=== PATIENT | male | born 1975 | race African-American/Black ===

== ENCOUNTER 2019-05-16 11:55 | Inpatient (IN) | payer MEDICARE, SELFPAY ==
[2019-05-16] VITALS (10 sets, daily range): BP systolic 140–209; BP diastolic 83–124; PULSE 73–83; RESP 12–24; TEMP 36.6–36.9; O2SAT 94–100; BMI 23.0
--- NOTE | ~2019-05-16 | XR_ITS ---
EXAMINATION: XR chest 1V portable EXAM DATE: 05/16/2019 12:39 INDICATION: Hypertension. TECHNIQUE: Single frontal portable AP chest x-ray. Comparison is made to prior examination from 04/20. FINDINGS: Again there is cardiomegaly and pulmonary vascular congestion. Possible mild pulmonary herbert ma. No confluent consolidation, pneumothorax or pleural effusion suspected. There are no osseous abno rmalities identified. Overall congestive changes either stable or with mild interval improvement comp ared to prior study. IMPRESSION: Cardiomegaly, pulmonary vascular congestion. Possible mild pulmonary edema. Reviewed, dictated and finalized at location B. ETIC TAPE TYPEWRITER OPERATOR IMPRESSION: Cardiomegaly, pulmonary vascular congestion. Possible mild pulmona ry edema.
--- NOTE | ~2019-05-16 | CT_ITS ---
EXAMINATION: CT brain wo con EXAM DATE: 05/16/2019 13:06 INDICATION: Headache, hypertension. TECHNIQUE: Spiral CT of the head was performed without contrast. Axial, coronal and sagittal images were reviewed. The dose-length product (DLP) for this examination was 529.67 mGy-cm. The exposure w as tailored according to patient size, and iterative reconstruction (ASIR) was used as additional dos e reduction technique. There is no prior study for comparison. FINDINGS: There are scattered periventricular and subcortical hypodensities, a non-specific finding w ith differential diagnosis including premature chronic small vessel ischemic disease (especially if t he patient has cardiovascular risk factors), migraine headaches, demyelinating disease such as multip le sclerosis or acute disseminated encephalomyelitis (ADEM), vasculopathy, lyme's disease or reactive astrocytosis (gliosis) secondary to nonspecific etiology. There is no acute intraparenchymal hemorrhage. No evidence of intraparenchymal brain mass lesion. N o evidence of acute infarction. There is no mass effect or midline shift. The ventricles are normal in size. There are no extra-axial collections. There are no acute calvarial fractures. The orbits are unremarkable. Soft tissue is unremarkable. The visualized sinuses and mastoid air cells are wel l aerated. IMPRESSION: Moderate scattered nonspecific subcortical hypodensities unchanged. Reviewed, dictated and finalized at location B. ATOR SPECIALIST
--- NOTE | 2019-05-16 12:00 | ECG_ITS ---
Measurements Intervals [place] Rate: 78 P: 69 HI: 191 QRS: -20 QRSD: 96 T: 64 QT: 437 QTc: 499 Interpretive Statements SINUS RHYTHM LEFT ATRIAL ENLARGEMENT DELAYED PRECORDIAL R/S TRANSITION LEFT VENTRICULAR HYPERTROPHY AND ST-T CHANGE ST-T WAVE ABNORMALITY IN LATERAL LEADS- CONSIDER ISCHEMIA BASELINE ARTIFACT- I, II, III, AVR ABNORMAL ECG Electronically Signed On 05-16-2019 13:57:33 HEARING SCREENER by Pranav Adams D.O.
--- NOTE | 2019-05-16 12:09 | ED.GENADULT ---
HPI - General Adult General Chief complaint: Recheck/Abnormal Lab/Rx Stated complaint: HTN Time Seen by Provider: 05/16/19 11:56 Source: patient and EMS Mode of arrival: EMS History of Present Illness HPI narrative: Patient referred to the emergency room from dialysis center today because of elevated blood pressure. Patient did not have any dialysis today yet. Patient reports generalized headache started at 3 AM while watching [place] pressure. Patient denies any chest pain or shortness of breath. Patient have intermittent pain left upper extremity and left foot for months. Patient reports trouble controlling his blood pressure over the last few months. Related Data Home Medications Medication Instructions Recorded Confirmed calcium acetate(phosphat bind) 1,334 mg PO TIDWM 04/20/19 04/28/19 carvedilol 25 mg PO BID 04/20/19 04/28/19 citalopram 20 mg PO DAILY 04/20/19 04/28/19 clonidine HCl 0.3 mg PO BID 04/20/19 04/28/19 hydroxyzine HCl 25 mg PO BID 04/20/19 04/28/19 nifedipine 60 mg PO DAILY 04/20/19 04/28/19 Allergies Allergy/AdvReac Type Severity Reaction Status Date / Time shellfish derived Allergy Unknown Unknown Verified 04/28/19 17:56 shrimp Allergy Unknown Unknown Verified 04/28/19 17:56 venom-honey bee Allergy Unknown Unknown Verified 04/28/19 17:56 Cat Dander Allergy Unknown Unknown Uncoded 04/28/19 17:56 Review of Systems Review of Systems: Narrative: CONSTITUTIONAL: Denies fever, chills, or sweats. EYES: Denies visual changes, redness, or discharge. ENT: Denies rhinorrhea, congestion, sore throat, or otalgia. CARDIOVASCULAR: Denies chest pain, palpitations, or edema. RESPIRATORY: Denies cough or dyspnea. GASTROINTESTINAL: Denies abdominal pain, nausea, vomiting, or diarrhea. GENITOURINARY: Denies dysuria or hematuria. SKIN: Denies rash or itching. MUSCULOSKELETAL: Denies back pain, joint pain, or myalgia. Chronic left arm and left foot pain NEUROLOGIC: Denies headache, numbness, or weakness. PSYCHIATRIC: Denies anxiety or depression. [facility], LAT[facility] Past Medical History Medical History Acute uremia Anemia in CKD (chronic kidney disease) Chronic anemia Related to his renal failure. Congestive heart failure Echocardiogram in September 2017 showed diastolic dysfunction with ejection fraction of 55%. Coronary artery disease With history of VT. Most recent heart catheterization was in June 2018 at [facility], requiring no intervention. Depression with anxiety Patient with major depressive disorder and generalized anxiety disorder. End-stage renal disease on hemodialysis Patient of Dr. Candelario. He has dialysis Thursday, Thursday, and Thursday. Fractures History of ankle fracture which was repaired surgically. History of noncompliance with medical treatment Hypertension Hypertensive renal disease Pericardial effusion Moderate pericardial effusion noted by echo in 2018. Secondary hyperparathyroidism of renal origin Severe hypertension With severe concentric LVH noted on echocardiogram in 2018. Surgical History Surgical History History of ankle surgery ORIF at the age of 14. 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 Status post creation of arteriovenous fistula Left upper extremity. Family History Family History Other Hypertension Social History Social History Social History: The patient lives in [place] with his mother. He has 1 daughter. He is now working at a busy local restaurant, washing dishes. He designates his mother, Michelle woods, as his surrogate decision maker and he wishes to be a full code. He is a former smoker and quit in 2011. He denies alcohol and drug use. Gender identity (if verbalized by the patient): Male
[2019-05-16] MEDS: MORPHINE SULFATE 4 MG/ML INJ IV PUSH (12:49)
[2019-05-16 12:50] LABS: Basophils Percent Auto 0.2 % (0.2-1.2); Eosinophils Absolute Auto 0.2 K/mm3 (0-0.3); Hematocrit 27.6 % (42.0-52.0); Hemoglobin 8.5 g/dL (14.0-18.0); Immature Granulocyte Absolute 0.03 K/mm3 (0.00-0.031); Immature Granulocyte Percent A 0.3 % (0-0.5); Lymphocytes Absolute Auto 0.61 K/mm3 (0.9-3.2); Lymphocytes Percent Auto 6.7 % (18.3-44.2); Mean Corpuscular HGB Conc 30.8 g/dl (32-36); Mean Corpuscular Hemoglobin 29.7 pg (26-34); Mean Corpuscular Volume 96.5 fl (80-100); Mean Platelet Volume 9.8 fl (7.4-10.4); Monocytes Absolute Auto 0.6 K/mm3 (0.1-0.6); Monocytes Percent Auto 6.6 % (2.6-8.5); Neutrophils Absolute Auto 7.7 K/mm3 (1.3-6.7); Neutrophils Percent Auto 84.2 % (45.5-73.1); Platelet Count Result 264 k/mm3 (150-375); Red Blood Count 2.86 M/mm3 (4.6-6.20); Red Cell Distribution Width 17.3 % (11.5-14.5); White Blood Count 9.1 K/mm3 (4.5-10.0)
[2019-05-16] MEDS: NITROGLYCERIN OINTMENT 1 INCH DOSE TRANSDERM ×3 (12:50→23:14)
[2019-05-16] MEDS: ONDANSETRON INJ 4 MG/2 ML VIAL IV PUSH (12:50)
[2019-05-16] MEDS: hydrALAZINE HCL 20 MG/ML VIAL IV PUSH ×2 (12:50→13:45)
[2019-05-16 13:17] LABS: Alanine Aminotransferase 9 U/L (4-50); Albumin Level 4.2 g/dL (3.5-5.1); Alkaline Phosphatase 93 U/L (38-126); Aspartate Amino Transferase 19 U/L (17-59); Bilirubin,Total 0.5 mg/dL (0.2-1.3); Blood Urea Nitrogen 99 mg/dL (9-20); Calcium 9.9 mg/dL (8.4-10.2); Carbon Dioxide 31 mmol/L (22-30); Chloride 89 mmol/L (98-107); Estimated Glomerular Filt Rate 4; Glucose 109 mg/dL (75-110); Sodium 138 mmol/L (137-145)
[2019-05-16 13:18] LABS: Troponin I 0.064 ng/mL (0.000-0.034)
--- NOTE | 2019-05-16 13:56 | ECG_ITS ---
Measurements Intervals [place] Rate: 79 P: 59 CT: 192 QRS: 6 QRSD: 98 T: 74 QT: 438 QTc: 504 Interpretive Statements SINUS RHYTHM LEFT ATRIAL ENLARGEMENT LEFT VENTRICULAR HYPERTROPHY AND ST-T CHANGE DELAYED PRECORDIAL R/S TRANSITION ST-T WAVE ABNORMALITY IN LATERAL LEADS- CONSIDER ISCHEMIA ABNORMAL ECG Electronically Signed On 05-17-2019 7:04:48 PARTY HOST by Pranav Adams D.O.
--- NOTE | 2019-05-16 15:09 | ADMGEN ---
This patient, Pravin Carlin, was admitted to IMU Room 231-01 on 05-16-2019 at 1449. Patient/family oriented to hospital policies and general routines including ID bracelet, bed and alarms, visiting hours, pain management, procedures, bathroom and other care routines, personal items, smoking policy, room service/diet, and visiting hours. Valuables list has been completed. Information on how to activate the Rapid Response Team has been discussed. Patient/Family are encouraged to report perceived risks to care and to ask questions if they do not understand what they are told or what they should do.
[2019-05-16] MEDS: ACETAMINOPHEN 325 MG TABLET 650 MG PO ×2 (18:04→23:54)
[2019-05-16 19:20] LABS: Troponin I 0.065 ng/mL (0.000-0.034)
--- NOTE | 2019-05-16 23:00 | PM.IMHP ---
H&P: HPI History of Present Illness Chief complaint: Severe hypertension. Narrative: Pravin Carlin is a 43 year old male with longstanding history of severe hypertension, now with end-stage renal disease on hemodialysis, coronary artery disease, diastolic congestive heart failure, and anemia of chronic disease who presented to the emergency department from dialysis for evaluation of severe hypertension. He was due to have dialysis today, but his blood pressure was reportedly > 230 systolic and he was directed to the emergency department instead. In the emergency department he did complain of having headache that began approximately 03:00 hours. It is a diffuse throbbing headache, that has not improved despite better blood pressure control or Tylenol. He rates the pain an 8/10. The pain does not radiate and he denies photophobia and sensitivity to loud noises. He apparently mentioned chest pain in the emergency department and troponins were drawn, which came back elevated but have remained flat. He denies having chest pain to me at this time. He states compliance with his antihypertensives, and is concerned that his blood pressures continued to climb despite taking these medications. He denies visual changes, chest pain, shortness of breath, nausea, vomiting, he and lower extremity edema. Review of Systems Review of Systems: Narrative: Twelve systems were reviewed with pertinent positives and negatives as per HPI. No recent cold or flu-like symptoms. Patient is known to myself and the hospitalist service as he was admitted to us several times recently with GI symptoms including epigastric pain, nausea, and vomiting. Dr. Rice did an endoscopy on him April 29, 2019 which showed reflux esophagitis and duodenitis. The patient has been taking pantoprazole since that time with much improvement in his symptoms. He has been noticing some swelling of the left foot while standing at work, but that seems to resolve by morning time. No history of venous thromboembolism. Except as documented, all other systems were reviewed and are negative. [facility] Past Medical History Medical History (Updated 05/17/19 @ 01:54 by Eun Blackwood PA-C) Acute uremia Anemia in CKD (chronic kidney disease) Chronic anemia Related to his renal failure. Congestive heart failure Echocardiogram in September 2017 showed diastolic dysfunction with ejection fraction of 55%. Coronary artery disease With history of HI. Most recent heart catheterization was in June 2018 at [facility], requiring no intervention. Depression with anxiety Patient with major depressive disorder and generalized anxiety disorder. End-stage renal disease on hemodialysis Patient of Dr. Candelario. He has dialysis Thursday, Thursday, and Thursday. Fractures History of ankle fracture which was repaired surgically. History of noncompliance with medical treatment Hypertension Hypertensive renal disease Pericardial effusion Moderate pericardial effusion noted by echo in 2018. Reflux esophagitis With duodenitis noted on EGD 04/29/[address] Rice. Secondary hyperparathyroidism of renal origin Severe hypertension With severe concentric LVH noted on echocardiogram in 2018. Surgical History Surgical History History of ankle surgery ORIF at the age of 14. 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 Status post creation of arteriovenous fistula Left upper extremity. Family History Family History Grandparent Kidney failure Social History Social History (Updated 05/17/19 @ 01:54 by Eun Blackwood PA-C) Social History: The patient lives in [place] with his mother. He has 1 daughter. He is now working at a busy local restaurant, washing dishes. He designates his mother, Michelle Carlin, as his surrogate decision
[2019-05-17] VITALS (26 sets, daily range): BP systolic 124–193; BP diastolic 64–121; PULSE 66–80; RESP 16–20; TEMP 36–36.9; O2SAT 97–100
--- NOTE | 2019-05-17 | ECHO_ITS ---
Patient Info Name: Pravin Carlin Age: 43 years : 1975 Gender: Male Ht: 67 in Wt: 147 lbs BSA: 1.78 m2 HR: 75 bpm BP: 163 / 97 mmHg Heart Rhythm: Sinus Rhythm Technical Quality: Excellent Exam Date: 05/17/2019 3:45 PM Exam Location: [facility] Patient Status: Inpatient Admit Date: 05/16/2019 Staff Ordering Physician: Feng Mckeon MD Procedures Tech: Boby Nichole RDCS Attending Provider: Ishan Killian MD Referring Physician: Mike HODGSON; Exam Type: CA echo doppler color flow Study Info Indications I11.0 - Hypertensive heart disease with heart failure Complete two-dimensional, color flow and Doppler transthoracic echocardiogram is performed. Strain analysis performed. History/Risk Factors Hypertensive heart disease w/ elevated trops; HFpEF, HTN, Anemia. Summary 1. Mild right ventricular hypertrophy. 2. There is trace tricuspid valve regurgitation. 3. Unable to estimate PA systolic pressure due to poor spectral resolution of tricuspid regurgitant jet velocity. 4. There is trivial pericardial effusion. 5. Left ventricular systolic function is normal, estimated at 55-60%. 6. There is very severe concentric increased left ventricular wall thickness up to 2.5cm. 7. The left ventricular diastolic function is grade I diastolic dysfunction. 8. Global longitudinal strain is severely elevated at -8 %. Left Ventricle Left ventricular chamber dimension is normal. Left ventricular systolic function is normal, estimated at 55-60%. There is very severe concentric increased left ventricular wall thickness up to 2.5cm. The left ventricular diastolic function is grade I diastolic dysfunction. E/e' 20.7 is abnormal. Global longitudinal strain is severely elevated at -8 %. Right Ventricle Right ventricular chamber dimension is normal. Right ventricular systolic function is normal. Mild right ventricular hypertrophy. Left Atria Left atrial chamber dimension is mildly enlarged. Right Atria Right atrial chamber dimension is moderately enlarged. Aortic Valve The aortic valve is trileaflet. There is no aortic valve stenosis. There is trace aortic valve regurgitation. Pulmonic Valve The pulmonic valve is normal. There is no pulmonic regurgitation. Mitral Valve The mitral valve has normal leaflets. There is mild mitral valve regurgitation. Tricuspid Valve The tricuspid valve leaflets are normal. There is trace tricuspid valve regurgitation. Unable to estimate PA systolic pressure due to poor spectral resolution of tricuspid regurgitant jet velocity. Pericardium/Pleural The pericardium appears normal. There is trivial pericardial effusion. Inferior Vena Cava Normal inferior vena cava with >50% collapse upon inspiration consistent with normal right atrial pressure, 5 mmHg. Aorta The aortic root size at the sinus of Valsalva is normal. Left Ventricular Outflow Tract Name Value Normal LVOT 2D LVOT Diameter 2.1 cm LVOT Doppler LVOT Peak Gradient 10 mmHg LVOT Mean Gradient 4 mmHg LVOT VTI
[2019-05-17] MEDS: MORPHINE SULFATE 2 MG/ML INJ IV PUSH ×2 (01:27→14:20)
[2019-05-17] MEDS: NITROGLYCERIN OINTMENT 1 INCH DOSE TRANSDERM (05:34)
[2019-05-17] MEDS: ACETAMINOPHEN 325 MG TABLET 650 MG PO ×2 (06:00→12:22)
--- NOTE | 2019-05-17 06:00 | ECG_ITS ---
Measurements Intervals [place] Rate: 75 P: 51 NH: 172 QRS: -19 QRSD: 94 T: 34 QT: 463 QTc: 517 Interpretive Statements SINUS RHYTHM LEFT ATRIAL ENLARGEMENT LEFT VENTRICULAR HYPERTROPHY AND ST-T CHANGE T WAVE ABNORMALITY IN LATERAL LEADS- CONSIDER ISCHEMIA BASELINE ARTIFACT- V2 ABNORMAL ECG Electronically Signed On 05-17-2019 14:14:25 FLIGHT TEST DATA ACQUISITION TECHNICIAN by Pranav Adams D.O.
[2019-05-17] MEDS: carvediloL 25 MG TABLET PO ×2 (09:13→17:09)
[2019-05-17] MEDS: CLONIDINE HCL 0.1 MG TABLET 0.3 MG PO ×2 (09:13→17:16)
[2019-05-17] MEDS: NIFEdipine 30 MG TAB.ER.24 60 MG PO (09:13)
[2019-05-17 09:25] LABS: Hematocrit 28.4 % (42.0-52.0); Hemoglobin 8.8 g/dL (14.0-18.0); Mean Corpuscular Hemoglobin 29.4 pg (26-34); Mean Platelet Volume 9.7 fl (7.4-10.4); Platelet Count Result 261 k/mm3 (150-375); Red Blood Count 2.99 M/mm3 (4.6-6.20); Red Cell Distribution Width 17.2 % (11.5-14.5); White Blood Count 5.9 K/mm3 (4.5-10.0)
[2019-05-17 09:46] LABS: Blood Urea Nitrogen 83 mg/dL (9-20); Calcium 8.8 mg/dL (8.4-10.2); Carbon Dioxide 31 mmol/L (22-30); Chloride 91 mmol/L (98-107); Estimated CRCL calculation 8 ml/min; Estimated Glomerular Filt Rate 6; Glucose 104 mg/dL (75-110); Potassium 3.7 mmol/L (3.4-5.0); Sodium 135 mmol/L (137-145)
--- NOTE | 2019-05-17 11:05 | PM.PNNEP ---
Progress Note: A&P Assessment and Plan (1) End stage renal disease: Code(s): N18.6 - End stage renal disease Status: Acute Assessment and Plan: HD today and likely plan HD tomorrow to get back on /W/ schedule FULL CONSULT TO FOLLOW Subjective Date/time seen: 05/17/19 11:05 Tolerating dialysis at the time of my visit (seen on HD at ~ 10:55AM); only complaint is feeling hot and a headache; no other distress voiced at this time. Exam Narrative: Exam Narrative: General: WD/WN male in NAD Heart: normal S1 and S2; no rub Lungs: clear to auscultation Abdomen: soft, nontender, nondistended, positive bowel sounds Extremities: no cyanosis or clubbing; no edema Skin: warm and dry Objective Data Vital Signs Vital Signs: Vital Signs Temp Pulse Pulse Resp BP BP Pulse Ox 05/17/19 10:30 76 159/98 H 05/17/19 10:15 74 187/98 H 05/17/19 10:00 75 169/94 H 05/17/19 09:45 75 172/106 H 05/17/19 09:30 73 191/114 H 05/17/19 09:15 78 168/113 H 05/17/19 09:13 72 05/17/19 09:00 72 185/115 H 05/17/19 08:45 70 193/121 H 05/17/19 08:32 36.6 C 70 70 18 178/114 H 177/114 H 05/17/19 08:00 72 05/17/19 07:38 36.6 C 70 16 176/109 H 100 05/17/19 06:00 73 05/17/19 04:00 36.7 C 73 20 155/96 H 99 05/17/19 02:00 70 05/17/19 00:00 73 18 05/16/19 23:59 36.6 C 73 18 160/91 H 97 05/16/19 22:00 76 05/16/19 20:00 82 18 05/16/19 19:39 36.6 C 75 18 160/87 H 100 05/16/19 18:00 36.7 C 78 16 151/91 H 100 05/16/19 16:00 79 05/16/19 15:00 36.6 C 80 16 147/83 H 100 05/16/19 14:40 81 12 140/89 99 05/16/19 14:32 81 12 140/89 99 05/16/19 11:53 36.9 C 78 24 H 209/124 H 94 Intake/Output Intake/Output: Intake & Output 05/14/19 05/15/19 05/16/19 05/17/19 23:59 23:59 23:59 23:59 Intake Total 1200 300 Output Total 475 Balance 1200 -175 Meds/Results Medications: Active Medications Generic Name Dose Route Start Last Admin Trade Name Freq PRN Reason Stop Dose Admin Acetaminophen 650 mg 05/16/19 16:50 05/17/19 06:00 Tylenol Tablet PO 650 mg Q6H PRN Administration Mild Pain (1-3) or Fever Aspirin 81 mg 05/17/19 08:00 Aspirin Chewable PO DAILY@0800 [facility] Calcium Acetate 1,334 mg 05/17/19 08:00 Phoslo PO TIDWM [facility] Carvedilol 25 mg 05/17/19 09:00 05/17/19 09:13 Coreg PO 25 mg BID [facility] Administration Citalopram Hydrobromide 20 mg 05/17/19 09:00 Celexa PO DAILY [facility] Clonidine HCl 0.3 mg 05/17/19 09:00 05/17/19 09:13 Catapres PO 0.3 mg BID [facility] Administration Epoetin Benjamin 10,000 units 05/18/19 17:00 Epogen IV PUSH MoWeFr@1700 [facility] Hydroxyzine HCl 25 mg 05/17/19 09:00 Atarax Tablet PO BID [facility] Nifedipine 60 mg 05/17/19 09:00 05/17/19 09:13 Procardia Xl PO 60 mg DAILY [facility] Administration Nitroglycerin 1 inch 05/16/19 18:00 05/17/19 05:34 Nitroglycerin Oint 1 Inch TRANSDERM 1 inch Q6HR [facility] Administration Pantoprazole Sodium 40 mg 05/17/19 09:00 Protonix PO QAM [facility] Radiology Results: ITS Impressions Chest X-Ray 05/16/19 12:43 IMPRESSION: Cardiomegaly, pulmonary vascular congestion. Possible mild pulmonary edema. Head CT 05/16/19 13:10 IMPRESSION: Moderate scattered nonspecific subcortical hypodensities unchanged. Labs Labs: Laboratory Tests 05/17/19 09:11 05/17/19 09:11
[2019-05-17] MEDS: CALCIUM ACETATE 667 MG TABLET 1334 MG PO ×2 (12:23→17:08)
[2019-05-17] MEDS: PANTOPRAZOLE 40 MG TABLET PO (12:23)
[2019-05-17] MEDS: ASPIRIN 81 MG CHEWABLE TABLET PO (12:23)
[2019-05-17] MEDS: CITALOPRAM HYDROBROMIDE 20 MG TABLET PO (12:23)
[2019-05-17] MEDS: hydrOXYzine HCL 25 MG TABLET PO ×2 (12:24→17:08)
[2019-05-17] MEDS: NIFEdipine 30 MG TAB.ER.24 PO (14:21)
--- NOTE | 2019-05-17 22:02 | PM.IMPN ---
Progress Note: A&P Assessment and Plan (1) Uncontrolled hypertension: Code(s): I10 - Essential (primary) hypertension Status: Acute Assessment and Plan: Patient states compliance with his medication and dialysis. increase his nifedipine to 90 mg daily. Blood pressures have improved and should be able to discharge after dialysis 05/18. (2) Chronic anemia: Code(s): D64.9 - Anemia, unspecified Status: Acute Assessment and Plan: Hemoglobin and hematocrit are a bit lower than what they have been running, but with his most recent hospitalizations he was a little dehydrated from vomiting and diarrhea. For now we will just continue to monitor. (3) End-stage renal disease on hemodialysis: Code(s): N18.6 - End stage renal disease; Z99.2 - Dependence on renal dialysis Status: Acute Assessment and Plan: Dr. Candelario consulted for hemodialysis. dialysis today and assume repeat 05/18 for his Thursday, Thursday, Thursday schedule (4) Elevated troponin: Code(s): R79.89 - Other specified abnormal findings of blood chemistry Status: Acute Assessment and Plan: Apparently he had some chest pain earlier today, but is chest pain-free. Troponins are flat, likely these are elevated in the setting of poorly controlled hypertension and end-stage renal disease. and lower than they were last admission, with no evidence of ischemia Subjective Date/time seen: 05/17/19 22:02 Interval history: date of visit 05/17. 43-year-old hypertensive black male with end-stage renal disease admitted with chest discomfort, accelerated hypertension. He states that he takes his medications regularly. Complaining of headache now from the nitroglycerin post dialysis Exam Narrative: Exam Narrative: blood pressure 136/82 pulse is 76 afebrile General: Well-developed, chronically ill-appearing male supine in bed in no acute distress. HEENT: Normocephalic, atraumatic. PERRL, EOMI. Sclerae anicteric. Neck: Supple. Respiratory: Lungs are clear to auscultation bilaterally. Cardiovascular: Regular rate and rhythm with S1-S2. Gastrointestinal: Abdomen is soft, nontender, and nondistended with positive bowel sounds. Skin: Warm and dry. No rash or lesions on limited exam. Extremities: No cyanosis, clubbing, or edema. Radial and pedal pulses intact. Large left upper extremity fistula with palpable thrill and bruit. Neurological: Alert. Cranial nerves 2-12 are grossly intact. No gross focal deficits to casual conversation. Objective Data Vital Signs Vital Signs: Vital Signs - 24 hr 05/16/19 23:59 05/17/19 00:00 05/17/19 02:00 Temperature 36.6 C Pulse Rate 73 73 70 Pulse Rate [Radial] Respiratory Rate 18 18 Blood Pressure 160/91 H Blood Pressure [Right Arm] Pulse Oximetry 97 05/17/19 04:00 05/17/19 06:00 05/17/19 07:38 Temperature 36.7 C 36.6 C Pulse Rate 73 73 70 Pulse Rate [Radial] Respiratory Rate 20 16 Blood Pressure 155/96 H 176/109 H Blood Pressure [Right Arm] Pulse Oximetry 99 100 05/17/19 08:00 05/17/19 08:32 05/17/19 08:45 Temperature 36.6 C Pulse Rate 72 70 70 Pulse Rate [Radial] 70 Respiratory Rate 18 Blood Pressure 178/114 H 193/121 H Blood Pressure [Right Arm] 177/114 H Pulse Oximetry 05/17/19 09:00 05/17/19 09:13 05/17/19 09:15 Temperature Pulse Rate 72 72 78 Pulse Rate [Radial] Respiratory Rate Blood Pressure 185/115 H 168/113 H Blood Pressure [Right Arm] Pulse Oximetry 05/17/19 09:30 05/17/19 09:45 05/17/19 10:00 Temperature Pulse Rate 73 75 75 Pulse Rate [Radial] Respiratory Rate Blood Pressure 191/114 H 172/106 H 169/94 H Blood Pressure [Right Arm] Pulse Oximetry 05/17/19 10:15 05/17/19 10:30 05/17/19 10:45 Temperature Pulse Rate 74 76 77 Pulse Rate [Radial] Respiratory Rate Blood Pressure 187/98 H 159/98 H 165/97 H Blood Pressu
[2019-05-18] VITALS (20 sets, daily range): BP systolic 102–157; BP diastolic 65–97; PULSE 70–80; RESP 13–18; TEMP 36–36.6; O2SAT 97–100
[2019-05-18] MEDS: ACETAMINOPHEN 325 MG TABLET 650 MG PO ×2 (00:17→08:45)
[2019-05-18 06:12] LABS: Hematocrit 34.1 % (42.0-52.0); Hemoglobin 10.6 g/dL (14.0-18.0); Mean Corpuscular HGB Conc 31.1 g/dl (32-36); Mean Corpuscular Hemoglobin 29.8 pg (26-34); Mean Corpuscular Volume 95.8 fl (80-100); Mean Platelet Volume 9.8 fl (7.4-10.4); Platelet Count Result 318 k/mm3 (150-375); Red Blood Count 3.56 M/mm3 (4.6-6.20); Red Cell Distribution Width 17.2 % (11.5-14.5); White Blood Count 7.5 K/mm3 (4.5-10.0)
[2019-05-18 06:29] LABS: Blood Urea Nitrogen 67 mg/dL (9-20); Calcium 9.4 mg/dL (8.4-10.2); Carbon Dioxide 33 mmol/L (22-30); Chloride 87 mmol/L (98-107); Estimated CRCL calculation 7 ml/min; Estimated Glomerular Filt Rate 6; Glucose 109 mg/dL (75-110); Potassium 4.1 mmol/L (3.4-5.0); Sodium 135 mmol/L (137-145)
[2019-05-18] MEDS: CITALOPRAM HYDROBROMIDE 20 MG TABLET PO (08:34)
[2019-05-18] MEDS: ASPIRIN 81 MG CHEWABLE TABLET PO (08:34)
[2019-05-18] MEDS: CLONIDINE HCL 0.1 MG TABLET 0.3 MG PO (08:34)
[2019-05-18] MEDS: CALCIUM ACETATE 667 MG TABLET 1334 MG PO ×2 (08:34→13:02)
[2019-05-18] MEDS: PANTOPRAZOLE 40 MG TABLET PO (08:35)
[2019-05-18] MEDS: carvediloL 25 MG TABLET PO (08:38)
[2019-05-18] MEDS: hydrOXYzine HCL 25 MG TABLET PO (08:41)
--- NOTE | 2019-05-18 09:53 | PC.NURSE ---
0900 to Dialysis via bed.
--- NOTE | 2019-05-18 12:11 | PM.CNNEP ---
Assessment and Plan Assessment and plan (1) End stage renal disease: Code(s): N18.6 - End stage renal disease Status: Acute (2) Uncontrolled hypertension: Code(s): I10 - Essential (primary) hypertension Status: Acute (3) Headache: Qualifiers: Headache chronicity pattern: unspecified pattern Headache type: unspecified Intractability: not intractable Qualified Code(s): R51 - Headache Code(s): R51 - Headache Status: Acute Assessment and Plan: . Additional Plan Pravin has end-stage renal disease and is currently receiving dialysis. He received dialysis yesterday as they were unable to do his dialysis treatment on Thursday due to the number of patients requiring dialysis that day in the hospital. His blood pressure appears to be doing reasonably well at this time and his headache does seem to be doing somewhat better as well. In spite of his complaint of chest pain in the emergency room, he did not relate this to myself at the time of my visit. At this point, I will continue dialysis support while he remains hospitalized and continue to make further adjustments in his dialysis prescription as deemed necessary to maintain stability in his chronic kidney disease parameters. I will continue to follow patient with you while he remains hospitalized and make further recommendations during his hospital course. Thank you for allowing me participate in the care of this patient. History of Present Illness Reason for Consult Consult date: 05/18/19 Reason for consult: end stage renal disease Chief Complaint Chief complaint: Severe hypertension. History of Present Illness Narrative: The patient is a 43 year old male with a past medical history as outlined below who presented to the [facility] emergency department for evaluation of severe hypertension. The patient to his scheduled dialysis treatment at his dialysis center where it was noted that his blood pressure was reportedly > 230 systolic. Furthermore, he complained of having a headache as well so he was directed to the emergency department for further evaluation. Work-up and evaluation in the ER demonstrated his severe hypertension and his headache that he described as throbbing which apparently did not improve with BP control or Tylenol. He states the headache pain is was an 8/10 in severity with no radiation -- no reported photophobia noted. He apparently mentioned chest pain in the emergency department as well and troponins were drawn which came back elevated but have remained flat. He states compliance with his antihypertensives, and is concerned that his blood pressures continued to climb despite taking these medications. He denies visual changes, chest pain, shortness of breath, nausea, vomiting, he and lower extremity edema. Renal consultation was requested due to his known history of end-stage renal disease. He normally dialyzes on a Thursday schedule in the care of Dr. chio Candelario. The patient is somewhat familiar to me as he initially started on dialysis under my care prior to his transfer to another dialysis Center under the care of Dr. Candelario. Etiology of his kidney disease is due to his severe hypertension and much as it is elevated currently, this was the case on his multiple hospitalizations here [facility] prior to his initiation of dialysis. There has been some concern that compliance with medications is questionable but he does emphatically state that he has been taking his medications as prescribed and previously they had kept his blood pressure controlled but now they do not seem to. He had dialysis yesterday in the hospital and is currently receiving dialysis now the time of this dictation to get him back to his Thursday schedule. He appears to be fairly comfortable at this time with no reported issues with regard to chest pain, headache, shortness of Breath or any o
[2019-05-18] MEDS: EPOETIN ALFA 10,000 UNITS/ML VIAL 10000 UNITS IV PUSH (12:14)
--- NOTE | 2019-05-18 13:00 | PC.NURSE ---
1300 Returned from Dialysis via bed.
[2019-05-18] MEDS: NIFEdipine 30 MG TAB.ER.24 90 MG PO (13:03)
--- NOTE | 2019-05-20 17:09 | PM.DS ---
DS: Diagnosis Admitting Diagnosis Admitting Diagnosis: Essential (primary) hypertension Discharge Diagnosis (1) Uncontrolled hypertension: Code(s): I10 - Essential (primary) hypertension Status: Acute Assessment and Plan: Patient states compliance with his medication and dialysis. increase his nifedipine to 90 mg daily. Blood pressures improved and was able to be discharged after dialysis 05/18, at which time his blood pressure is 124/76 with a pulse of 72 (2) Chronic anemia: Code(s): D64.9 - Anemia, unspecified Status: Acute Assessment and Plan: Hemoglobin 10.6 on the day of discharge essentially the same as it has been in the past (3) End-stage renal disease on hemodialysis: Code(s): N18.6 - End stage renal disease; Z99.2 - Dependence on renal dialysis Status: Acute Assessment and Plan: Was dialyzed 2 days in a row and will review resume his Thursday schedule as an outpatient (4) Elevated troponin: Code(s): R79.89 - Other specified abnormal findings of blood chemistry Status: Acute Assessment and Plan: Apparently he had some chest pain on admission, but remained chest pain-free the remainder of his hospitalization. Troponins are flat, likely these are elevated in the setting of poorly controlled hypertension and end-stage renal disease. and lower than they were last admission, with no evidence of ischemia Echocardiogram revealed normal ejection fraction with left ventricular hypertrophy and no wall motion abnormalities DS: Summary Hospital Course Hospital Course: 43-year-old hypertensive black male with chronic renal failure on hemodialysis presented with accelerated hypertension some chest discomfort. Pressure quickly came under control with resumption of his usual medications and 2 sessions of dialysis. Increase his nifedipine to 90 daily but call from the pharmacy related that insurance was no longer covering nifedipine and may have to switch back to amlodipine. There were contacting his flatbed press operator Dr. Candelario to determine which course of action he wanted to take Time Spent with Patient Time attestation: Total time spent providing and/or coordinating discharge services: 35 minutes Exam Narrative: Exam Narrative: Condition on discharge Blood pressure 124/76 pulse is 72 afebrile Lungs clear CV regular rate rhythm Extremities without edema Abdomen is soft nontender Tolerating his renal diet and ambulating without assistance DS: Data Data Completed and Pending Labs on day of discharge: Preliminary micro results at discharge 05/16/19 16:38 Blood Culture - Preliminary Blood 05/16/19 16:38 Blood Culture - Preliminary Blood Discharge Plan Discharge Attending physician on discharge: Feng Mckeon Consulting providers: Kimo Candelario Discharging Clinician: Feng Mckeon Patient Disposition: Home, Self-Care Activity: as tolerated Diet: renal Discharge Instructions: continue ,, Thursday dialysis Patient Instructions: Antibiotic Form, Heart Failure (DC) Stand Alone Forms: General Discharge Information Follow-up/Referrals: Kimo Candelario MD [Physician] - Keep Reg. Scheduled Appt. Discharge Medications: New nifedipine [Procardia XL] 30 mg Tablet Extended Release 24hr 90 mg PO DAILY Qty: 30 RF: 0 Continued carvedilol 25 mg tablet 25 mg PO BID RF: 0 citalopram 20 mg tablet 20 mg PO DAILY RF: 0 hydroxyzine HCl 25 mg Tablet 25 mg PO BID RF: 0 clonidine HCl 0.3 mg tablet 0.3 mg PO BID RF: 0 calcium acetate(phosphat bind) 667 mg capsule 1,334 mg PO TIDWM RF: 0 Epogen 10,000 unit/mL Solution 10,000 units IVPUSH MOWEFR Qty: 0 RF: 0 pantoprazole 40 mg tablet,delayed release (DR/EC) 40 mg PO QAM Qty: 30 RF: 0 Discontinued nifedipine 60 mg tablet extended release 60 mg PO DAILY RF: 0 Date of admis
== END 2019-05-18 15:50 | disposition home or self-care (01) | DRG 291 ==
LOC: ANHED 13:52 → ANHIMU 14:12 → ANH3MED 05-18 15:03 → ANHIMU 05-23 08:19
PROVIDERS: Internal Medicine Nephrology; Physician Assistant; Admitting Provider Internal Medicine; Emergency Provider Emergency Medicine; Visit Provider Internal Medicine
DX: I13.2 Hypertensive heart and chronic kidney disease with heart failure and with stage 5 chronic kidney disease, or end stage renal disease (principal); N18.6 End stage renal disease; I50.32 Chronic diastolic (congestive) heart failure; N25.81 Secondary hyperparathyroidism of renal origin; F41.8 Other specified anxiety disorders; D63.1 Anemia in chronic kidney disease; I25.10 Atherosclerotic heart disease of native coronary artery without angina pectoris; I25.2 Old myocardial infarction; Z99.2 Dependence on renal dialysis; Z87.891 Personal history of nicotine dependence; R51 Headache
CPT/HCPCS: 36415; 70450; 71045; 80048; 80053; 84484; 85025; 85027; 87040; 87081; 93005; 93306; 96374; 96375; 96376; 99291; A9270; G0257; J0360; J1200; J2270; J2405; Q4081

== ENCOUNTER 2019-06-25 02:08 | Emergency (ER) | payer MEDICARE, MEDICAID, SELFPAY ==
--- NOTE | 2019-06-25 02:13 | PC.NURSE ---
PT REQUESTING TO HAVE DIALYSIS DONE IN ED [place], STATES THAT HE HAS NOT BEEN ALL WEEK. WHEN PATIENT WAS NOTIFIED THAT WE DO NOT HAVE DIALYSIS IN THE ED HE STATED IM HERE FOR DIALYSIS. PT NOTIFIED ONCE AGAIN THAT WE DO NOT DO DIALYSIS HERE IN THE ED. PT REFUSED TO LET HASH SLINGER PUT WRIST BAND ON PATIENT. STATED IM GOING TO ANOTHER HOSPITAL PT THEN WALKED OUT OF ED.
--- NOTE | 2022-03-16 10:13 | PM.CNNEP ---
Assessment and Plan Assessment and plan (1) End stage renal disease: Code(s): N18.6 - End stage renal disease Status: Acute Assessment and Plan: Pravin has end-stage renal disease. This is from hypertension. In the past he had been in an out of the hospital with symptoms of under dialysis including pericardial effusion, nausea etc. Lately however seems to have been showing up for his dialysis better. Currently the patient comes in because of shortness of breath. He also has some swelling he did leave the dialysis unit to kilos above his dry weight yesterday so he does still have some volume overload. His chest x-ray shows mild changes and he is not on oxygen so I do not think we need to do emergent dialysis today. He does still make some urine so we will give some diuretics. His high blood pressure contributes to his shortness of breath as well. I think his volume status is always a bit above his dry weight because of his large weight gain and so the fluid by itself is probably not making him short of breath. His shortness of breath is better timed with his lack of blood pressure medications and high bp. will get him it back on his blood pressure meds. This will probably make him feel better more than anything. (2) Volume overload: Code(s): E87.70 - Fluid overload, unspecified Status: Acute Assessment and Plan: The patient does have volume overload. We will do dialysis tomorrow to get rid of some of this fluid. Then depending on his volume status we can do his next dialysis Thursday or . (3) Uncontrolled hypertension: Code(s): I10 - Essential (primary) hypertension Status: Acute Assessment and Plan: he is on carvedilol, clonidine, and nifedipine. Will restart all of these medications. (4) Secondary hyperparathyroidism of renal origin: Code(s): N25.81 - Secondary hyperparathyroidism of renal origin Status: Acute Assessment and Plan: We will check a phosphorus level in the morning. He does take calcium acetate 2 with meals. (5) Anemia in CKD (chronic kidney disease): Qualifiers: Chronic kidney disease stage: on chronic dialysis Qualified Code(s): N18.6 - End stage renal disease; D63.1 - Anemia in chronic kidney disease; Z99.2 - Dependence on renal dialysis Code(s): N18.9 - Chronic kidney disease, unspecified; D63.1 - Anemia in chronic kidney disease Status: Acute Assessment and Plan: The patient gets Epogen with dialysis. His blood pressure needs to be a little bit better before we can start this. History of Present Illness Reason for Consult Consult date: 03/16/22 Chief Complaint Chief complaint: I CAME FOR DIALYSIS History of Present Illness Narrative: Pravin Is a very pleasant 46-year-old gentleman who has multiple medical problems including end-stage renal disease on dialysis 3 times a week on Tuesdays and Saturdays, hypertension, renal osteodystrophy, anemia of chronic kidney disease, coronary disease status post myocardial infarction, reflux esophagitis, pericardial effusion due to under dialysis in 2018,. The patient apparently does dialysis on Tuesdays and Saturdays. He went to dialysis yesterday and had 6L on. They were able to get 4L off. His blood pressure has been high because he ran out of medicine a few days ago. The nurses at the dialysis unit have been trying to get refills but have been unsuccessful apparently so he is not taking medicine for a couple of days. In the meantime the patient started getting more short of breath 2 or 3 days ago. He thought that removing the fluid yesterday might help with but it did not. He decided to come to the ER today because he was so short of breath. He has not had any chest pain. No cough. No fevers. No ENT symptoms. no back pain. He does have bilateral swelling which is a chronic issue with him. The
[2022-03-16 20:15] LABS: Hepatitis B Surface Antigen Negative (Negative)
== END 2019-06-25 02:13 | disposition left against medical advice (07) ==
PROVIDERS: Internal Medicine Nephrology
DX: Z53.21 Procedure and treatment not carried out due to patient leaving prior to being seen by health care provider (principal)
CPT/HCPCS: 99199

== ENCOUNTER 2019-07-27 08:53 | Inpatient (IN) | payer MEDICARE, MEDICAID, SELFPAY ==
[2019-07-27] VITALS (29 sets, daily range): BP systolic 128–208; BP diastolic 71–131; PULSE 74–85; RESP 8–27; TEMP 3.7–37; O2SAT 97–100; BMI 23.4
--- NOTE | ~2019-07-27 | XR_ITS ---
EXAMINATION: XR chest 1V portable DATE: 07/27/2019 09:53 INDICATION: Chronic renal failure with hypotension. TECHNIQUE: frontal view of the chest was obtained. COMPARISON: Chest radiograph dated 05/16/2019 FINDINGS: Mild elevation of the right hemidiaphragm. New airspace opacities in the right lower lung zone. Blunt ing at the right costophrenic angle consistent with small right pleural effusion. Left lung remains c lear. No pneumothorax or left-sided pleural effusion. Cardiomegaly. IMPRESSION: 1. Small right pleural effusion with new opacities in the right lower lung zone which could represent associated atelectasis or pneumonia. 2. Cardiomegaly. Reviewed, dictated and finalized at location A.
--- NOTE | ~2019-07-27 | XR_ITS ---
EXAMINATION: XR chest 1V portable DATE: 07/28/2019 05:44 INDICATION: Follow-up pulmonary infiltrates. TECHNIQUE: frontal view of the chest was obtained. COMPARISON: Chest radiograph dated 07/27/19 FINDINGS: Improved aeration in the right lower lung zone. Mild streaky atelectasis at the left lung base. No pu lmonary edema, pleural effusion or pneumothorax. The cardiomediastinal silhouette is normal. Visualiz ed bones and soft tissues are unremarkable. IMPRESSION: 1. Minimal left basilar atelectasis with improved aeration and resolution of prior opacities in the r ight lower lung zone. Reviewed, dictated and finalized at location A. IMPRESSION: 1. Minimal left basilar atelectasis with improved aeration and resolution of pr ior opacities in the right lower lung zone.
--- NOTE | 2019-07-27 04:10 | ADMIMU ---
This patient, Pravin Carlin, was admitted to IMU status, and placed in Intensive Care Unit-3. Patient/family oriented to hospital policies and general routines including ID bracelet, bed and alarms, visiting hours, pain management, procedures, bathroom and other care routines, personal items, smoking policy, room service/diet, and visiting hours. Valuables list has been completed. Information on how to activate the Rapid Response Team has been discussed. Patient/Family are encouraged to report perceived risks to care and to ask questions if they do not understand what they are told or what they should do.
--- NOTE | 2019-07-27 08:09 | PM.CNNEP ---
Assessment and Plan Assessment and plan (1) End stage renal disease: Code(s): N18.6 - End stage renal disease Status: Acute Assessment and Plan: The patient has end-stage renal disease. He is due for dialysis today. We can get this done. We have no labs at this hospital we will get some done now. This will help guide our therapy. His lungs are fairly clear but he probably does have fluid on since it has been so long since he has had a dialysis. We will take off some fluid. I am not sure why Augustina told him to come on instead of yesterday. I told him it if things are happening like this especially since he is not that ill right now it would have been a good idea to called his primary district attorney who could get him in some more to get dialysis sooner than . We discussed at length how outpatient therapies much more healthy than inpatient therapy. (2) Hypertension: Qualifiers: Hypertension type: unspecified Qualified Code(s): I10 - Essential (primary) hypertension Code(s): I10 - Essential (primary) hypertension Status: Acute Assessment and Plan: Blood pressure is actually pretty good right now. (3) Anemia in CKD (chronic kidney disease): Qualifiers: Chronic kidney disease stage: on chronic dialysis Qualified Code(s): N18.6 - End stage renal disease; D63.1 - Anemia in chronic kidney disease; Z99.2 - Dependence on renal dialysis Code(s): N18.9 - Chronic kidney disease, unspecified; D63.1 - Anemia in chronic kidney disease Status: Acute Assessment and Plan: Will check a hemoglobin to help us guide EPOgen therapy (4) Secondary hyperparathyroidism of renal origin: Code(s): N25.81 - Secondary hyperparathyroidism of renal origin Status: Acute Assessment and Plan: Will check a phosphorus level (5) Headache: Qualifiers: Headache chronicity pattern: unspecified pattern Headache type: unspecified Intractability: not intractable Qualified Code(s): R51 - Headache Code(s): R51 - Headache Status: Acute Assessment and Plan: This is most likely due to volume overload and blood pressure. His headache is gone right now. History of Present Illness Reason for Consult Consult date: 07/27/19 Chief Complaint Chief complaint: ESRD, Rule out Covid-19 History of Present Illness Narrative: Pravin is a very pleasant gentleman who has multiple medical problems including end-stage renal disease on dialysis 3 times a week, anemia, renal osteodystrophy, hypertension, congestive heart failure, coronary disease with [place], depression, anxiety, and GERD. Patient says he went to dialysis on Thursday and had a low-grade fever of 99. He apparently did get a treatment that day. Then he went back on Thursday and he had a fever of just over 100 and so they did a COVID test and they [facility] [place]. When he called over there apparently they told me could not dialyze till . So he had not had a treatment since Thursday. He said he was beginning to feel like fluid was building up and he had a headache so he came to the ER. He did not call his district attorney for advice on what to do. So went to an outside emergency room and his blood pressure is a little bit low so he was transferred Jorge for further care. Patient says he was short of breath but is not short of breath now. He is not on oxygen he is lying flat in bed. His headache is gone. He is on isolation in the ICU. He denies any chest pain. No nausea or vomiting. He does not have a cough. Review of Systems Constitutional: Constitutional: Reports no additional constitutional complaints Eyes: Eyes: Reports no additional eye complaints ENT: Reports system reviewed and no additional complaints, except as documented Cardiovascular: Cardiovascular: Reports no additional cardiovascular complaints Respiratory:
[2019-07-27 09:30] LABS: Hematocrit 30.3 % (42.0-52.0); Hemoglobin 9.9 g/dL (14.0-18.0); Mean Corpuscular HGB Conc 32.7 g/dl (32-36); Mean Corpuscular Hemoglobin 30.6 pg (26-34); Mean Corpuscular Volume 93.5 fl (80-100); Mean Platelet Volume 10.5 fl (7.4-10.4); Platelet Count Result 278 k/mm3 (150-375); Red Blood Count 3.24 M/mm3 (4.6-6.20); Red Cell Distribution Width 15.9 % (11.5-14.5); White Blood Count 7.7 K/mm3 (4.5-10.0)
[2019-07-27 09:58] LABS: Albumin Level 3.9 g/dL (3.5-5.1); Blood Urea Nitrogen 79 mg/dL (9-20); Calcium 7.9 mg/dL (8.4-10.2); Carbon Dioxide 21 mmol/L (22-30); Chloride 98 mmol/L (98-107); Estimated CRCL calculation 4 ml/min; Estimated Glomerular Filt Rate 3; Glucose 89 mg/dL (75-110); Phosphorus 7.8 mg/dL (2.5-4.5); Potassium 6.8 mmol/L (3.4-5.0); Sodium 132 mmol/L (137-145)
[2019-07-27] MEDS: CLONIDINE HCL 0.1 MG TABLET 0.3 MG PO ×2 (10:30→16:45)
[2019-07-27] MEDS: DEXTROSE 50% 25 GM/50 ML SYRINGE IV PUSH (10:30)
[2019-07-27] MEDS: SODIUM POLYSTYRENE SULFONONATE 15 GM/60 ML BTL 30 GM PO (10:30)
[2019-07-27] MEDS: carvediloL 25 MG TABLET PO ×2 (10:30→16:45)
[2019-07-27] MEDS: CITALOPRAM HYDROBROMIDE 20 MG TABLET PO (10:31)
[2019-07-27] MEDS: hydrOXYzine HCL 25 MG TABLET PO ×2 (10:31→16:46)
[2019-07-27] MEDS: PANTOPRAZOLE 40 MG TABLET PO (10:31)
[2019-07-27] MEDS: INSULIN HUMAN REGULAR (*BKC) 100 UNITS/ML 10 UNITS IV PUSH (10:34)
[2019-07-27] MEDS: CALCIUM ACETATE 667 MG TABLET 1334 MG PO ×2 (11:28→16:45)
[2019-07-27] MEDS: ACETAMINOPHEN 325 MG TABLET 650 MG PO (12:59)
--- NOTE | 2019-07-27 17:23 | PM.IMHP ---
H&P: HPI History of Present Illness Chief complaint: ESRD, Rule out Covid-19 Narrative: Date of visit 07/26 1030 Pravin Carlin is a 43 year old hypertensive black male with end-stage renal disease on hemodialysis Thursday. His last dialysis was Thursday the . He went for age usual dialysis session on Thursday the and had low-grade fever and was told had to go to a special session on . Became more short of breath and weak early a.m. presented to [facility]. Was slightly hypotensive with an elevated BN P and was transferred to our facilities for treatment of his fluid overload and chronic renal failure. He was COVID tested on the which is pending. He has had no more fever although minimal cough. Has been short of breath with exertion. States he feels fluid overloaded. He denies any diarrhea or gastrointestinal complaints. Anastacia last here at our hospital in May with accelerated hypertension and nifedipine was with increased on his usual medication list but is not even listed now. Review of Systems Review of Systems: Narrative: Constitutional prior present illness with steady appetite good Eye no double vision scotoma Mouth of pharyngitis laryngitis Pulmonary as per present illness slight dry cough and some shortness of breath CV no chest pain or palpitation GI no melena hematochezia diarrhea minimal urination with his renal failure Muscle skeletal no protect her joint discomfort Integument no skin breakdown rashes Psych affect appears appropriate Neuro no seizures no syncope PMFSH Past Medical History Medical History Acute uremia Anemia in CKD (chronic kidney disease) Chronic anemia Related to his renal failure. Congestive heart failure Echocardiogram in September 2017 showed diastolic dysfunction with ejection fraction of 55%. Coronary artery disease With history of IA. Most recent heart catheterization was in June 2018 at [facility], requiring no intervention. Depression with anxiety Patient with major depressive disorder and generalized anxiety disorder. End-stage renal disease on hemodialysis Patient of Dr. Candelario. He has dialysis Thursday, Thursday, and Thursday. Fractures History of ankle fracture which was repaired surgically. History of noncompliance with medical treatment Hypertension Hypertensive renal disease Pericardial effusion Moderate pericardial effusion noted by echo in 2017. Reflux esophagitis With duodenitis noted on EGD 04/29/[address] Rice. Secondary hyperparathyroidism of renal origin Severe hypertension With severe concentric LVH noted on echocardiogram in 2018. Surgical History Surgical History History of ankle surgery ORIF at the age of 14. 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 Status post creation of arteriovenous fistula Left upper extremity. Family History Family History Grandparent Kidney failure Social History Social History Social History: The patient lives in [place] with his mother. He has 1 daughter. He is now working at a busy local restaurant, washing dishes. He designates his mother, Michelle Carlin, as his surrogate decision maker and he wishes to be a full code. He is a former smoker and quit in 2011. He denies alcohol and drug use. Smoking status: Former smoker Second hand tobacco smoke exposure: No Alcohol intake: unknown Substance use: unknown Gender identity (if verbalized by the patient): Male Spiritual care concerns: No Agree to blood products: Yes Meds Home Medications and Allergies Home Medications Medication Instructions Recorded Confirmed Type calcium acetate(phosphat bind) 1,334 mg PO TIDWM
[2019-07-27] MEDS: NIFEdipine 30 MG TAB.ER.24 PO (18:38)
[2019-07-28] VITALS (10 sets, daily range): BP systolic 146–187; BP diastolic 80–117; PULSE 69–85; RESP 12–24; TEMP 36.8–37.1; O2SAT 100
[2019-07-28] MEDS: HEPARIN SODIUM 5,000 UNITS/ML VIAL 5000 UNITS SUB-Q (06:32)
[2019-07-28] MEDS: CITALOPRAM HYDROBROMIDE 20 MG TABLET PO (08:19)
[2019-07-28] MEDS: hydrOXYzine HCL 25 MG TABLET PO (08:19)
[2019-07-28] MEDS: CALCIUM ACETATE 667 MG TABLET 1334 MG PO ×2 (08:19→12:15)
[2019-07-28] MEDS: PANTOPRAZOLE 40 MG TABLET PO (08:19)
[2019-07-28] MEDS: carvediloL 25 MG TABLET PO (08:19)
[2019-07-28] MEDS: CLONIDINE HCL 0.1 MG TABLET 0.3 MG PO (08:19)
[2019-07-28 08:45] LABS: Basophils Percent Auto 0.3 % (0.2-1.2); Eosinophils Percent Auto 0.7 % (0-4.4); Hematocrit 39.1 % (42.0-52.0); Hemoglobin 12.3 g/dL (14.0-18.0); Immature Granulocyte Absolute 0.01 K/mm3 (0.00-0.031); Immature Granulocyte Percent A 0.2 % (0-0.5); Lymphocytes Absolute Auto 0.92 K/mm3 (0.9-3.2); Lymphocytes Percent Auto 15.5 % (18.3-44.2); Mean Corpuscular HGB Conc 31.5 g/dl (32-36); Mean Corpuscular Hemoglobin 29.4 pg (26-34); Mean Corpuscular Volume 93.3 fl (80-100); Monocytes Absolute Auto 0.6 K/mm3 (0.1-0.6); Monocytes Percent Auto 9.8 % (2.6-8.5); Neutrophils Absolute Auto 4.4 K/mm3 (1.3-6.7); Neutrophils Percent Auto 73.5 % (45.5-73.1); Platelet Count Result 333 k/mm3 (150-375); Red Blood Count 4.19 M/mm3 (4.6-6.20); Red Cell Distribution Width 15.5 % (11.5-14.5); White Blood Count 5.9 K/mm3 (4.5-10.0)
[2019-07-28 08:56] LABS: Blood Urea Nitrogen 47 mg/dL (9-20); Calcium 9.6 mg/dL (8.4-10.2); Carbon Dioxide 32 mmol/L (22-30); Chloride 91 mmol/L (98-107); Estimated CRCL calculation 6 ml/min; Estimated Glomerular Filt Rate 5; Glucose 98 mg/dL (75-110); Sodium 134 mmol/L (137-145)
--- NOTE | 2019-07-28 08:57 | PM.PNNEP ---
Progress Note: A&P Assessment and Plan (1) End stage renal disease: Code(s): N18.6 - End stage renal disease Status: Acute Assessment and Plan: The patient has end-stage renal disease. He is off his dialysis schedule. I am trying to figure out where he goes to dialysis. Long discussion with his home dialysis unit. So far I think that he is going to go to [facility] well if he continues to be COVID pending. If he is COVID negative then he can go back to his usual dialysis unit. He looks okay for discharge however I do not know which unit he is going to go to. Kevin is Thursday so he is already missed his dialysis and we would have to treat him before discharge. If he goes back to [facility] then he can go to dialysis tomorrow and he could be discharged today. COVID is pending still. It turns out that he never did get his COVID test as an outpatient. So ours is the only test pending. (2) Hypertension: Qualifiers: Hypertension type: unspecified Qualified Code(s): I10 - Essential (primary) hypertension Code(s): I10 - Essential (primary) hypertension Status: Acute Assessment and Plan: Blood pressure is actually pretty good right now. (3) Anemia in CKD (chronic kidney disease): Qualifiers: Chronic kidney disease stage: on chronic dialysis Qualified Code(s): N18.6 - End stage renal disease; D63.1 - Anemia in chronic kidney disease; Z99.2 - Dependence on renal dialysis Code(s): N18.9 - Chronic kidney disease, unspecified; D63.1 - Anemia in chronic kidney disease Status: Acute Assessment and Plan: Hemoglobin 12.3. (4) Secondary hyperparathyroidism of renal origin: Code(s): N25.81 - Secondary hyperparathyroidism of renal origin Status: Acute Assessment and Plan: Phosphorus is high. I am sure he is on binders at home. Unclear of his compliance with these. (5) Headache: Qualifiers: Headache chronicity pattern: unspecified pattern Headache type: unspecified Intractability: not intractable Qualified Code(s): R51 - Headache Code(s): R51 - Headache Status: Acute Assessment and Plan: His headache is gone right now. Subjective Date/time seen: 07/28/19 08:57 Interval history: Patient is alert. He is not short of breath. No chest pain Hungry for breakfast. Review of Systems Cardiovascular: Cardiovascular: Reports no additional cardiovascular complaints Respiratory: Respiratory: Reports no additional respiratory complaints Gastrointestinal: Gastrointestinal: Reports no additional gastrointestinal complaints Genitourinary: Genitourinary: Reports no additional male genitourinary complaints Exam Narrative: Exam Narrative: Well developed well-nourished in no acute distress Lungs clear Heart regular without rub Abdomen bowel sounds positive soft nontender Extremities no edema Skin no rash Objective Data Vital Signs Vital Signs: Vital Signs - 24 hr 07/27/19 10:00 07/27/19 10:30 07/27/19 12:00 Temperature 37.0 C Pulse Rate 76 75 78 Respiratory Rate 27 H Blood Pressure 168/104 H Pulse Oximetry 100 07/27/19 14:00 07/27/19 16:00 07/27/19 16:45 Temperature 36.6 C Pulse Rate 80 84 79 Respiratory Rate 10 L Blood Pressure 194/106 H Pulse Oximetry 97 07/27/19 18:00 07/27/19 19:54 07/27/19 20:00 Temperature 37.0 C Pulse Rate 77 80 78 Respiratory Rate 20 Blood Pressure 203/128 H 207/130 H Pulse Oximetry 97 07/27/19 20:15 07/27/19 20:30 07/27/19 20:35 Temperature 36.8 C Pulse Rate 79 77 80 Respiratory Rate 18 Blood Pressure 208/121 H 204/131 H 203/127 H Pulse Oximetry 07/27/19 20:40 07/27/19 21:00 07/27/19 21:15 Temperature Pulse Rate 77 78 78 Respiratory Rate Blood Pressure 194/128 H 189/129 H 179/121 H Pulse Oximetry 07/27/19 21:16 07/27/19 21:30 07/27/19 21:45 Temperature
[2019-07-28] MEDS: NIFEdipine 30 MG TAB.ER.24 60 MG PO (09:33)
[2019-07-28] MEDS: NIFEdipine 30 MG TAB.ER.24 PO (12:15)
[2019-07-28 13:42] LABS: SARS-CoV-2 RNA PCR Negative
--- NOTE | 2019-07-29 18:07 | PM.DS ---
DS: Diagnosis Admitting Diagnosis Admitting Diagnosis: Hypertensive chronic kidney disease with stage 5 chronic kidney disease or end stage renal disease Discharge Diagnosis (1) End-stage renal disease on hemodialysis: Code(s): N18.6 - End stage renal disease; Z99.2 - Dependence on renal dialysis Status: Acute Assessment and Plan: Admitted early a.m. with direct admit from [facility]. A was slightly hypotensive there. He had not had dialysis for approximately 5 days and with volume overloaded. Late on the D underwent hemodialysis and 3850 mL of fluid were removed.. (2) Hyperkalemia: Code(s): E87.5 - Hyperkalemia Status: Acute Assessment and Plan: Given Kayexalate, bicarb, and insulin prior to dialysis and potassium 4.0 the day of discharge (3) Hypertension: Qualifiers: Hypertension type: unspecified Qualified Code(s): I10 - Essential (primary) hypertension Code(s): I10 - Essential (primary) hypertension Status: Acute Assessment and Plan: Pressure is adequate at present time and was accelerated his last visit. Steadily amna while here and all of his usual antihypertensive for restarted and pressure down to 146 at discharge systolic (4) Chronic anemia: Code(s): D64.9 - Anemia, unspecified Status: Acute Assessment and Plan: Hemoglobin 9.9 essentially same as it has been and follow with Nephrology with Epogen (5) Pulmonary infiltrate: Code(s): R91.8 - Other nonspecific abnormal finding of lung field Status: Acute Assessment and Plan: Chest x-ray shows right lower infiltrate probably secondary to fluid overload. Afebrile . repeat chest x-ray a.m. after dialysis revealed resolution of infiltrate which we felt was probably fluid related. Blood cultures were no growth and COVID testing was negative. DS: Summary Hospital Course Hospital Course: 43-year-old hypertensive black male with chronic renal failure on hemodialysis transferred is direct admit from [facility] for dialysis since he was slightly hypotensive. Years pressure pressure slowly amna and all his blood pressure medicines were reinstituted. There was concern for infiltrate on chest x-ray but blood cultures were no growth, COVID with negative, and repeat chest x-ray after dialysis revealed resolution of infiltrate thought to be fluid related. He was discharged to resume his usual outpatient dialysis on 07/29. Time Spent with Patient Time attestation: Total time spent providing and/or coordinating discharge services: 35 minutes Exam Narrative: Exam Narrative: Condition on discharge Blood pressure 146/80 pulse is 100 saturating 100% on room air afebrile Lungs clear CV regular rate rhythm slightly tacky Abdomen soft nontender Extremities without edema distal pulses 2+ Neuro alert pleasant cooperative no focal deficits DS: Data Data Completed and Pending Labs on day of discharge: Preliminary micro results at discharge 07/27/19 20:51 Blood Culture - Preliminary Blood Discharge Plan Discharge Attending physician on discharge: Feng Mckeon Consulting providers: Tres Hanson Discharging Clinician: Feng Mckeon Patient Disposition: Home, Self-Care Activity: as tolerated Diet: renal and low sodium Discharge Instructions: Care Coordination. Patient arranged to go to [facility] [phone] on Tuesdays, , and Saturdays. Patient Instructions: Hypotension (DC) Stand Alone Forms: General Discharge Information Follow-up/Referrals: Kimo Candelario MD [Physician] - 07/30/19 (follow-up in dailysis on Thursday) UNKNOWN,DOCTOR [Primary Care Provider] - 2 Weeks Discharge Medications: Continued carvedilol 25 mg tablet 25 mg PO BID RF: 0 citalopram 20 mg tablet 20 mg PO DAILY RF: 0 hydroxyzine HCl 25 mg Tablet 25 mg PO BID RF: 0 clonidine HCl 0.3 mg t
== END 2019-07-28 15:10 | disposition home or self-care (01) | DRG 640 ==
PROVIDERS: Internal Medicine Nephrology; Admitting Provider Internal Medicine; Visit Provider Internal Medicine
DX: E87.70 Fluid overload, unspecified (principal); N18.6 End stage renal disease; I12.0 Hypertensive chronic kidney disease with stage 5 chronic kidney disease or end stage renal disease; Z99.2 Dependence on renal dialysis; Z20.828 Contact with and (suspected) exposure to other viral communicable diseases; D63.1 Anemia in chronic kidney disease; F41.8 Other specified anxiety disorders; E21.2 Other hyperparathyroidism; Z87.891 Personal history of nicotine dependence; E87.5 Hyperkalemia; N25.0 Renal osteodystrophy; I25.10 Atherosclerotic heart disease of native coronary artery without angina pectoris; I25.2 Old myocardial infarction; R51 Headache
CPT/HCPCS: 36415; 71045; 80048; 80069; 85025; 85027; 87040; 87635; A9270; G0257; J1644; J1815; J7030; U0003

== ENCOUNTER 2022-03-16 03:49 | Inpatient (IN) | payer MEDICARE, MEDICAID, SELFPAY ==
[2022-03-16] VITALS (25 sets, daily range): BP systolic 158–220; BP diastolic 96–130; PULSE 89–99; RESP 13–39; TEMP 36.7–37; O2SAT 92–100
--- NOTE | ~2022-03-16 | XR_ITS ---
EXAMINATION: XR chest 2V DATE: 03/16/2022 08:13 INDICATION: Shortness of breath. TECHNIQUE: Frontal and lateral views of the chest were obtained. COMPARISON: Chest single view 07/28/2019 FINDINGS: There is a diffuse interstitial pattern, consistent mild pulmonary edema. No pleural effusi on or pneumothorax. Cardiomegaly is noted. A left internal jugular central venous catheter is seen wi th tip in the proximal right atrium. IMPRESSION: 1. Mild pulmonary edema. 2. Cardiomegaly. Reviewed, dictated and finalized at location A. [employer]
--- NOTE | 2022-03-16 06:31 | PC.NURSE ---
Patient with swelling to bilateral feet 2-3+edema. States when he puts up his feet that the swelling goes away. did have dialysis on Thursday and dialysis was completed in full. is out of his blood pressure medication and wants a refill. Patient resting comfortably in his room.
--- NOTE | 2022-03-16 07:34 | ECG_ITS ---
Measurements Intervals [place] Rate: 96 P: 52 MT: 148 QRS: -38 QRSD: 86 T: 110 QT: 403 QTc: 510 Interpretive Statements SINUS RHYTHM LEFT ATRIAL ENLARGEMENT [-0.15mV P WAVE IN V1/V2] MARKED LEFT AXIS DEVIATION [QRS AXIS < -30] LEFT VENTRICULAR HYPERTROPHY AND ST-T CHANGE [VOLTAGE CRITERIA PLUS ST/T ABNORMALITY] COMPARED TO ECG 05/17/2019 14:12:31 NO SIGNIFICANT CHANGE Electronically Signed On 03-16-2022 8:42:48 [employer]AG [employer]ER by Krishna Casas M.D.
--- NOTE | 2022-03-16 07:38 | ED.SOB ---
HPI - SOB/Dyspnea General Chief Complaint: Shortness of Breath/Dyspnea Stated Complaint: BLE swelling, HTN Time Seen by Provider: 03/16/22 07:00 History of Present Illness HPI Narrative: This is a 46-year-old male past medical history of end-stage renal disease and hypertension, presenting the emergency department complaining of shortness of breath and lower extremity swelling for the last couple of days. He states he has been out of his medications but has been compliant with his dialysis (Thursday); he had 4 L removed yesterday. He denies chest pain, loss of consciousness, abdominal pain or focal weakness Related Data Home Medications Medication Instructions Recorded Confirmed calcium acetate(phosphat bind) 667 1,334 mg PO TIDWM 04/20/19 07/27/19 mg capsule carvedilol 25 mg tablet 25 mg PO BID 04/20/19 07/27/19 citalopram 20 mg tablet 20 mg PO DAILY 04/20/19 07/27/19 clonidine HCl 0.3 mg tablet 0.3 mg PO BID 04/20/19 07/27/19 hydroxyzine HCl 25 mg tablet 25 mg PO BID 04/20/19 07/27/19 nifedipine 90 mg tablet,extended 90 mg PO DAILY 07/28/19 07/28/19 release 24 hr Allergies Allergy/AdvReac Type Severity Reaction Status Date / Time shellfish derived Allergy Unknown Unknown Verified 04/28/19 17:56 shrimp Allergy Unknown Unknown Verified 04/28/19 17:56 venom-honey bee Allergy Unknown Unknown Verified 04/28/19 17:56 Cat Dander Allergy Unknown Unknown Uncoded 04/28/19 17:56 Review of Systems Review of Systems: CONSTITUTIONAL: Denies fever, chills, or sweats. EYES: Denies visual changes, redness, or discharge. ENT: Denies rhinorrhea, congestion, sore throat, or otalgia. CARDIOVASCULAR: Denies chest pain, palpitations, or edema. RESPIRATORY: Exertional dyspnea denies cough . GASTROINTESTINAL: Denies abdominal pain, nausea, vomiting, or diarrhea. GENITOURINARY: Denies dysuria or hematuria. SKIN: Denies rash or itching. MUSCULOSKELETAL: Denies back pain, joint pain, or myalgia. NEUROLOGIC: Denies headache, numbness, dizziness, or weakness. PSYCHIATRIC: Denies anxiety or depression. [facility] Past Medical History Medical History (Updated 03/16/22 @ 09:52 by Bryan Woodruff MD) Acute uremia Anemia in CKD (chronic kidney disease) Chronic anemia Related to his renal failure. Congestive heart failure Echocardiogram in September 2017 showed diastolic dysfunction with ejection fraction of 55%. Coronary artery disease With history of DC. Most recent heart catheterization was in June 2018 at [facility], requiring no intervention. Depression with anxiety Patient with major depressive disorder and generalized anxiety disorder. End-stage renal disease on hemodialysis Patient of Dr. Candelario. He has dialysis Thursday, Thursday, and Thursday. Fractures History of ankle fracture which was repaired surgically. History of noncompliance with medical treatment Hypertension Hypertensive renal disease Pericardial effusion Moderate pericardial effusion noted by echo in 2018. Reflux esophagitis With duodenitis noted on EGD 04/29/[address] Rice. Secondary hyperparathyroidism of renal origin Severe hypertension With severe concentric LVH noted on echocardiogram in 2018. Surgical History Surgical History History of ankle surgery ORIF at the age of 14. 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 Status post creation of arteriovenous fistula Left upper extremity. Family History Family History Grandparent Kidney failure Social History Social History Social History: The patient lives in [place] with his mother. He has 1 daughter. He is now working at a busy local restaurant, washing dishes. He designates his mother, Michelle Carlin, as his surrogate decision maker and he wishes to be
[2022-03-16] MEDS: cloNIDine HCL 0.1 MG TABLET 0.3 MG PO (07:55)
[2022-03-16 08:03] LABS: Basophils Percent Auto 0.3 % (0.2-1.2); Eosinophils Absolute Auto 0.1 K/mm3 (0-0.3); Eosinophils Percent Auto 1.5 % (0-4.4); Hematocrit 27.3 % (42.0-52.0); Hemoglobin 8.4 g/dL (14.0-18.0); Immature Granulocyte Absolute 0.03 K/mm3 (0.00-0.031); Immature Granulocyte Percent A 0.3 % (0-0.5); Lymphocytes Absolute Auto 1.17 K/mm3 (0.9-3.2); Lymphocytes Percent Auto 12.4 % (18.3-44.2); Mean Corpuscular HGB Conc 30.8 g/dl (32-36); Mean Corpuscular Hemoglobin 30.4 pg (26-34); Mean Corpuscular Volume 98.9 fl (80-100); Monocytes Absolute Auto 1.1 K/mm3 (0.1-0.6); Monocytes Percent Auto 12.1 % (2.6-8.5); Neutrophils Absolute Auto 6.9 K/mm3 (1.3-6.7); Neutrophils Percent Auto 73.4 % (45.5-73.1); Platelet Count Result 300 k/mm3 (150-375); Red Blood Count 2.76 M/mm3 (4.6-6.20); Red Cell Distribution Width 17.8 % (11.5-14.5); White Blood Count 9.4 K/mm3 (4.5-10.0)
[2022-03-16 08:16] LABS: Alanine Aminotransferase 10 U/L (6-50); Albumin Level 4.2 g/dL (3.5-5.1); Alkaline Phosphatase 162 U/L (38-126); Anion Gap 8 mmol/L (8-16); Aspartate Amino Transferase 18 U/L (17-59); Bilirubin,Total 0.4 mg/dL (0.2-1.3); Blood Urea Nitrogen 56 mg/dL (9-20); Calcium 7.6 mg/dL (8.4-10.2); Carbon Dioxide 33 mmol/L (22-30); Chloride 95 mmol/L (98-107); Estimated CRCL calculation 10 ml/min; Estimated Glomerular Filt Rate 8; Glucose 95 mg/dL (65-110); Potassium 4.6 mmol/L (3.4-5.0); Sodium 136 mmol/L (137-145)
[2022-03-16 08:24] LABS: NT Pro B Type Natriuretic Pept > 35000 pg/mL (5-100)
[2022-03-16] MEDS: NIFEdipine 30 MG TAB.ER.24 90 MG PO (08:26)
[2022-03-16 08:29] LABS: Troponin I 0.071 ng/mL (0.000-0.034)
[2022-03-16 09:20] LABS: Influenza A QL RT-PCR Negative (Negative); Influenza B QL RT-PCR Negative (Negative); SARS-CoV-2 RNA PCR Negative
[2022-03-16] MEDS: FUROSEMIDE INJ 40 MG/4 ML VIAL IV PUSH (10:09)
--- NOTE | 2022-03-16 10:10 | PC.NURSE ---
Pt sleeping at this time and O2 continues to drop. Pt 85% on RA. Pt placed on 2 L of O2
[2022-03-16] MEDS: hydrALAZINE HCL 50 MG TABLET 100 MG PO (11:51)
--- NOTE | 2022-03-16 15:19 | PM.IMHP ---
H&P: HPI History of Present Illness Date/Time: 03/16/22 15:19 Chief Complaint: shortness of breath on exertion Narrative: Patient is a 46-year-old male who was seen in the emergency room for shortness of breath. Patient history of end-stage renal disease on chronic dialysis however was dialysis yesterday 4 L of fluid were taken out. Paper patient came to the hospital complaining of some shortness of breath and difficulty ambulating also noticed some swelling in his legs. The patient has been noncompliant as medications. States he ran off the pills and did not take them. When seen in the emergency room patient appears comfortable no chest pain no shortness of breath no orthopnea no dizziness no palpitation no abdominal pain no urgency or frequency of urination Review of Systems Review of Systems: CONSTITUTIONAL: Denies fever, chills, or sweats. EYES: Denies visual changes, redness, or discharge. ENT: Denies rhinorrhea, congestion, sore throat, or otalgia. CARDIOVASCULAR: Denies chest pain, palpitations, or edema. RESPIRATORY: Exertional dyspnea denies cough . GASTROINTESTINAL: Denies abdominal pain, nausea, vomiting, or diarrhea. GENITOURINARY: Denies dysuria or hematuria. SKIN: Denies rash or itching. MUSCULOSKELETAL: Denies back pain, joint pain, or myalgia. NEUROLOGIC: Denies headache, numbness, dizziness, or weakness. PSYCHIATRIC: Denies anxiety or depression. [facility] Past Medical History Medical History (Updated 03/16/22 @ 10:19 by Tres Hanson MD) Acute uremia Anemia in CKD (chronic kidney disease) Chronic anemia Related to his renal failure. Congestive heart failure Echocardiogram in September 2017 showed diastolic dysfunction with ejection fraction of 55%. Coronary artery disease With history of [place]. Most recent heart catheterization was in June 2018 at [facility], requiring no intervention. Depression with anxiety Patient with major depressive disorder and generalized anxiety disorder. End-stage renal disease on hemodialysis Patient of Dr. Candelario. He has dialysis Thursday, Thursday, and Thursday. Fractures History of ankle fracture which was repaired surgically. History of noncompliance with medical treatment Hypertension Hypertensive renal disease Pericardial effusion Moderate pericardial effusion noted by echo in 2018. Reflux esophagitis With duodenitis noted on EGD 04/29/[address] Rice. Secondary hyperparathyroidism of renal origin Severe hypertension With severe concentric LVH noted on echocardiogram in 2018. Volume overload Surgical History Surgical History History of ankle surgery ORIF at the age of 14. 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 Status post creation of arteriovenous fistula Left upper extremity. Family History Family History Grandparent Kidney failure Social History Social History Social History: The patient lives in [place] with his mother. He has 1 daughter. He is now working at a busy local restaurant, washing dishes. He designates his mother, Michelle Carlin, as his surrogate decision maker and he wishes to be a full code. He is a former smoker and quit in 2011. He denies alcohol and drug use. Smoking status: Former smoker Second hand tobacco smoke exposure: No Alcohol intake: unknown Substance use: unknown Gender identity (if verbalized by the patient): Male Spiritual care concerns: No Agree to blood products: Yes Meds Home Medications and Allergies Home Medications Medication Instructions Recorded Confirmed Type calcium acetate(phosphat bind) 667 1,334 mg PO TIDWM 04/20/19 07/27/19 History mg capsule carvedilol 25 mg tablet 25 mg PO BID 04/20/19 07/27/19 History citalopram 20 mg tablet 2
[2022-03-16] MEDS: CALCIUM ACETATE 667 MG TABLET 1334 MG PO (16:37)
[2022-03-16 17:42] LABS: Alanine Aminotransferase 10 U/L (6-50); Albumin Level 4.1 g/dL (3.5-5.1); Alkaline Phosphatase 148 U/L (38-126); Anion Gap 11 mmol/L (8-16); Aspartate Amino Transferase 19 U/L (17-59); Bilirubin,Total 0.5 mg/dL (0.2-1.3); Blood Urea Nitrogen 64 mg/dL (9-20); Carbon Dioxide 30 mmol/L (22-30); Chloride 94 mmol/L (98-107); Estimated CRCL calculation 9 ml/min; Estimated Glomerular Filt Rate 8; Glucose 103 mg/dL (65-110); Potassium 4.7 mmol/L (3.4-5.0); Sodium 135 mmol/L (137-145)
[2022-03-16] MEDS: cloNIDine HCL 0.1 MG TABLET PO (20:47)
[2022-03-16] MEDS: HEPARIN SODIUM 5,000 UNITS/ML VIAL 5000 UNITS SUB-Q (20:47)
[2022-03-16] MEDS: carvediloL 25 MG TABLET PO (20:48)
--- NOTE | 2022-03-16 20:54 | PC.NURSE ---
Pt not wearing oxygen for past 30 minutes SPO2 96-100% Eun ALVARADO notified
[2022-03-17] VITALS (32 sets, daily range): BP systolic 148–228; BP diastolic 87–142; PULSE 83–99; RESP 12–24; TEMP 35.2–36.9; O2SAT 94–99; BMI 22.6
--- NOTE | 2022-03-17 00:12 | PC.NURSE ---
moved from room 2 to room 1
--- NOTE | 2022-03-17 01:10 | PC.NURSE ---
pt continues to request ham sandwich and chips. Pt had ham sandwich, OJ and maori ice at 2100. Informed pt he is on a renal diet and gave him jello at this time
--- NOTE | 2022-03-17 03:28 | PC.NURSE ---
Assumed care of pt at this time .
[2022-03-17] MEDS: METOPROLOL TARTRATE INJ 5 MG/5 ML VIAL IV PUSH (03:57)
--- NOTE | 2022-03-17 04:10 | PC.NURSE ---
Medication list could not be fully completed due to pt not knowing dosages of medications prescribed. Pt does know some names of prescribed medications and those are unconfirmed in medication list.
--- NOTE | 2022-03-17 05:15 | PC.NURSE ---
This RN attempted morning lab draw x1, no success. Phlebotomy called.
[2022-03-17] MEDS: hydrALAZINE HCL 50 MG TABLET 100 MG PO ×3 (06:22→22:38)
--- NOTE | 2022-03-17 07:12 | PC.NURSE ---
ordered pt renal breakfast tray.
--- NOTE | 2022-03-17 08:08 | PC.NURSE ---
pt to Dialysis at this time.
[2022-03-17 08:55] LABS: Basophils Absolute Auto 0.1 K/mm3 (0.0-0.1); Basophils Percent Auto 0.6 % (0.2-1.2); Eosinophils Absolute Auto 0.1 K/mm3 (0-0.3); Eosinophils Percent Auto 1.4 % (0-4.4); Hematocrit 27.7 % (42.0-52.0); Hemoglobin 8.6 g/dL (14.0-18.0); Immature Granulocyte Absolute 0.05 K/mm3 (0.00-0.031); Immature Granulocyte Percent A 0.5 % (0-0.5); Lymphocytes Absolute Auto 0.98 K/mm3 (0.9-3.2); Lymphocytes Percent Auto 9.8 % (18.3-44.2); Mean Corpuscular Hemoglobin 30.6 pg (26-34); Mean Corpuscular Volume 98.6 fl (80-100); Mean Platelet Volume 10.5 fl (7.4-10.4); Monocytes Percent Auto 9.8 % (2.6-8.5); Neutrophils Absolute Auto 7.8 K/mm3 (1.3-6.7); Neutrophils Percent Auto 77.9 % (45.5-73.1); Platelet Count Result 320 k/mm3 (150-375); Red Blood Count 2.81 M/mm3 (4.6-6.20); Red Cell Distribution Width 17.4 % (11.5-14.5)
[2022-03-17 09:00] LABS: Albumin Level 4.1 g/dL (3.5-5.1); Anion Gap 11 mmol/L (8-16); Anion Gap 14 mmol/L (8-16); Blood Urea Nitrogen 79 mg/dL (9-20); Calcium 8.6 mg/dL (8.4-10.2); Carbon Dioxide 31 mmol/L (22-30); Carbon Dioxide 32 mmol/L (22-30); Chloride 92 mmol/L (98-107); Chloride 94 mmol/L (98-107); Estimated CRCL calculation 8 ml/min; Estimated Glomerular Filt Rate 7; Glucose 131 mg/dL (65-110); Glucose 134 mg/dL (65-110); Potassium 5.1 mmol/L (3.4-5.0); Sodium 135 mmol/L (137-145); Sodium 139 mmol/L (137-145)
[2022-03-17 09:01] LABS: Alanine Aminotransferase 13 U/L (6-50); Alkaline Phosphatase 145 U/L (38-126); Aspartate Amino Transferase 21 U/L (17-59); Bilirubin,Total 0.5 mg/dL (0.2-1.3); Calcium 8.4 mg/dL (8.4-10.2)
--- NOTE | 2022-03-17 09:24 | PC.NURSE ---
pt still in dialysis at this time.
[2022-03-17 09:53] LABS: Hepatitis B Surface Antigen Negative (Negative)
[2022-03-17] MEDS: CALCIUM ACETATE 667 MG TABLET 1334 MG PO ×3 (10:00→17:05)
[2022-03-17] MEDS: NIFEdipine 30 MG TAB.ER.24 90 MG PO (10:00)
[2022-03-17] MEDS: carvediloL 25 MG TABLET PO ×2 (10:00→20:37)
--- NOTE | 2022-03-17 10:09 | PC.NURSE ---
radar operator notified this RN of pt's BP of 240's/120's. administered pt's Phoslo, Coreg, and Procardia XL in Dialysis room.
[2022-03-17 10:11] LABS: Hepatitis B Surface Anti Res Negative
[2022-03-17] MEDS: SODIUM CHLORIDE 0.9% IV 1,000 ML 999 ML IV CONT (10:57)
--- NOTE | 2022-03-17 11:15 | PM.PNNEP ---
Progress Note: A&P Assessment and Plan (1) End stage renal disease: Code(s): N18.6 - End stage renal disease Status: Chronic Assessment and Plan: plan HD tomorrow and continue T/T/S outpatient dialysis schedule follows with Dr[facility] Candelario at [facility] follow electrolytes, volume status, and clearance (2) Volume overload: Code(s): E87.70 - Fluid overload, unspecified Status: Acute Assessment and Plan: as evidence by CXR and symptoms on presentation unable to get down to dry weight on last dialysis session DUF today for fluid removal (3) Uncontrolled hypertension: Code(s): I10 - Essential (primary) hypertension Status: Chronic Assessment and Plan: difficult to control at baseline suspect a component of rebound HTN (since he missed his clonidine) resume home BP medications fluid removal today may help to some degree (4) Anemia in CKD (chronic kidney disease): Qualifiers: Chronic kidney disease stage: on chronic dialysis Qualified Code(s): N18.6 - End stage renal disease; D63.1 - Anemia in chronic kidney disease; Z99.2 - Dependence on renal dialysis Code(s): N18.9 - Chronic kidney disease, unspecified; D63.1 - Anemia in chronic kidney disease Status: Chronic Assessment and Plan: due to ESRD status Epogen with HD tomorrow (assuming BP better controlled) follow H/H (5) CHF exacerbation: Code(s): I50.9 - Heart failure, unspecified Status: Acute Assessment and Plan: suspect more an issue with volume overload that CHF fluid removal as tolerated with HD and DUF Will continue to follow. Subjective Date/time seen: 03/17/22 11:15 Chart reviewed -- assuming care from Dr. Hanson; tolerated dry ultrafiltration at the time of my visit (seen on DUF at ~ 11:00AM); BP remains elevated but breathing/respiratory status seems to be doing better; no acute distress noted. Exam Narrative: General: WD/WN AA male in NAD Heart: normal S1 and S2; no rub Lungs: clear anteriorly; coarse at bases Abdomen: soft, nontender, nondistended, positive bowel sounds Extremities: no cyanosis or clubbing; trace edema Skin: warm and dry Objective Data Vital Signs Vital Signs: Vital Signs Temp Pulse Resp BP Pulse Ox O2 Del Method 03/17/22 11:10 84 223/136 H 03/17/22 10:50 85 211/131 H 03/17/22 10:30 88 202/108 H 03/17/22 10:10 93 216/129 H 03/17/22 09:50 93 228/142 H 03/17/22 09:30 88 200/131 H 03/17/22 09:10 90 190/125 H 03/17/22 08:50 89 204/122 H 03/17/22 08:26 88 197/123 H 03/17/22 08:15 98.1 F 91 16 207/129 H 03/17/22 07:18 90 12 185/119 H 97 03/17/22 04:29 185/116 H 03/17/22 03:57 90 03/17/22 03:39 94 Room Air 03/17/22 03:33 91 19 193/125 H 94 03/17/22 00:15 93 18 03/17/22 00:09 93 14 178/108 H 97 03/16/22 22:15 95 16 96 03/16/22 22:07 94 16 96 03/16/22 20:46 98.0 F 93 18 100 03/16/22 20:32 94 18 178/100 H 96 03/16/22 20:30 95 18 95 03/16/22 20:27 98 14 96 03/16/22 16:48 91 18 03/16/22 16:36 95 20 158/116 H 03/16/22 16:35 97 13 03/16/22 20:48 94 03/16/22 16:36 96 15 158/116 H 100 Meds/Results Medications: Active Medications Generic Name Dose Route Start Last Admin Trade Name Freq PRN Reason Stop Dose Admin Acetaminophen 650 mg 03/16/22 15:29 Acetaminophen 325 Mg Tablet PO Q4H PRN Mild Pain (1-3) or Fever Bisacodyl 10 mg 03/16/22 15:29 Bisacodyl 10 Mg Suppository RECTAL ONCE PRN Constipation Calcium Acetate 1,334 mg 03/17/22 09:00 Calcium Acetate 667 Mg Tablet PO TID [place] Carvedilol 25 mg 03/16/22 21:00 03/16/22 20:48 Carvedilol 25 Mg Tablet PO 25 mg Q12HR [place] Administration Clonidine HCl 0.3 mg 03/17/22 04:10 Clonidine Hcl 0.1 Mg T
--- NOTE | 2022-03-17 12:19 | PC.NURSE ---
pt back from dialysis. lunch tray ordered.
[2022-03-17] MEDS: hydrALAZINE HCL 20 MG/ML VIAL 10 MG IV PUSH ×2 (12:20→19:01)
[2022-03-17] MEDS: HEPARIN SODIUM 5,000 UNITS/ML VIAL 5000 UNITS SUB-Q ×2 (13:18→20:35)
[2022-03-17] MEDS: cloNIDine HCL 0.1 MG TABLET 0.3 MG PO ×2 (14:28→22:37)
--- NOTE | 2022-03-17 17:54 | PM.IMPN ---
Progress Note: A&P Assessment and Plan (1) Volume overload: Code(s): E87.70 - Fluid overload, unspecified Status: Acute (2) CHF exacerbation: Code(s): I50.9 - Heart failure, unspecified Status: Acute Assessment and Plan: Optimize Von inhibitors and beta-blockers Daily weights Consider SGLT2 inhibitors if okay with Cards Antiplatelet & Statin therapy Loop diuretics as indicate Patient educated about titrating diuretics at home based on weight blood pressure and symptoms. Optimize blood pressure < 130/80 Fall risk assessment Pneumonia and flu vaccine advised Routine follow-up with the primary care physician and mental health technician recommended (3) Hyperkalemia: Code(s): E87.5 - Hyperkalemia Status: Acute Assessment and Plan: Repeat CBC CMP (4) End stage renal disease: Code(s): N18.6 - End stage renal disease Status: Chronic Assessment and Plan: CRF on dialysis And gentle hydration. Avoid nephrotoxic drugs. Monitor antihypertensive drugs Avoid NSAIDs. Routine CMP monitor GFR. Monitor electrolytes potassium levels. Dose antibiotics depending on creatinine clearance Routine follow-up with PCP and business services representative recommended (5) Hypertensive emergency: Code(s): I16.1 - Hypertensive emergency Status: Acute Plan DVT prophylaxis. GI prophylaxis. All records reviewed Discussed plan of care with the nursing staff and with the patient in detail. Answered all questions and concerns from the patient. All labs have been reviewed. Code status updated dictation may have been done utilizing a voice recognition system. Attempts have been made to correct errors. However, there may be uncorrected grammatical, spelling, and recognition errors present. Subjective Date/time seen: 03/17/22 17:54 Interval history: still in ED no complaints Review of Systems Review of Systems: All systems reviewed & are unremarkable except as noted in HPI and below Exam Narrative: GENERAL: Well-developed, well-nourished, and in no acute distress. HEAD: Normocephalic, atraumatic. EYES: PERRLA and EOMI. ENT: Nares clear, no rhinorrhea or epistaxis. Mucous membranes moist. Oropharynx without tonsillar hypertrophy exudate or other lesions. NECK: Supple. No adenopathy or masses. No carotid bruits or JVD CHEST: Clear to auscultation. No respiratory distress. No wheezes rales or rhonchi; Clean and dry dialysis catheter noted in the left anterior chest HEART: Regular rate and rhythm. No murmur heard. Normal peripheral pulses. ABDOMEN: Soft, nontender, nondistended, normal active bowel sounds. EXTREMITIES: Normal range of motion. Trace edema of the bilateral feet. SKIN: Warm, dry, no rash. NEURO: No focal deficits. Alert and oriented x3. PSYCH: Normal mood and affect. Objective Data Vital Signs Vital Signs: Vital Signs - 24 hr 03/16/22 20:48 03/16/22 20:27 03/16/22 20:30 Temperature Pulse Rate 94 98 95 Respiratory Rate 14 18 Blood Pressure Pulse Oximetry 96 95 Oxygen Delivery 03/16/22 20:32 03/16/22 20:46 03/16/22 22:07 Temperature 36.7 C Pulse Rate 94 93 94 Respiratory Rate 18 18 16 Blood Pressure 178/100 H Pulse Oximetry 96 100 96 Oxygen Delivery 03/16/22 22:15 03/17/22 00:09 03/17/22 00:15 Temperature Pulse Rate 95 93 93 Respiratory Rate 16 14 18 Blood Pressure 178/108 H Pulse Oximetry 96 97 Oxygen Delivery 03/17/22 03:33 03/17/22 03:39 03/17/22 03:57 Temperature Pulse Rate 91 90 Respiratory Rate 19 Blood Pressure 193/125 H Pulse Oximetry 94 94 Oxygen Delivery Room Air 03/17/22 04:29 03/17/22 07:18 03/17/22 08:15 Temperature 36.7 C Pulse Rate 90 91 Respiratory Rate 12 16 Blood Pressure 185/116 H 185/119 H 207/129 H Pulse Oximetry 97 Oxygen Delivery 03/17/22 08:26 03/17/22 08:50 03/17/22 09:10 Temperature Pulse Rate 88 89 90 Respiratory Rate Blood P
--- NOTE | 2022-03-17 18:23 | ADMGEN ---
Addendum entered by Brigida Ramos RN 03/17/22 18:23: wrong time. patient arrived at 1815 Original Note: This patient, Pravin Carlin, was admitted to IMU Room 213-01. Patient/family oriented to hospital policies and general routines including ID bracelet, bed and alarms, visiting hours, pain management, procedures, bathroom and other care routines, personal items, smoking policy, room service/diet, and visiting hours. Information on how to activate the Rapid Response Team has been discussed. Patient/Family are encouraged to report perceived risks to care and to ask questions if they do not understand what they are told or what they should do.
[2022-03-17] MEDS: ACETAMINOPHEN 325 MG TABLET 650 MG PO (20:34)
[2022-03-18] VITALS (29 sets, daily range): BP systolic 133–212; BP diastolic 22–125; PULSE 80–100; RESP 16–24; TEMP 36–36.7; O2SAT 98–100; BMI 22.6
[2022-03-18] MEDS: hydrALAZINE HCL 50 MG TABLET 100 MG PO ×3 (05:17→21:20)
--- NOTE | 2022-03-18 08:36 | P.CDI_ITS ---
CDI Query Clarified Diagnosis Clarified Diagnosis: Elevated BNP on 03/16/22 lab work. Noted history of CHF. Documented edema. CHF exacerbation noted on assessment and plan. Please specify type and acuity of heart failure if known. * Acute * Chronic * Acute on Chronic * Unknown * Systolic * Diastolic * Combined Systolic and Diastolic * Unknown <Shelby Hernández RN - Last Filed: 03/18/22 08:40> ACUTE ON CHRONIC SYSTOLIC CHF Elevated BNP on 03/16/22 lab work. Noted history of CHF. Documented edema. CHF exacerbation noted on assessment and plan. Please specify type and acuity of heart failure if known. * Acute * Chronic * Acute on Chronic * Unknown * Systolic * Diastolic * Combined Systolic and Diastolic * Unknown <Konstantin Ureña MD - Last Filed: 04/14/22 15:43>
--- NOTE | 2022-03-18 08:36 | WPDCDIQUERY2 ---
CDI Query Clarified Diagnosis Clarified Diagnosis: Elevated BNP on 03/16/22 lab work. Noted history of CHF. Documented edema. CHF exacerbation noted on assessment and plan. Please specify type and acuity of heart failure if known. Acute Chronic Acute on Chronic Unknown Systolic Diastolic Combined Systolic and Diastolic Unknown <Shelby Hernández RN - Last Filed: 03/18/22 08:40> ACUTE ON CHRONIC SYSTOLIC CHF Elevated BNP on 03/16/22 lab work. Noted history of CHF. Documented edema. CHF exacerbation noted on assessment and plan. Please specify type and acuity of heart failure if known. Acute Chronic Acute on Chronic Unknown Systolic Diastolic Combined Systolic and Diastolic Unknown <Konstantin Ureña MD - Last Filed: 04/14/22 15:43>
[2022-03-18] MEDS: ACETAMINOPHEN 325 MG TABLET 650 MG PO ×3 (09:21→21:24)
[2022-03-18] MEDS: cloNIDine HCL 0.1 MG TABLET 0.3 MG PO ×3 (09:21→21:21)
[2022-03-18] MEDS: hydrALAZINE HCL 20 MG/ML VIAL 10 MG IV PUSH ×2 (09:22→16:54)
--- NOTE | 2022-03-18 10:07 | PM.IMPN ---
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 Avoid nephrotoxic drugs. Monitor antihypertensive drugs Avoid NSAIDs. Routine CMP monitor GFR. Monitor electrolytes potassium levels. Dose antibiotics depending on creatinine clearance implementation architect recommended (5) Hypertensive emergency: Code(s): I16.1 - Hypertensive emergency Status: Acute Plan DVT prophylaxis. GI prophylaxis. All records reviewed Discussed plan of care with the nursing staff and with the patient in detail. Answered all questions and concerns from the patient. All labs have been reviewed. Code status updated dictation may have been done utilizing a voice recognition system. Attempts have been made to correct errors. However, there may be uncorrected grammatical, spelling, and recognition errors present. Time Spent With Patient Time with patient: 25 - 35 minutes Subjective Date/time seen: 03/18/22 10:07 Interval history: Denies any complaints still running high blood pressures status post dialysis this morning Review of Systems Review of Systems: All systems reviewed & are unremarkable except as noted in HPI and below Exam Narrative: GENERAL: Well-developed, well-nourished, and in no acute distress. HEAD: Normocephalic, atraumatic. EYES: PERRLA and EOMI. ENT: Nares clear, no rhinorrhea or epistaxis. Mucous membranes moist. Oropharynx without tonsillar hypertrophy exudate or other lesions. NECK: Supple. No adenopathy or masses. No carotid bruits or JVD CHEST: Clear to auscultation. No respiratory distress. No wheezes rales or rhonchi; Clean and dry dialysis catheter noted in the left anterior chest HEART: Regular rate and rhythm. No murmur heard. Normal peripheral pulses. ABDOMEN: Soft, nontender, nondistended, normal active bowel sounds. EXTREMITIES: Normal range of motion. Trace edema of the bilateral feet. SKIN: Warm, dry, no rash. NEURO: No focal deficits. Alert and oriented x3. PSYCH: Normal mood and affect. Objective Data Vital Signs Vital Signs: Vital Signs - 24 hr 03/17/22 10:10 03/17/22 10:30 03/17/22 10:50 Temperature Pulse Rate 93 88 85 Respiratory Rate Blood Pressure 216/129 H 202/108 H 211/131 H Pulse Oximetry Oxygen Delivery 03/17/22 11:10 03/17/22 11:26 03/17/22 11:32 Temperature 36.4 C Pulse Rate 84 87 83 Respiratory Rate 18 Blood Pressure 223/136 H 221/141 H 221/133 H Pulse Oximetry Oxygen Delivery 03/17/22 12:19 03/17/22 13:04 03/17/22 15:11 Temperature Pulse Rate 89 92 94 Respiratory Rate 20 20 20 Blood Pressure 207/136 H 190/110 H 174/111 H Pulse Oximetry 99 98 98 Oxygen Delivery 03/17/22 16:09 03/17/22 18:00 03/17/22 18:00 Temperature Pulse Rate 90 92 95 Respiratory Rate 24 H Blood Pressure 161/120 H Pulse Oximetry 98 Oxygen Delivery 03/17/22 18:15 03/17/22 19:59 03/17/22 20:37 Temperature 36.9 C 36.9 C Pulse Rate 91 93 95 Respiratory Rate 22 H 20 Blood Pressure 175/100 H 170/100 H Pulse Oximetry 98 98 Oxygen Delivery 03/17/22 20:42 03/17/22 22:36 03/17/22 20:00 Temperature 36.7 C Pulse Rate 95 99 Respiratory Rate 20 B
--- NOTE | 2022-03-18 10:13 | PM.PNNEP ---
Progress Note: A&P Assessment and Plan (1) End stage renal disease: Code(s): N18.6 - End stage renal disease Status: Chronic Assessment and Plan: HD today and continue T/T/S outpatient dialysis schedule follows with Dr. Candelario at [facility] follow electrolytes, volume status, and clearance (2) Volume overload: Code(s): E87.70 - Fluid overload, unspecified Status: Acute Assessment and Plan: as evidence by CXR and symptoms on presentation unable to get down to dry weight on last outpatient dialysis session DUF yesterday for fluid removal further fluid removal with HD today (3) Uncontrolled hypertension: Code(s): I10 - Essential (primary) hypertension Status: Chronic Assessment and Plan: difficult to control at baseline suspect a component of rebound HTN (since he missed his clonidine) resume home BP medications fluid removal may help to some degree (4) Anemia in CKD (chronic kidney disease): Qualifiers: Chronic kidney disease stage: on chronic dialysis Qualified Code(s): N18.6 - End stage renal disease; D63.1 - Anemia in chronic kidney disease; Z99.2 - Dependence on renal dialysis Code(s): N18.9 - Chronic kidney disease, unspecified; D63.1 - Anemia in chronic kidney disease Status: Chronic Assessment and Plan: due to ESRD status Epogen with HD tomorrow (assuming BP better controlled) follow H/H (5) CHF exacerbation: Code(s): I50.9 - Heart failure, unspecified Status: Acute Assessment and Plan: suspect more an issue with volume overload that CHF fluid removal as tolerated with HD and DUF Not opposed to discharge following dialysis treatment today assuming he is medically stable. Will continue to follow. Subjective Date/time seen: 03/18/22 10:13 Tolerating hemodialysis treatment at the time of my visit (seen on HD at ~ 10:00AM); tolerated dry ultrafiltration session yesterday morning as well; BP elevated but this is a chronic issue at baseline; breathing seems to be doing better; no apparent distress noted. Exam Narrative: General: WD/WN AA male in NAD Heart: normal S1 and S2; no rub Lungs: clear anteriorly; coarse at bases Abdomen: soft, nontender, nondistended, positive bowel sounds Extremities: no cyanosis or clubbing; trace edema Skin: warm and intact Objective Data Vital Signs Vital Signs: Vital Signs Temp Pulse Resp BP Pulse Ox O2 Del Method 03/18/22 08:51 97.8 F 86 18 176/114 H 03/18/22 08:00 97.9 F 89 24 H 182/117 H 99 03/18/22 08:00 97.9 F 89 24 H 182/117 H 99 03/18/22 06:00 92 03/18/22 04:00 97.9 F 92 20 179/109 H 99 03/18/22 04:00 95 03/18/22 04:00 94 Room Air 03/18/22 02:00 96 03/18/22 00:00 90 03/18/22 00:00 90 03/17/22 22:00 95 03/17/22 20:00 99 03/17/22 22:36 98.0 F 95 20 159/108 H 97 03/17/22 20:42 148/87 H 03/17/22 20:37 95 03/17/22 19:59 98.4 F 93 20 170/100 H 98 03/17/22 18:15 98.4 F 91 22 H 175/100 H 98 03/17/22 18:00 95 03/17/22 18:00 92 03/17/22 16:09 90 24 H 161/120 H 98 03/17/22 15:11 94 20 174/111 H 98 03/17/22 13:04 92 20 190/110 H 98 03/17/22 12:19 89 20 207/136 H 99 03/17/22 11:32 97.6 F 83 18 221/133 H 03/17/22 11:26 87 221/141 H 03/17/22 11:10 84 223/136 H 03/17/22 10:50 85 211/131 H 03/17/22 10:30 88 202/108 H Intake/Output Intake/Output: Intake & Output 03/15/22 03/16/22 03/17/22 03/18/22 23:59 23:59 23:59 23:59 Intake Total 1320 412 Output Total 4000 Balance -2680 412 Meds/Results Medications: Active Medications Generic Name Dose Route Start Last Admin Trade Name Freq PRN Reason Stop Dose Admin Acetaminophen 650 mg 03/16/22 15:29 03/18/22 09:21 Acetaminophen 325 Mg Tablet PO 650 mg Q4H PRN A
[2022-03-18] MEDS: SODIUM CHLORIDE 0.9% IV 1,000 ML 999 ML IV CONT (11:30)
[2022-03-18] MEDS: CALCIUM ACETATE 667 MG TABLET 1334 MG PO ×2 (11:50→16:54)
[2022-03-18] MEDS: HEPARIN SODIUM 5,000 UNITS/ML VIAL 5000 UNITS SUB-Q ×2 (11:50→21:19)
[2022-03-18] MEDS: carvediloL 25 MG TABLET PO ×2 (11:50→21:20)
[2022-03-18] MEDS: NIFEdipine 30 MG TAB.ER.24 90 MG PO (11:51)
[2022-03-18] MEDS: lisinopriL 20 MG TABLET 40 MG PO (18:20)
[2022-03-19] VITALS (12 sets, daily range): BP systolic 135–187; BP diastolic 91–116; PULSE 77–97; RESP 16–20; TEMP 36.3–36.7; O2SAT 97–100
[2022-03-19 05:34] LABS: Hematocrit 29.7 % (42.0-52.0); Hemoglobin 9.2 g/dL (14.0-18.0); Mean Corpuscular Hemoglobin 29.5 pg (26-34); Mean Corpuscular Volume 95.2 fl (80-100); Mean Platelet Volume 10.4 fl (7.4-10.4); Platelet Count Result 349 k/mm3 (150-375); Red Blood Count 3.12 M/mm3 (4.6-6.20); Red Cell Distribution Width 17.5 % (11.5-14.5); White Blood Count 5.9 K/mm3 (4.5-10.0)
[2022-03-19] MEDS: cloNIDine HCL 0.1 MG TABLET 0.3 MG PO ×2 (05:41→14:36)
[2022-03-19] MEDS: hydrALAZINE HCL 50 MG TABLET 100 MG PO ×2 (05:42→14:36)
[2022-03-19 06:09] LABS: Anion Gap 11 mmol/L (8-16); Blood Urea Nitrogen 68 mg/dL (9-20); Calcium 9.2 mg/dL (8.4-10.2); Carbon Dioxide 29 mmol/L (22-30); Chloride 93 mmol/L (98-107); Estimated CRCL calculation 9 ml/min; Estimated Glomerular Filt Rate 8; Glucose 99 mg/dL (65-110); Potassium 5.3 mmol/L (3.4-5.0); Sodium 133 mmol/L (137-145)
[2022-03-19] MEDS: NIFEdipine 30 MG TAB.ER.24 90 MG PO (08:21)
[2022-03-19] MEDS: lisinopriL 20 MG TABLET 40 MG PO (08:21)
[2022-03-19] MEDS: HEPARIN SODIUM 5,000 UNITS/ML VIAL 5000 UNITS SUB-Q (08:22)
[2022-03-19] MEDS: carvediloL 25 MG TABLET PO (08:22)
[2022-03-19] MEDS: CALCIUM ACETATE 667 MG TABLET 1334 MG PO ×2 (08:22→12:02)
[2022-03-19] MEDS: SODIUM POLYSTYRENE SULFONONATE 15 GM/60 ML BTL 30 GM PO (11:50)
[2022-03-19] MEDS: DEXTROSE 50% 25 GM/50 ML SYRINGE IV PUSH (11:52)
[2022-03-19] MEDS: INSULIN HUMAN REGULAR (*BKC) 100 UNITS/ML 10 UNITS IV PUSH (11:52)
[2022-03-19] MEDS: hydrALAZINE HCL 20 MG/ML VIAL 10 MG IV PUSH (12:00)
--- NOTE | 2022-03-19 15:08 | PM.DS ---
DS: Admitting Diagnosis Discharge Date 03/19/2022 Admitting Diagnosis Volume Overload DS: Discharge Diagnosis Discharge Diagnosis (1) Volume overload: Code(s): E87.70 - Fluid overload, unspecified Status: Acute Assessment and Plan: Patient initially presented with shortness of breath and was found to have volume overload. Patient had dialysis on 03/17 and 03/18 and no reports on chest pain, shorntess of breath or palpitations. This volume overload may have been precipitated by the patient being out of his medications. Patient will be discharged to home with plan to have outpatient hemodialysis tomorrow. (2) CHF exacerbation: Code(s): I50.9 - Heart failure, unspecified Status: Acute Assessment and Plan: Continue carvedilol 25 mg BID, lisinopril 40 mg po daily. Will give prescription for all antihypertensive medications for discharge. Discussed with patient that in order to prevent being out of refills, he will need to follow up with his physician regularly and call the office if he is unable to get refills instead of relying on [facility] to call the physician office for him. (3) Hyperkalemia: Code(s): E87.5 - Hyperkalemia Status: Acute Assessment and Plan: Potassium up to 5.3 this morning. Gave insulin, D50, albuterol and Kayexalate. Repeat potassium 5.0. Resolved. (4) End stage renal disease: Code(s): N18.6 - End stage renal disease Status: Chronic Assessment and Plan: Appreciate recommendations from Nephrology. Had dialysis on 03/17 and 03/18. Planned to have outpatient hemodialysis on 03/20. (5) Hypertensive emergency: Code(s): I16.1 - Hypertensive emergency Status: Acute Assessment and Plan: This was due to the patient being out of his medications. He will be given prescriptions for his antihypertensive medications for discharge. This has resolve as the patient no longer has chest pain or shortness of breath. DS: Summary Hospital Course Reason for hospitalization: Volume Overload Hospital Course: 46M with a past medical history of hypertension, secondary hyperparathyroidism, end stage renal disease on hemodialysis, anemia who presented to [facility] as a transfer after presenting to outside facility emergency department with shortness of breath and lower extremity swelling. Nephrology was consulted. Chest xray showed mild pulmonary edema and Nephrology noted the patient to be above his dry weight. Also the patient reported having been out of his medications, so he also had hypertensive urgency. Patient had dialysis on two consecutive days. His hyperkalemia was also treated. On the day of discharge, the patient denied chest pain, shortness of breath, palpitations, difficulty breathing. He requested prescriptions for all of his medications saying he had been out of all of his medications prior to admission. Patient discharge to home with prescriptions for his medications and advised to follow up with his primary care physician within a week. Time Spent with Patient Time attestation: Total time spent providing and/or coordinating discharge services: Exam Narrative: GENERAL: NAD, cooperative HEENT: Normocephalic, atraumatic, anicteric, tattoos to face NECK: Supple CV: Normal S1, S2, RRR, 2/6 murmur. RESP: CTAB, Normal work of breathing. EXTREMITIES: Warm and well perfused, no clubbing, cyanosis, or edema. SKIN: warm, dry and intact. Multiple tattoos NEURO: CN 2-12 grossly intact. DS: Data Data Completed and Pending Labs on day of discharge: Labs from last 24 hours 03/19/22 03/19/22 03/19/22 13:05 04:52 04:52 WBC 5.9 RBC 3.12 L Hgb 9.2 L Hct 29.7 L MCV 95.2 MCH 29.5 MCHC 31.0 L RDW 17.5 H Plt Count 349 MPV 10.4 Sodium 133 L Potassium 5.0 5.3 H Chloride 93 L Carbon Dioxide 29 Anion Gap 11 BUN 68 H D Creatinine 8.9
[2022-03-19] MEDS: ALBUTEROL SULFATE NEB 2.5 MG/3 ML INH 5 MG INHALATION (15:26)
== END 2022-03-19 16:30 | disposition home or self-care (01) | DRG 640 ==
LOC: ANHED 09:52 → ANHIMU 11:45
PROVIDERS: Internal Medicine Nephrology; Admitting Provider Internal Medicine; Emergency Provider Preventive Medicine Aerospace Medicine; Visit Provider Family Medicine
DX: E87.70 Fluid overload, unspecified (principal); I50.43 Acute on chronic combined systolic (congestive) and diastolic (congestive) heart failure; N18.6 End stage renal disease; I13.2 Hypertensive heart and chronic kidney disease with heart failure and with stage 5 chronic kidney disease, or end stage renal disease; N25.81 Secondary hyperparathyroidism of renal origin; E87.5 Hyperkalemia; I25.10 Atherosclerotic heart disease of native coronary artery without angina pectoris; I16.0 Hypertensive urgency; D63.1 Anemia in chronic kidney disease; K21.9 Gastro-esophageal reflux disease without esophagitis; F32.9 Major depressive disorder, single episode, unspecified; F41.1 Generalized anxiety disorder; Z20.822 Contact with and (suspected) exposure to COVID-19; Z99.2 Dependence on renal dialysis; Z87.891 Personal history of nicotine dependence; Z91.14 Patient's other noncompliance with medication regimen
CPT/HCPCS: 36415; 71046; 80048; 80053; 80069; 83880; 84132; 84484; 85025; 85027; 86706; 87340; 87636; 93005; 94640; 96374; 99285; A9270; G0257; G0378; J0360; J1644; J1815; J1940; J7030

== ENCOUNTER 2023-05-17 09:02 | Observation (INO) | payer MEDICARE, MEDICAID, SELFPAY ==
[2023-05-17] VITALS (7 sets, daily range): BP systolic 116–138; BP diastolic 67–91; PULSE 75–88; RESP 16–21; TEMP 36.4–36.7; O2SAT 96–100; BMI 22.7
--- NOTE | ~2023-05-17 | XR_ITS ---
EXAMINATION: XR chest 2V DATE: 05/17/2023 09:34 INDICATION: Shortness of breath. TECHNIQUE: Frontal and lateral views of the chest were obtained. COMPARISON: Chest 2 views 03/16/2022 FINDINGS: There is no pneumonia, pleural effusion, or pneumothorax. Cardiomegaly syndrome. There is a left internal jugular central venous catheter with tip in proximal right atrium. IMPRESSION: 1. Cardiomegaly. Reviewed, dictated and finalized at location A. [facility] SELECTOR IMPRESSION: 1. Cardiomegaly.
--- NOTE | 2023-05-17 09:08 | ECG_ITS ---
Measurements Intervals [place] Rate: 80 P: NC: 0 QRS: -34 QRSD: 86 T: 137 QT: 398 QTc: 462 Interpretive Statements NORMAL SINUS RHYTHM ARTIFACT LIMITS INTERPRETATION LEFT AXIS DEVIATION [QRS AXIS < -30] LEFT VENTRICULAR HYPERTROPHY AND ST-T CHANGE [VOLTAGE CRITERIA PLUS ST/T ABNORMALITY] ABNORMAL ECG NO PREVIOUS ECG AVAILABLE FOR COMPARISON Electronically Signed On 05-17-2023 10:31:55 REDUCING MACHINE OPERATOR by Geoff Miller M.D.
--- NOTE | 2023-05-17 09:17 | ED.SOB ---
HPI - SOB/Dyspnea General Chief Complaint: Shortness of Breath/Dyspnea <Tyra Dc PA-C - Last Filed: 05/17/23 11:37> Stated Complaint: MISSED DIALYSIS FEELS SOB <Tyra Dc PA-C - Last Filed: 05/17/23 11:37> Time Seen by Provider: 05/17/23 09:04 <Tyra Dc PA-C - Last Filed: 05/17/23 11:37> Source: patient <ERIC Mathews Last Filed: 05/17/23 11:37> Mode of arrival: EMS <ERIC Mathews Last Filed: 05/17/23 11:37> Limitations: no limitations <Tyra Dc PA-C - Last Filed: 05/17/23 11:37> History of Present Illness HPI Narrative: This is a 47 year old male that presents to the ER for shortness of breath. Reports he does Dialysis Thursday, , Thursday. His executive assistant is Dr. Candelario. He missed dialysis yesterday because his ride did not come. He was feeling short of breath today which prompted him to call an ambulance. Denies fever, cough, chest pain, or lower extremity edema. <Tyra Dc PA-C - Last Filed: 05/17/23 11:37> Related Data Home Medications: Home Medications Medication Instructions Recorded Confirmed carvedilol 25 mg tablet 25 mg PO BID 05/17/23 05/17/23 cholecalciferol (vitamin D3) 1,250 1,250 mcg PO WEEKLY 05/17/23 05/17/23 mcg (50,000 unit) capsule citalopram 20 mg tablet 20 mg PO DAILY 05/17/23 05/17/23 clonidine HCl 0.3 mg tablet 0.3 mg PO TID 05/17/23 05/17/23 hydralazine 100 mg tablet 100 mg PO TID 05/17/23 05/17/23 hydroxyzine HCl 25 mg tablet 25 mg PO BID PRN Itching 05/17/23 05/17/23 lisinopril 40 mg tablet 40 mg PO DAILY 05/17/23 05/17/23 megestrol 40 mg tablet 40 mg PO DAILY 05/17/23 05/17/23 nifedipine 90 mg tablet,extended 90 mg PO DAILY 05/17/23 05/17/23 release pantoprazole 40 mg tablet,delayed 40 mg PO DAILY 05/17/23 05/17/23 release sevelamer carbonate 800 mg tablet 800 mg PO TID 05/17/23 05/17/23 <Tyra Dc PA-C - Last Filed: 05/17/23 11:37> Allergies/Adverse Reactions: Allergies Allergy/AdvReac Type Severity Reaction Status Date / Time No Known Allergies Allergy Verified 05/17/23 09:12 <Tyra Dc PA-C - Last Filed: 05/17/23 11:37> Review of Systems Review of Systems: CONSTITUTIONAL: Denies fever CARDIOVASCULAR: Denies chest pain, or edema. RESPIRATORY: Reports dyspnea. Denies cough <Tyra Dc PA-C - Last Filed: 05/17/23 11:37> All systems reviewed & are unremarkable except as noted in HPI and below <Tyra Dc PA-C - Last Filed: 05/17/23 11:37> PMFSH Past Medical History Medical History: Medical History (Updated 05/17/23 @ 11:37 by Tyra Dc PA-C) History of end stage renal disease <Tyra Dc PA-C - Last Filed: 05/17/23 11:37> Social History Social History: Social History (Updated 05/17/23 @ 09:23 by Tyra Dc PA-C) Smoking status: Never smoker Alcohol intake: never Substance use: never Do You Feel Safe in your Home?: Yes Lack of Transportation: YES Lack of Food: Sometimes True Current Housing: I Have Housing Concerned About Future Housing: YES Difficulty Paying Gas/Electric Bills: YES Difficulty Paying for Meds: No Currently Unemployed: YES Education: Decline to Answer Difficulty w/ Childcare or Family Care: No Spiritual care concerns: No <Tyra Dc PA-C - Last Filed: 05/17/23 11:37> Exam Narrative: GENERAL: Well-appearing, well-nourished, and in no acute distress. HEAD: Normocephalic, atraumatic. EYES: EOMI. CHEST: Clear to auscultation. No respiratory distress. No wheezes rales or rhonchi HEART: Regular rate and rhythm. No murmur heard. Normal peripheral pulses. EXTREMITIES: Normal range of motion. No edema. SKIN: Warm, dry, no rash. NEURO: No focal deficits. Alert and oriented x3. PSYCH: Normal mood and affect <Tyra Dc PA-C - Last Filed: 05/17/23 11:37> Course Course Emergency Course: Patient updated on his workup an
[2023-05-17 09:21] LABS: Basophils Percent Auto 0.4 % (0.2-1.2); Eosinophils Absolute Auto 0.2 K/mm3 (0-0.3); Eosinophils Percent Auto 1.9 % (0-4.4); Hematocrit 31.2 % (42.0-52.0); Hemoglobin 9.6 g/dL (14.0-18.0); Immature Granulocyte Absolute 0.02 K/mm3 (0.00-0.031); Immature Granulocyte Percent A 0.2 % (0-0.5); Lymphocytes Absolute Auto 0.95 K/mm3 (0.9-3.2); Lymphocytes Percent Auto 10.1 % (18.3-44.2); Mean Corpuscular HGB Conc 30.8 g/dl (32-36); Mean Corpuscular Hemoglobin 29.4 pg (26-34); Mean Corpuscular Volume 95.4 fl (80-100); Mean Platelet Volume 10.4 fl (7.4-10.4); Monocytes Absolute Auto 0.8 K/mm3 (0.1-0.6); Monocytes Percent Auto 8.4 % (2.6-8.5); Neutrophils Absolute Auto 7.4 K/mm3 (1.3-6.7); Platelet Count Result 299 k/mm3 (150-375); Red Blood Count 3.27 M/mm3 (4.6-6.20); Red Cell Distribution Width 16.9 % (11.5-14.5); White Blood Count 9.4 K/mm3 (4.5-10.0)
[2023-05-17 10:18] LABS: Alanine Aminotransferase 8 U/L (6-50); Albumin Level 3.6 g/dL (3.5-5.1); Alkaline Phosphatase 131 U/L (38-126); Anion Gap 11 mmol/L (8-16); Aspartate Amino Transferase 18 U/L (17-59); Bilirubin,Total 0.5 mg/dL (0.2-1.3); Blood Urea Nitrogen 84 mg/dL (9-20); Calcium 9.1 mg/dL (8.4-10.2); Carbon Dioxide 28 mmol/L (22-30); Chloride 96 mmol/L (98-107); Estimated CRCL calculation 5 ml/min; Estimated Glomerular Filt Rate 4; Glucose 107 mg/dL (65-110); Potassium 5.1 mmol/L (3.4-5.0); Sodium 135 mmol/L (137-145)
--- NOTE | 2023-05-17 11:06 | PC.NURSE ---
lunch tray ordered at this time
--- NOTE | 2023-05-17 12:45 | ADMGEN ---
This patient, Pravin Carlin, was admitted to [facility] Surg Room 322-01 @ 1245. Patient/family oriented to hospital policies and general routines including ID bracelet, bed and alarms, visiting hours, pain management, procedures, bathroom and other care routines, personal items, smoking policy, room service/diet, and visiting hours. Information on how to activate the Rapid Response Team has been discussed. Patient/Family are encouraged to report perceived risks to care and to ask questions if they do not understand what they are told or what they should do.
--- NOTE | 2023-05-17 13:10 | PM.CNNEP ---
Assessment and Plan Assessment and plan (1) End stage renal disease: Code(s): N18.6 - End stage renal disease Status: Chronic Assessment and Plan: HD tomorrow resume/transiton back to T/T/S outpatient dialysis schedule next week follows with Dr. Candelario at [facility] follow electrolytes, volume status, and clearance (2) Shortness of breath: Code(s): R06.02 - Shortness of breath Status: Acute Assessment and Plan: presenting complaint to ER etiology not clear... no respiratory distress no hypoxia noted CXR clear stable BP no chest pain follow symptomatically (3) Hyperkalemia: Code(s): E87.5 - Hyperkalemia Status: Acute Assessment and Plan: mild at this time no need for medical management should correct with dialysis (4) Hypertension: Code(s): I10 - Essential (primary) hypertension Status: Chronic Assessment and Plan: reasonable control at this time follow trend of hemodynamics (5) Anemia: Code(s): D64.9 - Anemia, unspecified Status: Chronic Assessment and Plan: due to ESRD Epogen with HD follow trend of H/H I would not be opposed to discharge after his dialysis treatment tomorrow if he is otherwise medically stable. I will continue to follow the patient with you while he remains hospitalized to make further recommendations as deemed necessary. Thank you for allowing me to participate in the care of this patient. History of Present Illness Reason for Consult Consult date: 05/17/23 Reason for consult: end stage renal disease Chief Complaint Chief complaint: ESRD on Dialysis,Hyperkalemia History of Present Illness Narrative: THIS PATIENT HAS ANOTHER MEDICAL CHART. THE MEDICAL RECORD NUMBER OF HIS OTHER CHART IS . The patient is a 47-year-old male with a past medical history as outlined below who presented to [facility] Emergency room earlier today with complaints of shortness of breath. The patient apparently missed his regularly scheduled dialysis treatment yesterday as his transportation did not show to take him to his outpatient dialysis center. He apparently woke up this morning with complaints of shortness of breath that did not seem to improve with conservative therapy. He called EMS was subsequently transported him to the emergency room for further assessment. Workup and evaluation emergency room demonstrated the patient to be hemodynamically stable. despite his complaints of shortness of breath, he did not appear to be in any respiratory distress and had no evidence of hypoxia or need for supplemental oxygen. Routine blood test demonstrated labs consistent with his known history of end-stage renal disease with no critical electrolyte abnormalities although his potassium was mildly elevated. His chest x-ray demonstrated no evidence of pulmonary vascular congestion or fluid overload but there was documented cardiomegaly. The ER physician contacted his primary nurse aide evaluator regarding the situation and it was felt that there was no guarantee that he could go to his outpatient dialysis center on Thursday particularly given his issues with transportation that resulted in his missing his dialysis treatment on Thursday. He was subsequently admitted to the hospital for further evaluation and therapy. Renal consultation was requested due to his end-stage renal disease. The patient is somewhat familiar to me as I have taking care of him before for his dialysis needs. He normally dialyzes on a Thursday, , Thursday dialysis schedule at [facility] under the care of Dr. Candelario. in spite of his missed dialysis treatment on Thursday, he has no critical electrolyte abnormalities, acid-base disorder, volume overload, or evidence of uremia. I am not entirely sure as to the etiology of his shortness of breath but he clinically appears to be
[2023-05-17] MEDS: ERGOCALCIFEROL 50,000 UNITS CAPSULE 50000 UNITS PO (18:29)
[2023-05-17] MEDS: carvediloL 25 MG TABLET PO (18:29)
[2023-05-17] MEDS: hydrALAZINE HCL 50 MG TABLET 100 MG PO (18:29)
[2023-05-17] MEDS: cloNIDine HCL 0.1 MG TABLET 0.3 MG PO (18:30)
[2023-05-17] MEDS: SEVELAMER CARBONATE 800 MG TABLET PO (18:30)
--- NOTE | 2023-05-17 18:43 | PM.IMHP ---
H&P: HPI History of Present Illness Date/Time: 05/17/23 18:43 Chief Complaint: 1. Shortness of breath 2. Missed HD session Narrative: Pravin Carlin is a 47 yo M with a mHx signficant for ESRD on HD-TTS, HTN, Depression, GERD. He states that due to transportation contingencies, he missed his HD session on 05/16/23; by the end of the day he was experiencing shortness of breath, malaise, fatigue and poor performance of ADLs. Aggravated by exertion; alleviated by rest; associated with anxiety. He denies cough, fevers, chills, leg swellings, dizziness or LOC. He does not smoke/chew tobacco, vape nicotine, consume recreational/illicit drugs; his family hx is not contributory to the PC. At the bedside, he is calm and alert; not in painful/respiratory distress; no pedal edema Significant work-up findings: WBC 9 Hb 9.6 PLT 299 MCV 95 Na 135 K 5.1 Cl 96 BUN 84 Cr 14 GFR 4 AST 18 ALT 8 ALP 131 T. Bili 0.5 CXR: There is no pneumonia, pleural effusion, or pneumothorax. Cardiomegaly syndrome. There is a left internal jugular central venous catheter with tip in proximal right atrium. Treatment rendered: HD slated for tomorrow Review of Systems Review of Systems: All systems reviewed & are unremarkable except as noted in HPI and below Constitutional: Constitutional: Reports no additional constitutional complaints Eyes: Eyes: Reports no additional eye complaints ENT: Reports system reviewed and no additional complaints, except as documented Cardiovascular: Cardiovascular: Reports no additional cardiovascular complaints Respiratory: Respiratory: Reports dyspnea Gastrointestinal: Gastrointestinal: Reports no additional gastrointestinal complaints Musculoskeletal: Musculoskeletal: Reports no additional musculoskeletal complaints Integumentary/Breasts: Skin/Breast: Reports dry skin and Denies rash Neurologic: Reports system reviewed and no additional complaints, except as documented Psychiatric: Psychiatric: Reports no additional psychiatric complaints [facility] Past Medical History Medical History (Updated 05/17/23 @ 19:31 by Liam Berumen MD) History of end stage renal disease Social History Social History (Updated 05/17/23 @ 09:23 by Tyra Dc PA-C) Smoking status: Never smoker Alcohol intake: never Substance use: never Do You Feel Safe in your Home?: Yes Lack of Transportation: YES Lack of Food: Sometimes True Current Housing: I Have Housing Concerned About Future Housing: YES Difficulty Paying Gas/Electric Bills: YES Difficulty Paying for Meds: No Currently Unemployed: YES Education: Decline to Answer Difficulty w/ Childcare or Family Care: No Spiritual care concerns: No Meds Home Medications and Allergies Home Medications Medication Instructions Recorded Confirmed Type carvedilol 25 mg tablet 25 mg PO BID 05/17/23 05/17/23 History cholecalciferol (vitamin D3) 1,250 1,250 mcg PO WEEKLY 05/17/23 05/17/23 History mcg (50,000 unit) capsule citalopram 20 mg tablet 20 mg PO DAILY 05/17/23 05/17/23 History clonidine HCl 0.3 mg tablet 0.3 mg PO TID 05/17/23 05/17/23 History hydralazine 100 mg tablet 100 mg PO TID 05/17/23 05/17/23 History hydroxyzine HCl 25 mg tablet 25 mg PO BID PRN Itching 05/17/23 05/17/23 History lisinopril 40 mg tablet 40 mg PO DAILY 05/17/23 05/17/23 History megestrol 40 mg tablet 40 mg PO DAILY 05/17/23 05/17/23 History nifedipine 90 mg tablet,extended 90 mg PO DAILY 05/17/23 05/17/23 History release pantoprazole 40 mg tablet,delayed 40 mg PO DAILY 05/17/23 05/17/23 History release sevelamer carbonate 800 mg tablet 800 mg PO TID 05/17/23 05/17/23 History Allergies Allergy/AdvReac Type Severity Reaction Status Date / Time No Known Allergies Allergy Verified 05/17/23 09:12 Vital Signs Vital Signs - 24 hr 05/17/23 09:00 05/17/23 09:09 05/17/23 09:09 Temperature 97.5 F L Pulse Rate 79 88 Respirato
[2023-05-18] VITALS (25 sets, daily range): BP systolic 126–221; BP diastolic 71–129; PULSE 73–87; RESP 16–20; TEMP 35.4–37; O2SAT 96–99
[2023-05-18] MEDS: ONDANSETRON INJ 4 MG/2 ML VIAL IV PUSH (03:54)
[2023-05-18] MEDS: ACETAMINOPHEN 500 MG TABLET 1000 MG PO (04:20)
[2023-05-18 06:44] LABS: Basophils Percent Auto 0.3 % (0.2-1.2); Eosinophils Absolute Auto 0.2 K/mm3 (0-0.3); Eosinophils Percent Auto 1.8 % (0-4.4); Hematocrit 30.7 % (42.0-52.0); Immature Granulocyte Absolute 0.04 K/mm3 (0.00-0.031); Immature Granulocyte Percent A 0.4 % (0-0.5); Immature Platelet Fraction Pct 3.4 % (0.9-11.2); Lymphocytes Absolute Auto 1.23 K/mm3 (0.9-3.2); Lymphocytes Percent Auto 10.8 % (18.3-44.2); Mean Corpuscular HGB Conc 29.3 g/dl (32-36); Mean Corpuscular Hemoglobin 29.1 pg (26-34); Mean Corpuscular Volume 99.4 fl (80-100); Monocytes Percent Auto 8.4 % (2.6-8.5); Neutrophils Absolute Auto 8.9 K/mm3 (1.3-6.7); Neutrophils Percent Auto 78.3 % (45.5-73.1); Platelet Count Result 234 k/mm3 (150-375); Red Blood Count 3.09 M/mm3 (4.6-6.20); Red Cell Distribution Width 17.4 % (11.5-14.5); White Blood Count 11.4 K/mm3 (4.5-10.0)
[2023-05-18 07:09] LABS: Albumin Level 3.8 g/dL (3.5-5.1); Anion Gap 17 mmol/L (8-16); Blood Urea Nitrogen 112 mg/dL (9-20); Calcium 9.5 mg/dL (8.4-10.2); Carbon Dioxide 22 mmol/L (22-30); Chloride 94 mmol/L (98-107); Glucose 86 mg/dL (65-110); Phosphorus 7.2 mg/dL (2.5-4.5); Sodium 133 mmol/L (137-145)
[2023-05-18 07:40] LABS: Estimated CRCL calculation 5 ml/min; Estimated Glomerular Filt Rate 4
[2023-05-18 07:54] LABS: Hepatitis B Surface Anti Res Negative
--- NOTE | 2023-05-18 08:13 | PC.NURSE ---
patient taken to dialysis at 0811 for a 3.5 hr session
[2023-05-18] MEDS: cloNIDine HCL 0.1 MG TABLET 0.3 MG PO ×2 (09:24→14:03)
[2023-05-18] MEDS: hydrALAZINE HCL 50 MG TABLET 100 MG PO ×2 (09:25→14:02)
--- NOTE | 2023-05-18 09:30 | P.PNNP_ITS ---
Progress Note: A&P Assessment and Plan (1) End stage renal disease: Code(s): N18.6 - End stage renal disease Status: Chronic Assessment and Plan: * HD today * resume/transiton back to T/T/S outpatient dialysis schedule next week * follows with Dr. Candelario at [facility] * follow electrolytes, volume status, and clearance (2) Shortness of breath: Code(s): R06.02 - Shortness of breath Status: Acute Assessment and Plan: * presenting complaint to ER * etiology not clear... * no respiratory distress * no hypoxia noted * CXR clear * stable BP * no chest pain * follow symptomatically (3) Hyperkalemia: Code(s): E87.5 - Hyperkalemia Status: Acute Assessment and Plan: * worse this AM * should correct with dialysis (4) Hypertension: Code(s): I10 - Essential (primary) hypertension Status: Chronic Assessment and Plan: * quite elevated at this time * AM blood pressure medications to be given * follow trend of hemodynamics (5) Anemia: Code(s): D64.9 - Anemia, unspecified Status: Chronic Assessment and Plan: * due to ESRD * Epogen with HD * follow trend of H/H Not opposed to discharge after his dialysis treatment today if he is otherwise medically stable. He can resume outpatient dialysis tomorrow or and follow-up with his primary belt measurer for ongoing management. Will continue to follow. Subjective Date/time seen: 05/18/23 09:30 Interval history: Follow-up for end stage renal disease on hemodialysis. Tolerating hemodialysis treatment at the time of my visit (seen on HD at 9:20AM); BP running quite high so dialysis nurse requested he get his scheduled BP medications fromn the floor; otherwise; no apparent distress noted. Exam Narrative: General: WD/WN AA male in NAD Heart: normal S1 and S2; no rub Lungs: clear anteriorly; coarse at bases Abdomen: soft, nontender, nondistended, positive bowel sounds Extremities: no cyanosis or clubbing; trace edema Skin: warm and dry Objective Data Vital Signs Vital Signs: Vital Signs Temp Pulse Resp BP Pulse Ox O2 Del Method 05/18/23 08:13 97.7 F 76 16 208/128 H 96 05/18/23 06:00 97.8 F 73 16 126/71 98 05/18/23 04:00 78 05/17/23 20:00 85 05/17/23 20:00 Room Air 05/17/23 18:29 77 05/17/23 14:00 98.1 F 82 16 123/67 98 05/17/23 13:32 Room Air Intake/Output Intake/Output: Intake & Output 05/15/23 05/16/23 05/17/23 05/18/23 23:59 23:59 23:59 23:59 Intake Total 240 640 Output Total 200 Balance 40 640 Meds/Results Medications: Active Medications Generic Name Dose Route Start Last Admin Trade Name Trueq PRN Reason Stop Dose Admin Carvedilol 25 mg 05/17/23 18:00 05/18/23 11:21 Carvedilol 25 Mg Tablet PO Not Given BID [place] Clonidine HCl 0.3 mg 05/17/23 18:00 05/18/23 09:24 Clonidine Hcl 0.1 Mg Tablet PO 0.3 mg TID [place] Administration Epoetin Benjamin-epbx 10,000 units 05/18/23 20:00 05/18/23 10:36 Epoetin
--- NOTE | 2023-05-18 09:30 | PM.PNNEP ---
Progress Note: A&P Assessment and Plan (1) End stage renal disease: Code(s): N18.6 - End stage renal disease Status: Chronic Assessment and Plan: HD today resume/transiton back to T/T/S outpatient dialysis schedule next week follows with Dr. Candelario at [facility] follow electrolytes, volume status, and clearance (2) Shortness of breath: Code(s): R06.02 - Shortness of breath Status: Acute Assessment and Plan: presenting complaint to ER etiology not clear... no respiratory distress no hypoxia noted CXR clear stable BP no chest pain follow symptomatically (3) Hyperkalemia: Code(s): E87.5 - Hyperkalemia Status: Acute Assessment and Plan: worse this AM should correct with dialysis (4) Hypertension: Code(s): I10 - Essential (primary) hypertension Status: Chronic Assessment and Plan: quite elevated at this time AM blood pressure medications to be given follow trend of hemodynamics (5) Anemia: Code(s): D64.9 - Anemia, unspecified Status: Chronic Assessment and Plan: due to ESRD Epogen with HD follow trend of H/H Not opposed to discharge after his dialysis treatment today if he is otherwise medically stable. He can resume outpatient dialysis tomorrow or and follow-up with his primary substance abuse services director for ongoing management. Will continue to follow. Subjective Date/time seen: 05/18/23 09:30 Interval history: Follow-up for end stage renal disease on hemodialysis. Tolerating hemodialysis treatment at the time of my visit (seen on HD at 9:20AM); BP running quite high so dialysis nurse requested he get his scheduled BP medications fromn the floor; otherwise; no apparent distress noted. Exam Narrative: General: WD/WN AA male in NAD Heart: normal S1 and S2; no rub Lungs: clear anteriorly; coarse at bases Abdomen: soft, nontender, nondistended, positive bowel sounds Extremities: no cyanosis or clubbing; trace edema Skin: warm and dry Objective Data Vital Signs Vital Signs: Vital Signs Temp Pulse Resp BP Pulse Ox O2 Del Method 05/18/23 08:13 97.7 F 76 16 208/128 H 96 05/18/23 06:00 97.8 F 73 16 126/71 98 05/18/23 04:00 78 05/17/23 20:00 85 05/17/23 20:00 Room Air 05/17/23 18:29 77 05/17/23 14:00 98.1 F 82 16 123/67 98 05/17/23 13:32 Room Air Intake/Output Intake/Output: Intake & Output 05/15/23 05/16/23 05/17/23 05/18/23 23:59 23:59 23:59 23:59 Intake Total 240 640 Output Total 200 Balance 40 640 Meds/Results Medications: Active Medications Generic Name Dose Route Start Last Admin Trade Name Freq PRN Reason Stop Dose Admin Carvedilol 25 mg 05/17/23 18:00 05/18/23 11:21 Carvedilol 25 Mg Tablet PO Not Given BID [facility] Clonidine HCl 0.3 mg 05/17/23 18:00 05/18/23 09:24 Clonidine Hcl 0.1 Mg Tablet PO 0.3 mg TID [facility] Administration Epoetin Benjamin-epbx 10,000 units 05/18/23 20:00 05/18/23 10:36 Epoetin Benjamin-Epbx 10,000 Units/Ml Vial IV PUSH 05/18/23 20:01 10,000 units ONCE ONE Administration Ergocalciferol 50,000 units 05/17/23 18:00 05/17/23 18:29 Ergocalciferol 50,000 Units Capsule PO 50,000 units Russ@0900 [facility] Administration Heparin Sodium (Porcine) 5,000 units 05/18/23 09:00 Heparin Sodium 5,000 Units/Ml Vial SUB-Q Q12HR [facility] Hydralazine HCl 100 mg 05/17/23 18:00 05/18/23 09:25 Hydralazine Hcl 50 Mg Tablet PO 100 mg TID [facility] Administration Hydroxyzine HCl 25 mg 05/17/23 17:48 Hydroxyzine Hcl 25 Mg Tablet PO BID PRN Itching Albumin Human 50 mls @ 999 mls/hr 05/18/23 20:00 Albutein IVPB 05/19/23 19:59 Q10M PRN HYPOTENSION Lisinopril 40 mg 05/18/23 09:00 Lisinopril 20 Mg Tablet PO DAILY [facility] Megestrol Acetate 40 mg 05/18/23 09:00 Megestrol Acetate (*Chem
[2023-05-18] MEDS: EPOETIN ALFA-EPBX 10,000 UNITS/ML VIAL 10000 UNITS IV PUSH (10:36)
[2023-05-18] MEDS: SODIUM CHLORIDE 0.9% IV 1,000 ML 999 ML IV CONT (10:39)
[2023-05-18] MEDS: HEPARIN SODIUM 1,000 UNITS/ML VIAL 5000 UNITS (10:41)
[2023-05-18 10:52] LABS: Hepatitis B Surface Antigen Negative (Negative)
--- NOTE | 2023-05-18 12:24 | PC.NURSE ---
patient back in room from dialysis at 1224
[2023-05-18] MEDS: HEPARIN SODIUM 5,000 UNITS/ML VIAL 5000 UNITS SUB-Q (12:47)
[2023-05-18] MEDS: NIFEdipine 30 MG TAB.ER.24 90 MG PO (12:48)
[2023-05-18] MEDS: lisinopriL 20 MG TABLET 40 MG PO (12:48)
[2023-05-18] MEDS: carvediloL 25 MG TABLET PO (12:48)
[2023-05-18] MEDS: SEVELAMER CARBONATE 800 MG TABLET PO (12:49)
[2023-05-18] MEDS: PANTOPRAZOLE 40 MG TABLET PO (12:49)
[2023-05-18] MEDS: MEGESTROL ACETATE (*CHEMO) 40 MG TABLET PO (12:49)
[2023-05-18 13:28] LABS: NT Pro B Type Natriuretic Pept > 30000 pg/mL (19.9-100)
[2023-05-18 15:06] LABS: Anion Gap 12 mmol/L (8-16); Blood Urea Nitrogen 70 mg/dL (9-20); Calcium 9.4 mg/dL (8.4-10.2); Carbon Dioxide 28 mmol/L (22-30); Chloride 96 mmol/L (98-107); Estimated CRCL calculation 9 ml/min; Estimated Glomerular Filt Rate 8; Glucose 109 mg/dL (65-110); Sodium 136 mmol/L (137-145)
--- NOTE | 2023-05-18 15:34 | PM.DS ---
DS: Admitting Diagnosis Discharge Date 05/18/23 Admitting Diagnosis 1. Shortness of breath 2. Missed HD session DS: Discharge Diagnosis Discharge Diagnosis (1) Hyperkalemia: Code(s): E87.5 - Hyperkalemia Status: Acute Assessment and Plan: Hemodialysis (2) ESRD needing dialysis: Code(s): N18.6 - End stage renal disease; Z99.2 - Dependence on renal dialysis Status: Acute Assessment and Plan: Hemodialysis (3) Shortness of breath: Code(s): R06.02 - Shortness of breath Status: Acute Assessment and Plan: Improved; (4) Missed dialysis: Status: Acute Assessment and Plan: Underwent HD Plan Acute and principal conditions 1. Missed HD session 2. Hyperkalemia 3. Shortness of breath; probably fluid overload Awaiting HD Supplemental oxygen PRN; IS Chronic and stable conditions 1. GERD. on PPI 2. Hypertension. on Nifedipine, Clonidine, Hydralazine, Carvedilol Code status. Full Nutrition. Renal diet Disposition. TBD VTE prophylaxis. Lovenox; SCDs DS: Summary Hospital Course Reason for hospitalization: 1. Shortness of breath 2. Missed HD session Hospital Course: Chief Complaint: 1. Shortness of breath 2. Missed HD session Narrative: Pravin Carlin is a 47 yo M with a mHx signficant for ESRD on HD-TTS, HTN, Depression, GERD. He states that due to transportation contingencies, he missed his HD session on 05/16/23; by the end of the day he was experiencing shortness of breath, malaise, fatigue and poor performance of ADLs. Aggravated by exertion; alleviated by rest; associated with anxiety. He denies cough, fevers, chills, leg swellings, dizziness or LOC. He does not smoke/chew tobacco, vape nicotine, consume recreational/illicit drugs; his family hx is not contributory to the PC. At the bedside, he is calm and alert; not in painful/respiratory distress; no pedal edema Significant work-up findings: WBC 9 Hb 9.6 PLT 299 MCV 95 Na 135 ?K 5.1? Cl 96 BUN 84 Cr 14 GFR 4 AST 18 ALT 8 ALP 131 T. Bili 0.5 CXR: There is no pneumonia, pleural effusion, or pneumothorax. Cardiomegaly syndrome. There is a left internal jugular central venous catheter with tip in proximal right atrium. Treatment rendered: Hemodialysis Procedures performed: None Time Spent with Patient Time attestation: Total time spent providing and/or coordinating discharge services: Time spent: Greater than 30 minutes Exam Const: General: comfortable and no acute distress HENMT: Ears: TM's normal bilaterally Mouth: Yes moist mucous membranes Eyes: General: appearance normal, both eyes and all related structures Neck: Neck: supple Chest: Other: Left sided Hemodialysis port Resp: Effort & Inspection: normal respiratory effort Auscultation: rales Cardio: Rate: regular rate Rhythm: regular rhythm GI: Auscultation: normal bowel sounds Skin: General skin exam: normal color Neuro: General: gait normal Motor exam (neuro): 5/5 motor strength present throughout Extrem: General: normal to inspection Psych: Mental Status: mental status grossly normal DS: Data Data Completed and Pending Labs on day of discharge: Labs from last 24 hours 05/18/23 05/18/23 05/18/23 12:50 09:33 06:21 WBC 11.4 H RBC 3.09 L Hgb 9.0 L Hct 30.7 L MCV 99.4 MCH 29.1 MCHC 29.3 L RDW 17.4 H Plt Count 234 MPV 10.0 Immature Gran % (Auto) 0.4 Neut % (Auto) 78.3 H Lymph % (Auto) 10.8 L [place] % (Auto) 8.4 Eos % (Auto) 1.8 Baso % (Auto) 0.3 Lymph # (Auto) 1.23 [place] # (Auto) 1.0 H Eos # (Auto) 0.2 Baso # (Auto) 0.0 Abs Immat Gran (auto) 0.04 H Absolute Neuts (auto) 8.9 H Absolute Nucleated RBC 0.0 Nucleated RBC % 0.0 % Immature Plt Fraction 3.4 Sodium 136 L 133 L Potassium 4.0 6.0 H* Chloride 96 L 94 L Carbon Dioxide 28 22 Anion Gap 12 17 H BUN 70 H D 112 H D C
== END 2023-05-18 16:50 | disposition home or self-care (01) ==
LOC: ANHED 09:26 → ANH3MEDSUR 11:37
PROVIDERS: Internal Medicine Nephrology; Admitting Provider Internal Medicine; Emergency Provider Physician Assistant; Visit Provider Internal Medicine
DX: I13.11 Hypertensive heart and chronic kidney disease without heart failure, with stage 5 chronic kidney disease, or end stage renal disease (principal); E87.5 Hyperkalemia; N18.6 End stage renal disease; Z99.2 Dependence on renal dialysis; D63.1 Anemia in chronic kidney disease; K21.9 Gastro-esophageal reflux disease without esophagitis; R94.31 Abnormal electrocardiogram [ECG] [EKG]; Z79.899 Other long term (current) drug therapy
CPT/HCPCS: 36415; 71046; 80048; 80053; 80069; 83880; 85025; 85055; 86706; 87340; 93005; 96374; 96375; 99285; A9270; G0257; G0378; J1644; J2405; J7030; P9047; Q5105

== ENCOUNTER 2023-09-23 13:46 | Emergency (ER) | payer MEDICARE, SELFPAY ==
--- NOTE | ~2023-09-23 | XR_ITS ---
XR chest 2V Ordering provider: Elida Chang MD History: 47 years Male with . shortness of breath WITH N/V/D X 2 DAYS . Comparison: May 17, 2023 FINDINGS: MEDIASTINUM: The cardiac silhouette is slightly enlarged. Left permacath with the tip overlying super ior vena cava. LUNGS: No effusion or pneumothorax. Slightly prominent markings bilaterally. Possibility of early pne umonia in the right lung base is not excluded. Follow-up advised. OTHER: No free air under the diaphragm. IMPRESSION: Possibility of early pneumonia in the right lung base is not excluded. Follow-up advised. Reviewed, dictated and finalized at location A. IMPRESSION: Possibility of early pneumonia in the right lung base is not excluded. Follow-u p advised.
[2023-09-23 13:55] VITALS: BP 124/82; PULSE 73; RESP 18; TEMP 36.4; O2SAT 97
--- NOTE | 2023-09-23 14:24 | ECG_ITS ---
Test Date: 2023-09-23 15:15:20 Measurements Intervals [place] Rate: 72 P: 39 VA: 210 QRS: -42 QRSD: 88 T: 136 QT: 440 QTc: 482 Interpretive Statements SINUS RHYTHM WITH FIRST DEGREE AV BLOCK POSSIBLE LEFT ATRIAL ENLARGEMENT [-0.1mV P WAVE IN V1/V2] MARKED LEFT AXIS DEVIATION [QRS AXIS < -30] LEFT VENTRICULAR HYPERTROPHY AND ST-T CHANGE [VOLTAGE CRITERIA PLUS ST/T ABNORMALITY] LATERAL ST T-WAVE ABNORMALITIES, CONSIDER ISCHEMIA VERSUS HYPERTROPHY ABNORMAL ECG No previous ECG available for comparison Electronically Signed On 09-23-2023 15:20:52 CDT by Geoff Miller M.D.
--- NOTE | 2023-09-23 14:37 | ED.GENADULT ---
HPI - General Adult General Chief complaint: Unspecified Stated complaint: itching since dialysis yesterday Time Seen by Provider: 09/23/23 14:23 History of Present Illness HPI narrative: Patient is a 47 year old male with history of ESRD on HD, HTN, anemia, CAD here with nausea, shortness of breath and itching. Patient notes that he had some transportation issues this week and weekend to get to his dialysis appointments. On Thursday he had a short dialysis run and he also had a short dialysis run yesterday. He does his dialysis at [place], his customer service security officer is Dr. Summers. He notes that since yesterday he has been having shortness of breath, nausea and some diffuse body itching. He gets HD through a catheter in his left chest, had previous fistulas which failed. He has been on HD for the last 7 years. He denies sick contacts, denies cough, fever, chills, diarrhea. Related Data Home Medications Medication Instructions Recorded Confirmed carvedilol 25 mg tablet 25 mg PO BID 05/17/23 05/17/23 cholecalciferol (vitamin D3) 1,250 1,250 mcg PO WEEKLY 05/17/23 05/17/23 mcg (50,000 unit) capsule citalopram 20 mg tablet 20 mg PO DAILY 05/17/23 05/17/23 clonidine HCl 0.3 mg tablet 0.3 mg PO TID 05/17/23 05/17/23 hydralazine 100 mg tablet 100 mg PO TID 05/17/23 05/17/23 hydroxyzine HCl 25 mg tablet 25 mg PO BID PRN Itching 05/17/23 05/17/23 lisinopril 40 mg tablet 40 mg PO DAILY 05/17/23 05/17/23 megestrol 40 mg tablet 40 mg PO DAILY 05/17/23 05/17/23 nifedipine 90 mg tablet,extended 90 mg PO DAILY 05/17/23 05/17/23 release pantoprazole 40 mg tablet,delayed 40 mg PO DAILY 05/17/23 05/17/23 release sevelamer carbonate 800 mg tablet 800 mg PO TID 05/17/23 05/17/23 Allergies Allergy/AdvReac Type Severity Reaction Status Date / Time shellfish derived Allergy Unknown Unknown Verified 09/23/23 13:47 shrimp Allergy Unknown Unknown Verified 09/23/23 13:47 venom-honey bee Allergy Unknown Unknown Verified 09/23/23 13:47 Cat Dander Allergy Unknown Unknown Uncoded 09/23/23 13:47 Review of Systems Review of Systems: All systems reviewed & are unremarkable except as noted in HPI and below PMFSH Past Medical History Medical History (Updated 09/23/23 @ 17:00 by Elida Chang MD) Acute uremia Anemia in CKD (chronic kidney disease) Chronic anemia Related to his renal failure. Congestive heart failure Echocardiogram in September 2017 showed diastolic dysfunction with ejection fraction of 55%. Coronary artery disease With history of [place]. Most recent heart catheterization was in June 2018 at [facility], requiring no intervention. Depression with anxiety Patient with major depressive disorder and generalized anxiety disorder. End-stage renal disease on hemodialysis Patient of Dr. Candelario. He has dialysis Thursday, Thursday, and Thursday. Fractures History of ankle fracture which was repaired surgically. History of end stage renal disease History of noncompliance with medical treatment Hypertension Hypertensive renal disease Pericardial effusion Moderate pericardial effusion noted by echo in 2018. Reflux esophagitis With duodenitis noted on EGD 04/29/[address] Rice. Secondary hyperparathyroidism of renal origin Severe hypertension With severe concentric LVH noted on echocardiogram in 2018. Volume overload Surgical History Surgical History (Updated 05/18/23 @ 10:34 by Radha Patel) History of ankle surgery ORIF at the age of 14. 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 Status post creation of arteriovenous fistula Left upper extremity. Family History Family History (System 05/18/23 @ 10:34 by Radha Patel) Grandparent Kidney failure Social History Social History (System 05/18/23 @ 10:34 by Radha Patel) Social History: The patient lives in [place] with his mother. He has 1 daughter. He is now working at a busy local restaurant, washing dishes. He d
--- NOTE | 2023-09-23 15:33 | PC.NURSE ---
Pt refused covid/flu/RSV test. I was told to inform that test could help explain symptoms he presented with. Pt still refused test.
[2023-09-23 15:35] LABS: Basophils Percent Auto 0.4 % (0.2-1.2); Eosinophils Absolute Auto 0.2 K/mm3 (0-0.3); Eosinophils Percent Auto 2.7 % (0-4.4); Hematocrit 36.1 % (42.0-52.0); Hemoglobin 11.2 g/dL (14.0-18.0); Immature Granulocyte Absolute 0.01 K/mm3 (0.00-0.031); Immature Granulocyte Percent A 0.2 % (0-0.5); Lymphocytes Absolute Auto 0.86 K/mm3 (0.9-3.2); Lymphocytes Percent Auto 15.2 % (18.3-44.2); Mean Corpuscular Hemoglobin 28.8 pg (26-34); Mean Corpuscular Volume 92.8 fl (80-100); Mean Platelet Volume 9.8 fl (7.4-10.4); Monocytes Absolute Auto 0.8 K/mm3 (0.1-0.6); Monocytes Percent Auto 13.7 % (2.6-8.5); Neutrophils Absolute Auto 3.8 K/mm3 (1.3-6.7); Neutrophils Percent Auto 67.8 % (45.5-73.1); Nucleated Red Blood Cells Perc 0.4 % (0.0-0.2); Platelet Count Result 225 k/mm3 (150-375); Red Blood Count 3.89 M/mm3 (4.6-6.20); Red Cell Distribution Width 18.1 % (11.5-14.5); White Blood Count 5.6 K/mm3 (4.5-10.0)
[2023-09-23 15:46] LABS: Alanine Aminotransferase 10 U/L (6-50); Albumin Level 4.3 g/dL (3.5-5.1); Alkaline Phosphatase 104 U/L (38-126); Anion Gap 9 mmol/L (4-12); Aspartate Amino Transferase 23 U/L (17-59); Bilirubin,Total 0.5 mg/dL (0.2-1.3); Blood Urea Nitrogen 61 mg/dL (9-20); Calcium 10.5 mg/dL (8.4-10.2); Carbon Dioxide 32 mmol/L (22-30); Chloride 94 mmol/L (98-107); Estimated CRCL calculation 7 ml/min; Estimated Glomerular Filt Rate 6; Glucose 99 mg/dL (65-110); Lipase 108 U/L (23-300); Magnesium 2.9 mg/dL (1.6-2.3); Potassium 5.1 mmol/L (3.4-5.0); Sodium 135 mmol/L (137-145)
[2023-09-23 15:47] LABS: INR 0.9; Prothrombin Time 12.5 Seconds (11.1-14.7)
[2023-09-23 15:48] LABS: Partial Thromboplastin Time 32.6 Seconds (22.3-36.8)
[2023-09-23 17:05] VITALS: BP 127/90; PULSE 72; RESP 18; O2SAT 100
[2023-09-23 17:06] VITALS: RESP 18
[2023-09-23] MEDS: AMOXICILLIN/CLAVULANATE K 875-125 MG TAB 1 TABLET PO (17:11)
[2023-09-23] MEDS: DOXYCYCLINE HYCLATE 100 MG TABLET PO (17:11)
== END 2023-09-23 17:16 | disposition home or self-care (01) ==
PROVIDERS: Emergency Provider Student in an Organized Health Care Education/Training Program
DX: J16.8 Pneumonia due to other specified infectious organisms (principal); I13.2 Hypertensive heart and chronic kidney disease with heart failure and with stage 5 chronic kidney disease, or end stage renal disease; N18.6 End stage renal disease; I50.9 Heart failure, unspecified; D63.1 Anemia in chronic kidney disease; N25.81 Secondary hyperparathyroidism of renal origin; Z99.2 Dependence on renal dialysis; I25.10 Atherosclerotic heart disease of native coronary artery without angina pectoris; K21.00 Gastro-esophageal reflux disease with esophagitis, without bleeding; F41.8 Other specified anxiety disorders; Z87.891 Personal history of nicotine dependence; Z79.899 Other long term (current) drug therapy; R94.31 Abnormal electrocardiogram [ECG] [EKG]; I51.7 Cardiomegaly
CPT/HCPCS: 36415; 71046; 80053; 83690; 83735; 85025; 85610; 85730; 93005; 99283; A9270

== ENCOUNTER 2024-04-19 01:57 | Observation (INO) | payer MEDICARE, SELFPAY ==
[2024-04-19] VITALS (39 sets, daily range): BP systolic 116–191; BP diastolic 68–116; PULSE 71–93; RESP 14–28; TEMP 36.4–36.9; O2SAT 95–100; BMI 24.1
--- NOTE | ~2024-04-19 | XR_ITS ---
EXAMINATION: XR chest 1V portable DATE: 04/19/2024 09:57 INDICATION: Dialysis catheter occlusion. TECHNIQUE: A single frontal view of the chest was obtained. COMPARISON: Chest 2 views 09/23/2023 FINDINGS: There is mild atelectasis in right lower lung zone. No pleural effusion or pneumothorax. Ca rdiomegaly is noted. A left internal jugular central venous catheter is seen with tip in the proximal right atrium. IMPRESSION: 1. Mild atelectasis in right lower lung zone. 2. Cardiomegaly. Reviewed, dictated and finalized at location A. ENSATION ADVISOR
[2024-04-19 03:32] LABS: Basophils Percent Auto 0.4 % (0.2-1.2); Eosinophils Absolute Auto 0.1 K/mm3 (0-0.3); Eosinophils Percent Auto 1.9 % (0-4.4); Hematocrit 32.7 % (42.0-52.0); Hemoglobin 10.1 g/dL (14.0-18.0); Immature Granulocyte Absolute 0.02 K/mm3 (0.00-0.031); Immature Granulocyte Percent A 0.4 % (0-0.5); Lymphocytes Absolute Auto 1.28 K/mm3 (0.9-3.2); Lymphocytes Percent Auto 22.4 % (18.3-44.2); Mean Corpuscular HGB Conc 30.9 g/dl (32-36); Mean Platelet Volume 10.4 fl (7.4-10.4); Monocytes Absolute Auto 0.8 K/mm3 (0.1-0.6); Neutrophils Absolute Auto 3.5 K/mm3 (1.3-6.7); Neutrophils Percent Auto 60.9 % (45.5-73.1); Platelet Count Result 223 k/mm3 (150-375); Red Blood Count 3.48 M/mm3 (4.6-6.20); Red Cell Distribution Width 17.5 % (11.5-14.5); White Blood Count 5.7 K/mm3 (4.5-10.0)
--- NOTE | 2024-04-19 03:36 | ED.GENADULT ---
HPI - General Adult General Chief complaint: Unspecified Stated complaint: here for emergency surgery Time Seen by Provider: 04/19/24 02:14 History of Present Illness HPI narrative: Patient is a 48-year-old male who presents to the emergency department this evening due to concern for issues with his dialysis catheter. Patient states that [facility] sent him here as a his catheter output has been less than it should be for the past 3 weeks. Patient states that his output is normally on 400 and for the past 3 weeks it has been consistently around 250. Patient states that he gets his dialysis every Thursday, and Thursday and has been attending his dialysis sessions regularly. Patient is currently denying any symptoms and denies any pain. States that he is here as he was to come to the ED by [facility] for further eval. Related Data Home Medications ?Medication ?Instructions ?Recorded ?Confirmed ?Last Taken ?Type carvedilol 25 mg tablet 25 mg PO BID 05/17/23 05/17/23 05/17/23 09:00 History cholecalciferol (vitamin D3) 1,250 1,250 mcg PO WEEKLY 05/17/23 05/17/23 05/10/23 09:00 History mcg (50,000 unit) capsule citalopram 20 mg tablet 20 mg PO DAILY 05/17/23 05/17/23 05/17/23 09:00 History clonidine HCl 0.3 mg tablet 0.3 mg PO TID 05/17/23 05/17/23 05/17/23 09:00 History hydralazine 100 mg tablet 100 mg PO TID 05/17/23 05/17/23 05/17/23 09:00 History hydroxyzine HCl 25 mg tablet 25 mg PO BID PRN Itching 05/17/23 05/17/23 05/17/23 09:00 History lisinopril 40 mg tablet 40 mg PO DAILY 05/17/23 05/17/23 05/17/23 09:00 History megestrol 40 mg tablet 40 mg PO DAILY 05/17/23 05/17/23 05/17/23 09:00 History nifedipine 90 mg tablet,extended 90 mg PO DAILY 05/17/23 05/17/23 05/17/23 09:00 History release pantoprazole 40 mg tablet,delayed 40 mg PO DAILY 05/17/23 05/17/23 05/17/23 09:00 History release sevelamer carbonate 800 mg tablet 800 mg PO TID 05/17/23 05/17/23 05/17/23 09:00 History Allergies Allergy/AdvReac Type Severity Reaction Status Date / Time shellfish derived Allergy Unknown Unknown Verified 09/23/23 13:47 shrimp Allergy Unknown Unknown Verified 09/23/23 13:47 venom-honey bee Allergy Unknown Unknown Verified 09/23/23 13:47 Cat Dander Allergy Unknown Unknown Uncoded 09/23/23 13:47 Review of Systems Review of Systems: All systems are reviewed and are negative unless stated otherwise in the HPI. [facility] Past Medical History Medical History Volume overload Reflux esophagitis With duodenitis noted on EGD 04/29/[address] Rice. Secondary hyperparathyroidism of renal origin Hypertensive renal disease Anemia in CKD (chronic kidney disease) Pericardial effusion Moderate pericardial effusion noted by echo in 2018. History of noncompliance with medical treatment Chronic anemia Related to his renal failure. Severe hypertension With severe concentric LVH noted on echocardiogram in 2018. Congestive heart failure Echocardiogram in September 2017 showed diastolic dysfunction with ejection fraction of 55%. Coronary artery disease With history of [place]. Most recent heart catheterization was in June 2018 at [facility], requiring no intervention. End-stage renal disease on hemodialysis Patient of Dr. Candelario. He has dialysis Thursday, Thursday, and Thursday. Depression with anxiety Patient with major depressive disorder and generalized anxiety disorder. Acute uremia Fractures History of ankle fracture which was repaired surgically. Hypertension History of end stage renal disease Surgical History Surgical History History of ankle surgery ORIF at the age of 14. 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 Status post creation of arteriovenous fistula Left upper extremity. Family History Family History Grandparent Kidney failure Social History Social History Social History: The patient lives in [place] with his mother. He has 1 daughter. He is now working at a busy local restaurant, washing dishes. He designates his mother, Michelle Carlin, as his surrogate decision maker and he wishes to be a full code. He is a former smoker and quit in 2011. He denies alcohol and drug use. Smoking status: Former smoker Second hand tobacco smoke exposure: No Alcohol intake: unknown Substance use: unknown Substance use type: does not use Do You Feel Safe in your Home?: Yes Lack of Transportation: No Lack of Food: Never True Current Housing: I Have Housing Concerned About Future Housing: No Difficulty Paying Gas/Electric Bills: No Difficulty Paying for Meds: No Currently Unemployed: No Education: High School Diploma/GED Difficulty w/ Childcare or Family Care: No Gender identity (if verbalized by the patient): Male Spiritual care concerns: No Agree to blood products: Yes Exam Narrative: General: Alert, awake, afebrile, in no acute distress. HEENT: PERRL, no rhinorrhea, no post nasal drip, oropharynx clear. Neck: Trachea midline, no JVD, no lymphadenopathy. Cardiovascular: Regular rate and rhythm, no murmurs, rubs or gallops, no peripheral edema, left upper chest PermCath in place. Respiratory: Clear to auscultation bilaterally, no tachypnea, no wheezing, no rhonchi, no rubs, no respiratory distress. Abdomen: Soft, nontender, nondistended, no rebound, no guarding, no peritoneal signs. Musculoskeletal: No joint swelling or deformity, normal muscle tone. Skin: No rashes or petechia, no signs of infection. Psychiatric: Alert and oriented, normal behavior and judgment for situation. Neurological: Alert and oriented to person, place, and time. Follows all commands. No focal deficits, speech is clear and fluent. Course Vital Signs Vital signs: Vital Signs Temperature 98.0 F 04/19/24 02:11 Pulse Rate 72 04/19/24 02:11 Respiratory Rate 16 04/19/24 02:11 Pulse Oximetry 100 04/19/24 02:11 Oxygen Delivery Room Air 04/19/24 02:11 Temperature 98.0 F 04/19/24 02:11 Pulse Rate 71 04/19/24 03:31 Respiratory Rate 28 H 04/19/24 03:31 Blood Pressure 150/104 H 04/19/24 03:19 Pulse Oximetry 99 04/19/24 03:31 Oxygen Delivery Room Air 04/19/24 02:11 Medical Decision Making MDM Narrative Medical decision making narrative: The patient was evaluated by myself in the emergency department. History is obtained from patient who is an independent historian and physical exam was performed. External medical records were reviewed at this time. IV was established and pertinent tests were ordered. EKG was obtained which revealed sinus rhythm at a rate of 74 beats per minute, no evidence of acute ischemia. EKG was independently interpreted by me and is currently pending official cardiology read. Laboratory results obtained revealing a creatinine of 14.72, BUN 71 which is around patient's baseline secondary to his history of end-stage renal disease. Potassium 6.2, magnesium 3.2. At this time, patient was started on medications for his hyperkalemia with insulin, dextrose, Lokelma, calcium gluconate and albuterol. Hypoglycemia protocol was initiated at this time. Differential diagnosis considerations include dialysis catheter amount function, hyperkalemia, infection, fluid overload. Comorbidities impacting this visit include history of end-stage renal disease on HD. I have evaluated and discussed social determinants of health with the patient that could potentially impact subsequent diagnosis and treatment plans. On repeat assessment of the patient, reevaluation revealed that the patient is doing well and is in no acute distress. Patient symptoms have remained stable since he arrived to our emergency department. Repeat vital signs were all reviewed and noted to be stable. Differential diagnosis and treatment plan were discussed with the patient at bedside. Patient agrees with discussion and after shared medical decision making agrees with admission. All questions were answered to the patient's satisfaction. Case was discussed with the on-call hospitalist Dr. Lagos at [address] Levine the on-call packing tractor machine operator who has seen the patient in the past was paged at this time to be notified regarding consultation and case was discussed with him over the phone at 0450. Vital Signs Vital Signs: Vital Signs Temperature 98.0 F 04/19/24 02:11 Pulse Rate 72 04/19/24 02:11 Respiratory Rate 16 04/19/24 02:11 Pulse Oximetry 100 04/19/24 02:11 Oxygen Delivery Room Air 04/19/24 02:11 Temperature 98.0 F 04/19/24 02:11 Pulse Rate 71 04/19/24 03:31 Respiratory Rate 28 H 04/19/24 03:31 Blood Pressure 150/104 H 04/19/24 03:19 Pulse Oximetry 99 04/19/24 03:31 Oxygen Delivery Room Air 04/19/24 02:11 Lab Data 04/19/24 03:19 04/19/24 03:19 Labs: Lab Results 04/19/24 Range/Units 03:19 WBC 5.7 (4.5-10.0) K/mm3 RBC 3.48 L (4.6-6.20) M/mm3 Hgb 10.1 L (14.0-18.0) g/dL Hct 32.7 L (42.0-52.0) % MCV 94.0 (80-100) fl MCH 29.0 (26-34) pg MCHC 30.9 L (32-36) g/dl RDW 17.5 H (11.5-14.5) % Plt Count 223 (150-375) k/mm3 MPV 10.4 (7.4-10.4) fl Immature Gran % (Auto) 0.4 (0-0.5) % Neut % (Auto) 60.9 (45.5-73.1) % Lymph % (Auto) 22.4 (18.3-44.2) % Treasure % (Auto) 14.0 H (2.6-8.5) % Eos % (Auto) 1.9 (0-4.4) % Baso % (Auto) 0.4 (0.2-1.2) % Lymph # (Auto) 1.28 (0.9-3.2) K/mm3 Treasure # (Auto) 0.8 H (0.1-0.6) K/mm3 Eos # (Auto) 0.1 (0-0.3) K/mm3 Baso # (Auto) 0.0 (0.0-0.1) K/mm3 Abs Immat Gran (auto) 0.02 (0.00-0.031) K/mm3 Absolute Neuts (auto) 3.5 (1.3-6.7) K/mm3 Absolute Nucleated RBC 0.000 (0.0-0.012) K/mm3 Nucleated RBC % 0.0 (0.0-0.2) % Sodium 135 L (137-145) mmol/L Potassium 6.2 H* (3.4-5.0) mmol/L Chloride 98 (98-107) mmol/L Carbon Dioxide 24 (22-30) mmol/L Anion Gap 13 H (4-12) mmol/L BUN 71 H D (9-20) mg/dL Creatinine 14.72 H (0.7-1.3) mg/dL Estim Creat Clear Calc 5 ml/min Estimated GFR 4 L (59 - ) Glucose 104 (65-110) mg/dL Calcium 9.2 (8.4-10.2) mg/dL Magnesium 3.2 H (1.6-2.3) mg/dL Total Bilirubin 0.5 (0.2-1.3) mg/dL AST 21 (17-59) U/L ALT 9 (6-50) U/L Alkaline Phosphatase 133 H (38-126) U/L Total Protein 7.0 (6.3-8.2) g/dL Albumin 4.0 (3.5-5.1) g/dL Discharge Plan Discharge Clinical Impression: ESRD needing dialysis, Hyperkalemia, Hemodialysis catheter malfunction Patient Disposition: Still a Patient Condition: Stable Time of Disposition: 04:14
[2024-04-19 03:45] LABS: Alanine Aminotransferase 9 U/L (6-50); Alkaline Phosphatase 133 U/L (38-126); Anion Gap 13 mmol/L (4-12); Aspartate Amino Transferase 21 U/L (17-59); Bilirubin,Total 0.5 mg/dL (0.2-1.3); Blood Urea Nitrogen 71 mg/dL (9-20); Calcium 9.2 mg/dL (8.4-10.2); Carbon Dioxide 24 mmol/L (22-30); Chloride 98 mmol/L (98-107); Estimated CRCL calculation 5 ml/min; Estimated Glomerular Filt Rate 4; Glucose 104 mg/dL (65-110); Magnesium 3.2 mg/dL (1.6-2.3); Potassium 6.2 mmol/L (3.4-5.0); Sodium 135 mmol/L (137-145)
--- NOTE | 2024-04-19 03:46 | ECG_ITS ---
Test Date: 2024-04-19 04:04:33 Measurements Intervals [place] Rate: 74 P: 140 UT: 213 QRS: -28 QRSD: 91 T: 150 QT: 426 QTc: 473 Interpretive Statements SINUS RHYTHM WITH FIRST DEGREE AV BLOCK POSSIBLE LEFT ATRIAL ENLARGEMENT [-0.1mV P WAVE IN V1/V2] BORDERLINE LEFT AXIS DEVIATION [QRS AXIS < -20] LEFT VENTRICULAR HYPERTROPHY AND ST-T CHANGE [VOLTAGE CRITERIA PLUS ST/T ABNORMALITY] LATERAL ST T-WAVE ABNORMALITIES, CONSIDER ISCHEMIA VERSUS HYPERTROPHY Compared to ECG 09/23/2023 15:15:20 IMPROVEMENT IN T WAVE ABNORMALITY IN LEADS V4-V6 Electronically Signed On 04-19-2024 15:19:48 WINDOWS SYSTEMS ENGINEER by Seferino Henry M.D.
--- NOTE | 2024-04-19 03:50 | PC.NURSE ---
given sandwich and juice per request. states okay to eat.
[2024-04-19] MEDS: ALBUTEROL SULFATE NEB 2.5 MG/3 ML INH 10 MG INHALATION (04:18)
[2024-04-19] MEDS: CALCIUM GLUCONATE 1,000 MG/10 ML VIAL 1000 MG IV PUSH (04:19)
[2024-04-19] MEDS: SODIUM ZIRCONIUM CYCLOSILICATE 10 GM POWD.PACK PO (04:19)
[2024-04-19] MEDS: DEXTROSE 50% 25 GM/50 ML SYRINGE IV PUSH ×3 (04:19→06:45)
[2024-04-19] MEDS: SODIUM POLYSTYRENE SULFONONATE 15 GM/60 ML BTL 30 GM PO (04:20)
[2024-04-19] MEDS: INSULIN HUMAN REGULAR (*BKC) 100 UNITS/ML 10 UNITS IV PUSH (04:20)
--- NOTE | 2024-04-19 05:10 | ADMIMU ---
0505: This patient, Pravin Carlin, was admitted to IMU status, and placed in Intensive Care Unit-9. Patient/family oriented to hospital policies and general routines including ID bracelet, bed and alarms, visiting hours, pain management, procedures, bathroom and other care routines, personal items, smoking policy, room service/diet, and visiting hours. Valuables list has been completed. Information on how to activate the Rapid Response Team has been discussed. Patient/Family are encouraged to report perceived risks to care and to ask questions if they do not understand what they are told or what they should do.
[2024-04-19 05:52] LABS: Glucose Point of Care 96 mg/dl (65-105)
[2024-04-19 05:52] LABS: Glucose Point of Care 55 mg/dl (65-105)
[2024-04-19] MEDS: hydrALAZINE HCL 20 MG/ML VIAL 10 MG IV PUSH (06:47)
[2024-04-19 06:52] LABS: Glucose Point of Care 69 mg/dl (65-105)
[2024-04-19 07:16] LABS: Anion Gap 11 mmol/L (4-12); Blood Urea Nitrogen 71 mg/dL (9-20); Carbon Dioxide 26 mmol/L (22-30); Chloride 99 mmol/L (98-107); Estimated CRCL calculation 5 ml/min; Estimated Glomerular Filt Rate 4; Glucose 49 mg/dL (65-110); Potassium 4.9 mmol/L (3.4-5.0); Sodium 136 mmol/L (137-145)
[2024-04-19 07:22] LABS: Glucose Point of Care 136 mg/dl (65-105)
[2024-04-19] MEDS: SEVELAMER CARBONATE 800 MG TABLET PO ×3 (08:10→17:44)
[2024-04-19] MEDS: NIFEdipine 30 MG TAB.ER.24 90 MG PO (08:10)
[2024-04-19] MEDS: cloNIDine HCL 0.1 MG TABLET 0.3 MG PO ×3 (08:10→17:43)
[2024-04-19] MEDS: MEGESTROL ACETATE (*CHEMO) 40 MG TABLET PO (08:10)
[2024-04-19] MEDS: carvediloL 25 MG TABLET PO ×2 (08:12→20:33)
[2024-04-19] MEDS: lisinopriL 20 MG TABLET 40 MG PO (08:12)
[2024-04-19] MEDS: PANTOPRAZOLE 40 MG TABLET PO (08:12)
[2024-04-19] MEDS: CALCIUM ACETATE 667 MG TABLET 1334 MG PO ×3 (08:14→17:43)
--- NOTE | 2024-04-19 08:15 | PM.IMHP ---
H&P: HPI History of Present Illness Date/Time: 04/19/24 08:15 Chief Complaint: Malfunction of dialysis catheter Narrative: Patient is a 48-year-old male with history of end-stage renal disease on hemodialysis Thursday, hypertension, GERD, present ED with a chief complaint of malfunction of dialysis catheter. Patient has end-stage renal disease on hemodialysis, patient's dialysis catheter is found have less output in past 3 weeks. his output is normally on 400 and it has been consistently around 250. Patient denies chest pain, shortness breast, cough, fever, chills, also denies headache, focal weakness, abdomen pain nausea vomiting diarrhea. Patient came to ED for evaluation treatment. Upon arrival in the ED, patient was afebrile, but has uncontrolled hypertension 176 /107 patient has tachypnea, pulse ox 95 on room air, CBC showed anemia hemoglobin 10.1 close baseline, hyponatremia 135, hyperkalemia 6.2, medicine 3.2,. I read EKG, EKG showed sinus rhythm, T-wave inverted lead 1 and aVL but this is not new finding comparing to previous EKGs, I read the chest x-ray, x-ray showed pulmonary congestion. Patient received calcium gluconate lokelma, dextrose with insulin push, repeated potassium 4.9 ER physician consulted general surgeon for dialysis catheter replacement and also consulted web marketing coordinator for dialysis. We admit patient for further evaluation and management PMFSH Past Medical History Medical History Volume overload Reflux esophagitis With duodenitis noted on EGD 04/29/[address] Rice. Secondary hyperparathyroidism of renal origin Hypertensive renal disease Anemia in CKD (chronic kidney disease) Pericardial effusion Moderate pericardial effusion noted by echo in 2018. History of noncompliance with medical treatment Chronic anemia Related to his renal failure. Severe hypertension With severe concentric LVH noted on echocardiogram in 2018. Congestive heart failure Echocardiogram in September 2017 showed diastolic dysfunction with ejection fraction of 55%. Coronary artery disease With history of [place]. Most recent heart catheterization was in June 2018 at [facility], requiring no intervention. End-stage renal disease on hemodialysis Patient of Dr. Candelario. He has dialysis Thursday, Thursday, and Thursday. Depression with anxiety Patient with major depressive disorder and generalized anxiety disorder. Acute uremia Fractures History of ankle fracture which was repaired surgically. Hypertension History of end stage renal disease Surgical History Surgical History History of ankle surgery ORIF at the age of 14. 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 Status post creation of arteriovenous fistula Left upper extremity. Family History Family History Grandparent Kidney failure Social History Social History Social History: The patient lives in [place] with his mother. He has 1 daughter. He is now working at a busy local restaurant, washing dishes. He designates his mother, Michelle Carlin, as his surrogate decision maker and he wishes to be a full code. He is a former smoker and quit in 2011. He denies alcohol and drug use. Smoking status: Former smoker Second hand tobacco smoke exposure: No Alcohol intake: never Substance use: never Substance use type: does not use Do You Feel Safe in your Home?: Yes Lack of Transportation: No Lack of Food: Never True Current Housing: I Have Housing Concerned About Future Housing: No Difficulty Paying Gas/Electric Bills: No Difficulty Paying for Meds: No Currently Unemployed: No Education: Decline to Answer Difficulty w/ Childcare or Family Care: No Gender identity (if verbalized by the patient): Male Spiritual care concerns: No Agree to blood products: Yes Meds Home Medications and Allergies Home Medications ?Medication ?Instructions ?Recorded ?Confirmed ?Type epoetin barrington 10,000 unit/mL 10,000 units IV PUSH MOWEFR #0 mL 04/30/19 04/19/24 Rx injection solution (Epogen) atorvastatin 20 mg tablet 20 mg PO HS #30 tabs 03/19/22 04/19/24 Rx calcium acetate(phosphat bind) 667 1,334 mg (2 x 667 mg) PO TIDWM #60 03/19/22 04/19/24 Rx mg capsule caps carvedilol 25 mg tablet 25 mg PO BID #60 tabs 03/19/22 04/19/24 Rx citalopram 20 mg tablet 20 mg PO DAILY #30 tabs 03/19/22 04/19/24 Rx clonidine HCl 0.3 mg tablet 0.3 mg PO TID #90 tabs 03/19/22 04/19/24 Rx escitalopram oxalate 10 mg tablet 10 mg PO DAILY #30 tabs 03/19/22 Rx hydralazine 100 mg tablet 100 mg PO Q8H #90 tabs 03/19/22 04/19/24 Rx hydroxyzine HCl 25 mg tablet 25 mg PO BID PRN Itching #30 tabs 03/19/22 04/19/24 Rx lisinopril 40 mg tablet 40 mg PO DAILY #30 tabs 03/19/22 04/19/24 Rx nifedipine 90 mg tablet,extended 90 mg PO DAILY #30 tabs 03/19/22 04/19/24 Rx release 24 hr pantoprazole 40 mg tablet,delayed 40 mg PO QAM #30 tabs 03/19/22 04/19/24 Rx release carvedilol 25 mg tablet 25 mg PO BID 05/17/23 04/19/24 History cholecalciferol (vitamin D3) 1,250 1,250 mcg PO WEEKLY 05/17/23 04/19/24 History mcg (50,000 unit) capsule citalopram 20 mg tablet 20 mg PO DAILY 05/17/23 04/19/24 History clonidine HCl 0.3 mg tablet 0.3 mg PO TID 05/17/23 04/19/24 History hydralazine 100 mg tablet 100 mg PO TID 05/17/23 04/19/24 History hydroxyzine HCl 25 mg tablet 25 mg PO BID PRN Itching 05/17/23 04/19/24 History lisinopril 40 mg tablet 40 mg PO DAILY 05/17/23 04/19/24 History megestrol 40 mg tablet 40 mg PO DAILY 05/17/23 04/19/24 History nifedipine 90 mg tablet,extended 90 mg PO DAILY 05/17/23 04/19/24 History release pantoprazole 40 mg tablet,delayed 40 mg PO DAILY 05/17/23 04/19/24 History release sevelamer carbonate 800 mg tablet 800 mg PO TID 05/17/23 04/19/24 History Allergies Allergy/AdvReac Type Severity Reaction Status Date / Time shellfish derived Allergy Unknown Unknown Verified 09/23/23 13:47 shrimp Allergy Unknown Unknown Verified 09/23/23 13:47 venom-honey bee Allergy Unknown Unknown Verified 09/23/23 13:47 Cat Dander Allergy Unknown Unknown Uncoded 09/23/23 13:47 Vital Signs Vital Signs - 24 hr 04/19/24 02:11 04/19/24 02:18 04/19/24 02:19 Temperature 98.0 F Pulse Rate 72 72 Respiratory Rate 16 27 H Blood Pressure 157/102 H Pulse Oximetry 100 100 Oxygen Delivery Room Air 04/19/24 02:19 04/19/24 02:30 04/19/24 02:31 Temperature Pulse Rate 72 72 72 Respiratory Rate 26 H 25 H 24 H Blood Pressure 157/102 H 162/105 H Pulse Oximetry 99 99 100 Oxygen Delivery 04/19/24 02:45 04/19/24 02:54 04/19/24 03:00 Temperature Pulse Rate 74 74 74 Respiratory Rate 27 H 23 H 23 H Blood Pressure 161/104 H Pulse Oximetry 100 98 Oxygen Delivery 04/19/24 03:15 04/19/24 03:19 04/19/24 03:31 Temperature Pulse Rate 74 73 71 Respiratory Rate 21 H 23 H 28 H Blood Pressure 150/104 H Pulse Oximetry 100 99 Oxygen Delivery 04/19/24 05:30 04/19/24 06:00 04/19/24 06:00 Temperature 97.9 F Pulse Rate 86 86 Respiratory Rate 20 Blood Pressure 176/107 H Pulse Oximetry 95 Oxygen Delivery Room Air 04/19/24 06:08 04/19/24 06:45 04/19/24 08:12 Temperature Pulse Rate 87 Respiratory Rate Blood Pressure 176/107 H 163/95 H Pulse Oximetry Oxygen Delivery Exam Narrative: GENERAL: Pleasant, in no acute distress. Well-nourished. - EYES: EOMI. Anicteric. - HENT: Moist mucous membranes. - LUNGS: Coarse breath sound bilateral base, tachypnea - CARDIOVASCULAR: Regular rate and rhythm. No murmur. No JVD. - ABDOMEN: Soft, non-tender and non-distended. No palpable masses. - EXTREMITIES: No edema. Peripheral pulses 2+. Non-tender. - NEUROLOGIC: No focal neurological deficits. CN II-XII grossly intact. - PSYCHIATRIC: Awake, Alert and oriented x 3. Appropriate mood and affect. - SKIN: No rashes or lesions. Warm. - LYMPH: No cervical lymphadenopathy. H&P: Results Labs Labs: Short CBC 04/19/24 Range/Units 03:19 WBC 5.7 (4.5-10.0) K/mm3 Hgb 10.1 L (14.0-18.0) g/dL Hct 32.7 L (42.0-52.0) % Plt Count 223 (150-375) k/mm3 BMP 04/19/24 04/19/24 03:19 05:19 Sodium 135 L 136 L Potassium 6.2 H* 4.9 Chloride 98 99 Carbon Dioxide 24 26 BUN 71 H D 71 H Creatinine 14.72 H 15.49 H Glucose 104 49 L* Calcium 9.2 10.0 Liver Function 04/19/24 Range/Units 03:19 Total Bilirubin 0.5 (0.2-1.3) mg/dL AST 21 (17-59) U/L ALT 9 (6-50) U/L Alkaline Phosphatase 133 H (38-126) U/L Albumin 4.0 (3.5-5.1) g/dL Assessment and Plan Assessment and plan (1) Uncontrolled hypertension: Code(s): I10 - Essential (primary) hypertension Status: Chronic (2) Other fluid overload: Code(s): E87.79 - Other fluid overload Status: Acute (3) Hyperkalemia: Code(s): E87.5 - Hyperkalemia Status: Acute (4) Dialysis catheter clot or failure: Status: Acute Plan Dialysis catheter failure patient's dialysis catheter is found have less output in past 3 weeks. his output is normally on 400 and it has been consistently around 250. Consulted general surgeon for catheter replacement End-stage renal disease on hemodialysis, hyperkalemia, fluid overloaded Patient on dialysis Thursday. Patient has catheter failure about 3 weeks Upon arrival in the ED, patient was found have acute hypokalemia, uncontrolled hypertension, fluid overload on chest x-ray Patient received calcium gluconate lokelma, dextrose with insulin push, repeated potassium 4.9 Patient needs dialysis today after catheter replacement ER physician consulted the web marketing coordinator Follow-up BMP Uncontrolled hypertension, Due to fluid overload Continue home medication lisinopril 40 mg daily p.o., nifedipine 90 mg daily p.o., hydralazine 100 mg q.8 hours p.o., clonidine 0.3 mg t.i.d. p.o., Patient needs dialysis per web marketing coordinator Chronic anemia No obvious bleeding Likely resulting from chronic renal failure Patient is on Epogen GERD Continue Protonix 40 mg daily p.o.
--- NOTE | 2024-04-19 08:38 | P.PNIM_ITS ---
Progress Note: A&P Assessment and Plan (1) Hemodialysis catheter malfunction: Code(s): T82.41XA - Breakdown (mechanical) of vascular dialysis catheter, initial encounter Status: Acute Assessment and Plan: patient states that he has a tunneled dialysis catheter for last 3 years. Over last 1 month patient has had issues with low-flow from the dialysis catheter. His last treatment was on Thursday where a prolonged treatment was done at a slow rate. Patient states that his insurance is not accepted by any physician hence he was told to come to the hospital. He has a fistula which has not been functional for long time. I will consult General surgery for evaluation of his tunneled dialysis catheter (2) Hypertension: Code(s): I10 - Essential (primary) hypertension Status: Chronic Assessment and Plan: patient has hypertension requiring multiple medications. Continue home treatment of Procardia lisinopril hydralazine Coreg and clonidine monitor and adjust accordingly (3) ESRD needing dialysis: Code(s): N18.6 - End stage renal disease; Z99.2 - Dependence on renal dialysis Status: Acute Assessment and Plan: consult nephrology for setting up dialysis. Hyper kalemia treatment as below (4) Hyperkalemia: Code(s): E87.5 - Hyperkalemia Status: Acute Assessment and Plan: resolved with Kayexalate and Lokelma treatment I anticipate patient will be dialyzed today (5) Hypoglycemia: Code(s): E16.2 - Hypoglycemia, unspecified Status: Acute Assessment and Plan: likely secondary to Michael the patient received for his hyperkalemia. Now it has resolved. Monitor Plan DVT prophylaxis - I anticipate patient will be ambulating. SCDs while in the bed Stress ulcer prophylaxis - continue home PPI Nutrition - renal diet or Code Status - Full Code Subjective Date/time seen: 04/19/24 Overnight events reviewed. Afebrile on room air he states he feels tired. Blood pressure elevate sinus rhythm on the monitor Patient denies fever, chest pain, shortness of breath, cough, nausea vomiting, abdominal pain,, diarrhea, headache or constipation.. all other systems were reviewed and negative Review of Systems Review of Systems: All systems reviewed & are unremarkable except as noted in HPI and below ( HPI) Exam Narrative: General: Pt is alert awake and in NAD Lungs/Chest: Trachea central Clear BS B/L, No crackles or wheezing. Cardiac: RRR. Normal S1 S2. No murmurs Circulation: Pedal pulses are intact and symmetrical. Abdomen: Normal bowel sounds.. Soft. NT. ND. Extremities: No clubbing, cyanosis or edema. Warm : Bone in place Neurologic: Follows commands. Moves all 4 extremities PERRL AO times Skin: tunneled dialysis catheter in left subclavian site. Scars from multiple past catheter insertion around the neck, catheter site looks clean with no redness Objective Data Vital Signs Vital Signs: Vital Signs - 24 hr 04/19/24 02:11 04/19/24 02:18 04/19/24 02:19 Temperature 36.7 C Pulse Rate 72 72 Respiratory Rate 16 27 H Blood Pressure 157/102 H Pulse Oximetry 100 100 Oxygen Delivery Room Air 04/19/24 02:19 04/19/24 02:30 04/19/24 02:31 Temperature Pulse Rate 72 72 72 Respiratory Rate 26 H 25 H 24 H Blood Pressure 157/102 H 162/105 H Pulse Oximetry 99 99 100 Oxygen Delivery 04/19/24 02:45 04/19/24 02:54 04/19/24 03:00 Temperature Pulse Rate 74 74 74 Respiratory Rate 27 H 23 H 23 H Blood Pressure 161/104 H Pulse Oximetry 100 98 Oxygen Delivery 04/19/24 03:15 04/19/24 03:19 04/19/24 03:31 Temperature Pulse Rate 74 73 71 Respiratory Rate 21 H 23 H 28 H Blood Pressure 150/104 H Pulse Oximetry 100 99 Oxygen Delivery 04/19/24 05:30 04/19/24 06:00 04/19/24 06:00 Temperature 36.6 C Pulse Rate 86 86 Respiratory Rate 20 Blood Pressure 176/107 H Pulse Oximetry 95 Oxygen Delivery Room Air 04/19/24 06:08 04/19/24 06:45 04/19/24 08:12 Temperature Pulse Rate 87 Respiratory Rate Blood Pressure 176/107 H 163/95 H Pulse Oximetry Oxygen Delivery Meds/Results Medications: Active Medications Generic Name Dose Route Start Last Admin Trade Name Freq PRN Reason Stop Dose Admin Atorvastatin Calcium 20 mg 04/19/24 21:00 Atorvastatin 20 Mg Tablet PO HS [facility] Calcium Acetate 1,334 mg 04/19/24 08:00 04/19/24 08:14 Calcium Acetate 667 Mg Tablet PO 1,334 mg TIDWM [facility] Administration Carvedilol 25 mg 04/19/24 09:00 04/19/24 08:12 Carvedilol 25 Mg Tablet PO 25 mg Q12HR [place] Administration Clonidine HCl 0.3 mg 04/19/24 09:00 04/19/24 08:10 Clonidine Hcl 0.1 Mg Tablet PO 0.3 mg TID [place] Administration Dextrose 12.5 gm 04/19/24 04:02 04/19/24 06:45 Dextrose 50% 25 Gm/50 Ml Syringe IV PUSH 12.5 gm PRN PRN Administration Hypoglycemia Protocol Glucagon 1 mg 04/19/24 04:02 Glucagon For Inj 1 Mg Vial IM PRN PRN Hypoglycemia Protocol Glucose 15 gm 04/19/24 04:02 Glucose Oral Gel 15 Gm Of Glucse In 37.5 Gm Tube PO PRN PRN Hypoglycemia Protocol Hydralazine HCl 100 mg 04/19/24 06:45 04/19/24 08:23 Hydralazine Hcl 50 Mg Tablet PO Not Given Q8HR [place] Dextrose 1,000 mls @ 100 mls/hr 04/19/24 04:02 Dextrose 5% 1,000 Ml IVPB PRN PRN Hypoglycemia Protocol Lisinopril 40 mg 04/19/24 09:00 04/19/24 08:12 Lisinopril 20 Mg Tablet PO 40 mg DAILY [place] Administration Megestrol Acetate 40 mg 04/19/24 09:00 04/19/24 08:10 Megestrol Acetate (*Chemo) 40 Mg Tablet PO 40 mg DAILY [place] Administration Nifedipine 90 mg 04/19/24 09:00 04/19/24 08:10 Nifedipine 30 Mg Tab.Er.24 PO 90 mg DAILY [place] Administration Pantoprazole Sodium 40 mg 04/19/24 09:00 04/19/24 08:12 Pantoprazole 40 Mg Tablet PO 40 mg DAILY [place] Administration Sevelamer Carbonate 800 mg 04/19/24 09:00 04/19/24 08:10 Sevelamer Carbonate 800 Mg Tablet PO 800 mg TID [place] Administration Labs Labs: Laboratory Results - last 24 hr 04/19/24 04/19/24 04/19/24 03:19 05:17 05:19 WBC 5.7 RBC 3.48 L Hgb 10.1 L Hct 32.7 L MCV 94.0 MCH 29.0 MCHC 30.9 L RDW 17.5 H Plt Count 223 MPV 10.4 Immature Gran % (Auto) 0.4 Neut % (Auto) 60.9 Lymph % (Auto) 22.4 [place] % (Auto) 14.0 H Eos % (Auto) 1.9 Baso % (Auto) 0.4 Lymph # (Auto) 1.28 [place] # (Auto) 0.8 H Eos # (Auto) 0.1 Baso # (Auto) 0.0 Abs Immat Gran (auto) 0.02 Absolute Neuts (auto) 3.5 Absolute Nucleated RBC 0.000 Nucleated RBC % 0.0 Sodium 135 L 136 L Potassium 6.2 H* 4.9 Chloride 98 99 Carbon Dioxide 24 26 Anion Gap 13 H 11 BUN 71 H D 71 H Creatinine 14.72 H 15.49 H Estim Creat Clear Calc 5 5 Estimated GFR 4 L 4 L Glucose 104 49 L* POC Capillary Glucose 55 L* Calcium 9.2 10.0 Magnesium 3.2 H Total Bilirubin 0.5 AST 21 ALT 9 Alkaline Phosphatase 133 H Total Protein 7.0 Albumin 4.0 04/19/24 04/19/24 04/19/24 05:38 06:41 07:17 WBC RBC Hgb Hct MCV MCH MCHC RDW Plt Count MPV Immature Gran % (Auto) Neut % (Auto) Lymph % (Auto) [place] % (Auto) Eos % (Auto) Baso % (Auto) Lymph # (Auto) [place] # (Auto) Eos # (Auto) Baso # (Auto) Abs Immat Gran (auto) Absolute Neuts (auto) Absolute Nucleated RBC Nucleated RBC % Sodium Potassium Chloride Carbon Dioxide Anion Gap BUN Creatinine Estim Creat Clear Calc Estimated GFR Glucose POC Capillary Glucose 96 69 136 H Calcium Magnesium Total Bilirubin AST ALT Alkaline Phosphatase Total Protein Albumin Quality VTE Prophylaxis VTE prophylaxis: mechanical ordered Hospitalist MIPS Advance Care Plan I have confirmed that the patient's Advanced Care Plan is present, code status is documented, or surrogate decision maker is listed in patient medical record.: Yes Medication Reconciliation I have utilized all available resources to obtain, update and review the patients current medications (includes all prescriptions, OTC, herbals, cannabis, and nutritional supplements).: Yes
[2024-04-19 09:23] LABS: NT Pro B Type Natriuretic Pept > 30000 pg/mL (19.9-100)
[2024-04-19 09:24] LABS: Hepatitis B Surface Antigen Negative (Negative)
[2024-04-19 09:41] LABS: Hepatitis B Surface Anti Res Negative
--- NOTE | 2024-04-19 09:43 | P.CONNP_ITS ---
Assessment and Plan Assessment and plan (1) Hemodialysis catheter malfunction: Code(s): T82.41XA - Breakdown (mechanical) of vascular dialysis catheter, initial encounter Status: Acute Assessment and Plan: * End-stage renal disease * Dysunctional dialysis catheter * Hypertensive renal disease * With anemia of chronic kidney disease * Secondary hyperparathyroid Plan: - (2) End-stage renal disease on hemodialysis: Code(s): N18.6 - End stage renal disease; Z99.2 - Dependence on renal dialysis Status: Acute History of Present Illness Reason for Consult Consult date: 04/19/24 Reason for consult: end stage renal disease and Other Requesting physician: Jacob Levine MD Chief Complaint Chief complaint: ESRD needs HD, Hyperkalemia History of Present Illness Narrative: 48-year-old male who has a history of hypertensive renal disease, ESRD on a Thursday, , Thursday schedule. Last dialysis was on Thursday with a blood flow 300. No uremic features. However he has hyperkalemia. His potassium resolved with medical treatment. He has DN creatinine in mind high. She is not short of breath. No nausea vomiting. There is no lower extremity swelling. No abdominal pain. No fevers or chills. Review of Systems 2 Review of Systems: Negative for rest PMFSH Past Medical History Medical History Volume overload Reflux esophagitis With duodenitis noted on EGD 04/29/[address] Rice. Secondary hyperparathyroidism of renal origin Hypertensive renal disease Anemia in CKD (chronic kidney disease) Pericardial effusion Moderate pericardial effusion noted by echo in 2018. History of noncompliance with medical treatment Chronic anemia Related to his renal failure. Severe hypertension With severe concentric LVH noted on echocardiogram in 2018. Congestive heart failure Echocardiogram in September 2017 showed diastolic dysfunction with ejection fraction of 55%. Coronary artery disease With history of MA. Most recent heart catheterization was in June 2018 at [facility], requiring no intervention. End-stage renal disease on hemodialysis Patient of Dr. Candelario. He has dialysis Thursday, Thursday, and Thursday. Depression with anxiety Patient with major depressive disorder and generalized anxiety disorder. Acute uremia Fractures History of ankle fracture which was repaired surgically. Hypertension History of end stage renal disease Surgical History Surgical History History of ankle surgery ORIF at the age of 14. 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 Status post creation of arteriovenous fistula Left upper extremity. Family History Family History Grandparent Kidney failure Social History Social History Social History: The patient lives in [place] with his mother. He has 1 daughter. 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 He designates his mother, Michelle Carlin, as his surrogate decision maker and he wishes to be a full code. He is a former smoker and quit in 2011. He denies alcohol and drug use. Smoking status: Former smoker Second hand tobacco smoke exposure: No Alcohol intake: never Substance use: never Substance use type: does not use Do You Feel Safe in your Home?: Yes Lack of Transportation: No Lack of Food: Never True Current Housing: I Have Housing Concerned About Future Housing: No Difficulty Paying Gas/Electric Bills: No Difficulty Paying for Meds: No Currently Unemployed: No Education: Decline to Answer Difficulty w/ Childcare or Family Care: No Gender identity (if verbalized by the patient): Male Spiritual care concerns: No Agree to blood products: Yes Meds Home Medications and Allergies Home Medications ?Medication ?Instructions ?Recorded ?Confirmed ?Type epoetin [place] 10,000 unit/mL 10,000 units IV PUSH MOWEFR #0 mL 04/30/19 04/19/24 Rx injection solution (Epogen) atorvastatin 20 mg tablet 20 mg PO HS #30 tabs 03/19/22 04/19/24 Rx calcium acetate(phosphat bind) 667 1,334 mg (2 x 667 mg) PO TIDWM #60 03/19/22 04/19/24 Rx mg capsule caps carvedilol 25 mg tablet 25 mg PO BID #60 tabs 03/19/22 04/19/24 Rx citalopram 20 mg tablet 20 mg PO DAILY #30 tabs 03/19/22 04/19/24 Rx clonidine HCl 0.3 mg tablet 0.3 mg PO TID #90 tabs 03/19/22 04/19/24 Rx escitalopram oxalate 10 mg tablet 10 mg PO DAILY #30 tabs 03/19/22 Rx hydralazine 100 mg tablet 100 mg PO Q8H #90 tabs 03/19/22 04/19/24 Rx hydroxyzine HCl 25 mg tablet 25 mg PO BID PRN Itching #30 tabs 03/19/22 04/19/24 Rx lisinopril 40 mg tablet 40 mg PO DAILY #30 tabs 03/19/22 04/19/24 Rx nifedipine 90 mg tablet,extended 90 mg PO DAILY #30 tabs 03/19/22 04/19/24 Rx release 24 hr pantoprazole 40 mg tablet,delayed 40 mg PO QAM #30 tabs 03/19/22 04/19/24 Rx release carvedilol 25 mg tablet 25 mg PO BID 05/17/23 04/19/24 History cholecalciferol (vitamin D3) 1,250 1,250 mcg PO WEEKLY 05/17/23 04/19/24 History mcg (50,000 unit) capsule citalopram 20 mg tablet 20 mg PO DAILY 05/17/23 04/19/24 History clonidine HCl 0.3 mg tablet 0.3 mg PO TID 05/17/23 04/19/24 History hydralazine 100 mg tablet 100 mg PO TID 05/17/23 04/19/24 History hydroxyzine HCl 25 mg tablet 25 mg PO BID PRN Itching 05/17/23 04/19/24 History lisinopril 40 mg tablet 40 mg PO DAILY 05/17/23 04/19/24 History megestrol 40 mg tablet 40 mg PO DAILY 05/17/23 04/19/24 History nifedipine 90 mg tablet,extended 90 mg PO DAILY 05/17/23 04/19/24 History release pantoprazole 40 mg tablet,delayed 40 mg PO DAILY 05/17/23 04/19/24 History release sevelamer carbonate 800 mg tablet 800 mg PO TID 05/17/23 04/19/24 History Allergies Allergy/AdvReac Type Severity Reaction Status Date / Time shellfish derived Allergy Unknown Unknown Verified 09/23/23 13:47 shrimp Allergy Unknown Unknown Verified 09/23/23 13:47 venom-honey bee Allergy Unknown Unknown Verified 09/23/23 13:47 Cat Dander Allergy Unknown Unknown Uncoded 06/19/24 13:47 Vital Signs Vital Signs - 24 hr 04/19/24 02:11 04/19/24 02:18 04/19/24 02:19 Temperature 36.7 C Pulse Rate 72 72 Respiratory Rate 16 27 H Blood Pressure 157/102 H Pulse Oximetry 100 100 Oxygen Delivery Room Air 04/19/24 02:19 04/19/24 02:30 04/19/24 02:31 Temperature Pulse Rate 72 72 72 Respiratory Rate 26 H 25 H 24 H Blood Pressure 157/102 H 162/105 H Pulse Oximetry 99 99 100 Oxygen Delivery 04/19/24 02:45 04/19/24 02:54 04/19/24 03:00 Temperature Pulse Rate 74 74 74 Respiratory Rate 27 H 23 H 23 H Blood Pressure 161/104 H Pulse Oximetry 100 98 Oxygen Delivery 04/19/24 03:15 04/19/24 03:19 04/19/24 03:31 Temperature Pulse Rate 74 73 71 Respiratory Rate 21 H 23 H 28 H Blood Pressure 150/104 H Pulse Oximetry 100 99 Oxygen Delivery 04/19/24 05:30 04/19/24 06:00 04/19/24 06:00 Temperature 36.6 C Pulse Rate 86 86 Respiratory Rate 20 Blood Pressure 176/107 H Pulse Oximetry 95 Oxygen Delivery Room Air 04/19/24 06:08 04/19/24 06:45 04/19/24 08:12 Temperature Pulse Rate 87 Respiratory Rate Blood Pressure 176/107 H 163/95 H Pulse Oximetry Oxygen Delivery Exam 2 Const: General: cooperative, healthy appearing and comfortable HENMT: Head: normal to inspection, normocephalic and atraumatic Eyes: Visual Benson: normal visual benson by confrontation Conjunctivae: n ormal conjunctivae Sclera: normal sclerae Neck: Neck: supple and nontender Chest: Chest palpation & inspection: normal inspection of the chest Resp: Auscultation: clear to auscultation bilaterally, no crackles and no rales Cardio: Jugular venous distension: no JVD Rate: regular rate Rhythm: r egular rhythm GI: GI Palp: No abdominal tenderness and Yes Soft to palpation Neuro: General: oriented to person, oriented to place, oriented to time and tone normal Psych: Appearance: grossly normal Mental Status: mental status grossly normal Speech and movement: Normal speech and movement present Judgement: Good judgement present (Psych) Results Lab Results 04/19/24 03:19 04/19/24 05:19 Lab results: Most recent lab results Calcium 10.0 mg/dL (8.4-10.2) 04/19/24 05:19 Magnesium 3.2 mg/dL (1.6-2.3) H 04/19/24 03:19
[2024-04-19] MEDS: ALTEPLASE 2 MG VIAL (CATHFLO) INTRACATH (11:21)
[2024-04-19 11:52] LABS: Glucose Point of Care 119 mg/dl (65-105)
--- NOTE | 2024-04-19 11:53 | P.CONGS_ITS ---
Assessment and Plan Assessment and plan (1) Hemodialysis catheter malfunction: Code(s): T82.41XA - Breakdown (mechanical) of vascular dialysis catheter, initial encounter Status: Acute Assessment and Plan: * The patient has ESRD on hemodialysis with limited vascular access. He has had an AV fistula in the past that failed, and has been receiving hemodialysis via tunneled dialysis catheters over the past few years. He currently has a left subclavian tunneled dialysis catheter that has been in place reportedly for 3 years and has recently had reduced blood flow during his dialysis treatments. I discussed the case with Nephrology, who is going to attempt to use a declotting agent and see if this improves blood flow. They will try to dialyze him later today. If this does not help with blood flow, they will request replacement of tunneled hemodialysis catheter. We will continue to follow along. (2) End-stage renal disease on hemodialysis: Code(s): N18.6 - End stage renal disease; Z99.2 - Dependence on renal dialysis Status: Acute (3) Uncontrolled hypertension: Code(s): I10 - Essential (primary) hypertension Status: Chronic (4) Chronic anemia: Code(s): D64.9 - Anemia, unspecified Status: Acute Plan I have discussed the patient's case and plan of care with Dr. Healy. Thank you for allowing us to see the patient in consultation and we will continue to follow along with you. History of Present Illness Consult details Consult date: 04/19/24 Reason for consult: other (Hemodialysis catheter malfunction) Requesting physician: Otoniel Townsend MD Narrative: This is a 48-year-old man with PMH of uncontrolled hypertension, end-stage renal disease on hemodialysis, and multiple other medical problems, who we have been asked to see in surgical consultation for malfunctioning hemodialysis catheter. He is currently seen in the ICU as IMU overflow. He reports over the past month his dialysis catheter has not been functioning well. His blood flow has been lower during dialysis recently. He has a left subclavian tunneled dialysis catheter in place mid, which has reportedly been there for 3 years. He has a history of AV fistula that has failed about 5 years ago. He during longer has any upper extremity access and has been receiving hemodialysis via tunneled dialysis catheters over the past few years due to limited access. Due to the rescheduled lower blood flow during dialysis, he was instructed to go to the ER for evaluation with a malfunctioning hemodialysis catheter. Workup showed hyperkalemia and evidence of his end-stage renal disease. His hyperkalemia has been treated and potassium is down to 4.9. Nephrology is following and is going to attempt hemodialysis today. Stable reportedly tried E clotting agent and see if this improves blood flow. Review of Systems 2 Review of Systems: All systems reviewed & are unremarkable except as noted in HPI and below PMFSH Past Medical History Medical History Volume overload Reflux esophagitis With duodenitis noted on EGD 04/29/[address] Rice. Secondary hyperparathyroidism of renal origin Hypertensive renal disease Anemia in CKD (chronic kidney disease) Pericardial effusion Moderate pericardial effusion noted by echo in 2018. History of noncompliance with medical treatment Chronic anemia Related to his renal failure. Severe hypertension With severe concentric LVH noted on echocardiogram in 2018. Congestive heart failure Echocardiogram in September 2017 showed diastolic dysfunction with ejection fraction of 55%. Coronary artery disease With history of AK. Most recent heart catheterization was in June 2018 at [facility], requiring no intervention. End-stage renal disease on hemodialysis Patient of Dr. Candelario. He has dialysis Thursday, Thursday, and Thursday. Depression with anxiety Patient with major depressive disorder and generalized anxiety disorder. Acute uremia Fractures History of ankle fracture which was repaired surgically. Hypertension History of end stage renal disease Surgical History Surgical History History of ankle surgery ORIF at the age of 14. 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 Status post creation of arteriovenous fistula Left upper extremity. Family History Family History Grandparent Kidney failure Social History Social History Social History: The patient lives in [place] with his mother. He has 1 daughter. He is now working at a busy local restaurant, washing dishes. He designates his mother, Michelle Carlin, as his surrogate decision maker and he wishes to be a full code. He is a former smoker and quit in 2011. He denies alcohol and drug use. Smoking status: Former smoker Second hand tobacco smoke exposure: No Alcohol intake: never Substance use: never Substance use type: does not use Do You Feel Safe in your Home?: Yes Lack of Transportation: No Lack of Food: Never True Current Housing: I Have Housing Concerned About Future Housing: No Difficulty Paying Gas/Electric Bills: No Difficulty Paying for Meds: No Currently Unemployed: No Education: Decline to Answer Difficulty w/ Childcare or Family Care: No Gender identity (if verbalized by the patient): Male Spiritual care concerns: No Agree to blood products: Yes Meds Home Medications and Allergies Home Medications ?Medication ?Instructions ?Recorded ?Confirmed ?Type epoetin barrington 10,000 unit/mL 10,000 units IV PUSH MOWEFR #0 mL 04/30/19 04/19/24 Rx injection solution (Epogen) atorvastatin 20 mg tablet 20 mg PO HS #30 tabs 03/19/22 04/19/24 Rx calcium acetate(phosphat bind) 667 1,334 mg (2 x 667 mg) PO TIDWM #60 03/19/22 04/19/24 Rx mg capsule caps carvedilol 25 mg tablet 25 mg PO BID #60 tabs 03/19/22 04/19/24 Rx citalopram 20 mg tablet 20 mg PO DAILY #30 tabs 03/19/22 04/19/24 Rx clonidine HCl 0.3 mg tablet 0.3 mg PO TID #90 tabs 03/19/22 04/19/24 Rx escitalopram oxalate 10 mg tablet 10 mg PO DAILY #30 tabs 03/19/22 Rx hydralazine 100 mg tablet 100 mg PO Q8H #90 tabs 03/19/22 04/19/24 Rx hydroxyzine HCl 25 mg tablet 25 mg PO BID PRN Itching #30 tabs 03/19/22 04/19/24 Rx lisinopril 40 mg tablet 40 mg PO DAILY #30 tabs 03/19/22 04/19/24 Rx nifedipine 90 mg tablet,extended 90 mg PO DAILY #30 tabs 03/19/22 04/19/24 Rx release 24 hr pantoprazole 40 mg tablet,delayed 40 mg PO QAM #30 tabs 03/19/22 04/19/24 Rx release carvedilol 25 mg tablet 25 mg PO BID 05/17/23 04/19/24 History cholecalciferol (vitamin D3) 1,250 1,250 mcg PO WEEKLY 05/17/23 04/19/24 History mcg (50,000 unit) capsule citalopram 20 mg tablet 20 mg PO DAILY 05/17/23 04/19/24 History clonidine HCl 0.3 mg tablet 0.3 mg PO TID 05/17/23 04/19/24 History hydralazine 100 mg tablet 100 mg PO TID 05/17/23 04/19/24 History hydroxyzine HCl 25 mg tablet 25 mg PO BID PRN Itching 05/17/23 04/19/24 History lisinopril 40 mg tablet 40 mg PO DAILY 05/17/23 04/19/24 History megestrol 40 mg tablet 40 mg PO DAILY 05/17/23 04/19/24 History nifedipine 90 mg tablet,extended 90 mg PO DAILY 05/17/23 04/19/24 History release pantoprazole 40 mg tablet,delayed 40 mg PO DAILY 05/17/23 04/19/24 History release sevelamer carbonate 800 mg tablet 800 mg PO TID 05/17/23 04/19/24 History Allergies Allergy/AdvReac Type Severity Reaction Status Date / Time shellfish derived Allergy Unknown Unknown Verified 09/23/23 13:47 shrimp Allergy Unknown Unknown Verified 09/23/23 13:47 venom-honey bee Allergy Unknown Unknown Verified 09/23/23 13:47 Cat Dander Allergy Unknown Unknown Uncoded 09/23/23 13:47 Vital Signs Vital Signs - 24 hr 04/19/24 02:11 04/19/24 02:18 04/19/24 02:19 Temperature 98.0 F Pulse Rate 72 72 Respiratory Rate 16 27 H Blood Pressure 157/102 H Pulse Oximetry 100 100 Oxygen Delivery Room Air 04/19/24 02:19 04/19/24 02:30 04/19/24 02:31 Temperature Pulse Rate 72 72 72 Respiratory Rate 26 H 25 H 24 H Blood Pressure 157/102 H 162/105 H Pulse Oximetry 99 99 100 Oxygen Delivery 04/19/24 02:45 04/19/24 02:54 04/19/24 03:00 Temperature Pulse Rate 74 74 74 Respiratory Rate 27 H 23 H 23 H Blood Pressure 161/104 H Pulse Oximetry 100 98 Oxygen Delivery 04/19/24 03:15 04/19/24 03:19 04/19/24 03:31 Temperature Pulse Rate 74 73 71 Respiratory Rate 21 H 23 H 28 H Blood Pressure 150/104 H Pulse Oximetry 100 99 Oxygen Delivery 04/19/24 05:30 04/19/24 06:00 04/19/24 06:00 Temperature 97.9 F Pulse Rate 86 86 Respiratory Rate 20 Blood Pressure 176/107 H Pulse Oximetry 95 Oxygen Delivery Room Air 04/19/24 06:08 04/19/24 06:45 04/19/24 08:12 Temperature Pulse Rate 87 Respiratory Rate Blood Pressure 176/107 H 163/95 H Pulse Oximetry Oxygen Delivery 04/19/24 11:34 Temperature 98.2 F Pulse Rate 79 Respiratory Rate 23 H Blood Pressure 191/116 H Pulse Oximetry 96 Oxygen Delivery Exam 2 Const: General: comfortable and no acute distress Nutritional Appearance: a verage body habitus Orientation/consciousness: patient oriented x3 HENMT: Head: normocephalic and atraumatic Ears: hearing grossly normal bilaterally Mouth: Yes moist mucous membranes Eyes: General: appearance normal, both eyes and all related structures P upils: Equal, round and reactive pupils present Neck: Neck: normal visual inspection and full ROM Other: Small scars noted on the right neck and chest Chest: Other: Tunneled hemodialysis catheter in the left chest Resp: Effort & Inspection: no respiratory distress Auscultation: clear to auscultation bilaterally Cardio: Rate: regular rate Rhythm: regular rhythm Peripheral pulses: P eripheral pulses 2+ throughout GI: Inspection: non-distended GI Palp: Yes Soft to palpation, No Tenderness to palpation present (GI) and No Guarding due to palpation present (GI) A uscultation: normal bowel sounds Skin: General skin exam: normal color Neuro: General: moves all extremities and no focal motor deficits Speech: n ormal speech Extrem: General: normal to inspection and no edema Psych: Mental Status: mental status grossly normal Attitude: cooperative Insight: Good insight present (Psych) Judgement: Good judgement present (Psych) Results Labs 04/19/24 03:19 04/19/24 05:19 Labs: Abnormal lab results 04/19/24 04/19/24 04/19/24 Range/Units 03:19 05:17 05:19 RBC 3.48 L (4.6-6.20) M/mm3 Hgb 10.1 L (14.0-18.0) g/dL Hct 32.7 L (42.0-52.0) % MCHC 30.9 L (32-36) g/dl RDW 17.5 H (11.5-14.5) % [place] % (Auto) 14.0 H (2.6-8.5) % [place] # (Auto) 0.8 H (0.1-0.6) K/mm3 Sodium 135 L 136 L (137-145) mmol/L Potassium 6.2 H* (3.4-5.0) mmol/L Anion Gap 13 H (4-12) mmol/L BUN 71 H D 71 H (9-20) mg/dL Creatinine 14.72 H 15.49 H (0.7-1.3) mg/dL Estimated GFR 4 L 4 L (59 - ) Glucose 49 L* (65-110) mg/dL POC Capillary Glucose 55 L* (65-105) mg/dl Magnesium 3.2 H (1.6-2.3) mg/dL Alkaline Phosphatase 133 H (38-126) U/L NT-Pro-B Natriuret Pep > 93689 H (19.9-100) pg/mL 04/19/24 04/19/24 Range/Units 07:17 11:27 RBC (4.6-6.20) M/mm3 Hgb (14.0-18.0) g/dL Hct (42.0-52.0) % MCHC (32-36) g/dl RDW (11.5-14.5) % [place] % (Auto) (2.6-8.5) % [place] # (Auto) (0.1-0.6) K/mm3 Sodium (137-145) mmol/L Potassium (3.4-5.0) mmol/L Anion Gap (4-12) mmol/L BUN (9-20) mg/dL Creatinine (0.7-1.3) mg/dL Estimated GFR (59 - ) Glucose (65-110) mg/dL POC Capillary Glucose 136 H 119 H (65-105) mg/dl Magnesium (1.6-2.3) mg/dL Alkaline Phosphatase (38-126) U/L NT-Pro-B Natriuret Pep (19.9-100) pg/mL Diabetes panel 04/19/24 04/19/24 Range/Units 03:19 05:19 Sodium 135 L 136 L (137-145) mmol/L Potassium 6.2 H* 4.9 (3.4-5.0) mmol/L Chloride 98 99 (98-107) mmol/L Carbon Dioxide 24 26 (22-30) mmol/L BUN 71 H D 71 H (9-20) mg/dL Creatinine 14.72 H 15.49 H (0.7-1.3) mg/dL Glucose 104 49 L* (65-110) mg/dL Calcium 9.2 10.0 (8.4-10.2) mg/dL AST 21 (17-59) U/L ALT 9 (6-50) U/L Alkaline Phosphatase 133 H (38-126) U/L Total Protein 7.0 (6.3-8.2) g/dL Albumin 4.0 (3.5-5.1) g/dL Calcium panel 04/19/24 04/19/24 Range/Units 03:19 05:19 Calcium 9.2 10.0 (8.4-10.2) mg/dL Albumin 4.0 (3.5-5.1) g/dL Pituitary panel 04/19/24 04/19/24 Range/Units 03:19 05:19 Sodium 135 L 136 L (137-145) mmol/L Potassium 6.2 H* 4.9 (3.4-5.0) mmol/L Chloride 98 99 (98-107) mmol/L Carbon Dioxide 24 26 (22-30) mmol/L BUN 71 H D 71 H (9-20) mg/dL Creatinine 14.72 H 15.49 H (0.7-1.3) mg/dL Glucose 104 49 L* (65-110) mg/dL Calcium 9.2 10.0 (8.4-10.2) mg/dL Adrenal panel 04/19/24 04/19/24 Range/Units 03:19 05:19 Sodium 135 L 136 L (137-145) mmol/L Potassium 6.2 H* 4.9 (3.4-5.0) mmol/L Chloride 98 99 (98-107) mmol/L Carbon Dioxide 24 26 (22-30) mmol/L BUN 71 H D 71 H (9-20) mg/dL Creatinine 14.72 H 15.49 H (0.7-1.3) mg/dL Glucose 104 49 L* (65-110) mg/dL Calcium 9.2 10.0 (8.4-10.2) mg/dL Total Bilirubin 0.5 (0.2-1.3) mg/dL AST 21 (17-59) U/L ALT 9 (6-50) U/L Alkaline Phosphatase 133 H (38-126) U/L Total Protein 7.0 (6.3-8.2) g/dL Albumin 4.0 (3.5-5.1) g/dL All other labs normal. Imaging Additional studies: ITS Impressions Chest X-Ray 04/19/24 10:01 IMPRESSION: 1. Mild atelectasis in right lower lung zone. 2. Cardiomegaly.
[2024-04-19] MEDS: hydrALAZINE HCL 20 MG/ML VIAL IV PUSH (12:02)
[2024-04-19] MEDS: hydrALAZINE HCL 50 MG TABLET 100 MG PO ×2 (13:14→21:50)
[2024-04-19 17:42] LABS: Glucose Point of Care 117 mg/dl (65-105)
[2024-04-19] MEDS: ATORVASTATIN 20 MG TABLET PO (20:33)
[2024-04-19 20:41] LABS: Glucose Point of Care 146 mg/dl (65-105)
[2024-04-20] VITALS: PULSE 90
[2024-04-20 06:04] LABS: Hematocrit 35.2 % (42.0-52.0); Mean Corpuscular HGB Conc 31.3 g/dl (32-36); Mean Corpuscular Hemoglobin 28.6 pg (26-34); Mean Corpuscular Volume 91.7 fl (80-100); Mean Platelet Volume 9.9 fl (7.4-10.4); Platelet Count Result 209 k/mm3 (150-375); Red Blood Count 3.84 M/mm3 (4.6-6.20); Red Cell Distribution Width 17.3 % (11.5-14.5); White Blood Count 7.3 K/mm3 (4.5-10.0)
[2024-04-20 06:14] LABS: Alanine Aminotransferase 10 U/L (6-50); Albumin Level 3.9 g/dL (3.5-5.1); Alkaline Phosphatase 126 U/L (38-126); Anion Gap 10 mmol/L (4-12); Aspartate Amino Transferase 16 U/L (17-59); Bilirubin,Total 0.5 mg/dL (0.2-1.3); Blood Urea Nitrogen 49 mg/dL (9-20); Carbon Dioxide 29 mmol/L (22-30); Chloride 97 mmol/L (98-107); Estimated CRCL calculation 8 ml/min; Estimated Glomerular Filt Rate 7; Glucose 94 mg/dL (65-110); Magnesium 2.8 mg/dL (1.6-2.3); Potassium 4.7 mmol/L (3.4-5.0); Sodium 136 mmol/L (137-145)
[2024-04-20] MEDS: hydrALAZINE HCL 50 MG TABLET 100 MG PO (06:24)
[2024-04-20 08:13] VITALS: PULSE 84
[2024-04-20] MEDS: carvediloL 25 MG TABLET PO (08:13)
--- NOTE | 2024-04-20 10:29 | P.DS_ITS ---
DS: Admitting Diagnosis Discharge Date 04/20/24 Admitting Diagnosis (1) Uncontrolled hypertension: Code(s): I10 - Essential (primary) hypertension Status: Chronic (2) Other fluid overload: Code(s): E87.79 - Other fluid overload Status: Acute (3) Hyperkalemia: Code(s): E87.5 - Hyperkalemia Status: Acute (4) Dialysis catheter clot or failure: Status: Acute DS: Discharge Diagnosis Discharge Diagnosis (1) Uncontrolled hypertension: Code(s): I10 - Essential (primary) hypertension Status: Chronic (2) Other fluid overload: Code(s): E87.79 - Other fluid overload Status: Acute (3) Hyperkalemia: Code(s): E87.5 - Hyperkalemia Status: Acute (4) Dialysis catheter clot or failure: Status: Acute DS: Summary Hospital Course Hospital Course: Patient is a 48-year-old male with history of end-stage renal disease on h emodialysis Thursday, hypertension, GERD, present ED with a chief complaint of malfunction of dialysis catheter. Patient has end-stage renal disease on hemodialysis, patient's dialysis catheter is found have less output in past 3 weeks. his output is normally on 400 and it has been consistently around 250. Patient denies chest pain, shortness breast, cough, fever, chills, also denies headache, focal weakness, abdomen pain nausea vomiting diarrhea. Patient came to ED for evaluation treatment. Upon arrival in the ED, patient was afebrile, but has uncontrolled hypertension 176 /107 patient has tachypnea, pulse ox 95 on room air, CBC showed anemia hemoglobin 10.1 close baseline, hyponatremia 135, hyperkalemia 6.2, medicine 3.2,. I read EKG, EKG showed sinus rhythm, T-wave inverted lead 1 and aVL but this is not new finding comparing to previous EKGs, I read the chest x-ray, x-ray showed pulmonary congestion. Patient received calcium gluconate lokelma, dextrose with insulin push, repeated potassium 4.9 ER physician consulted general surgeon for dialysis catheter replacement and also consulted crane hoist or lift operator for dialysis. We admit patient for further evaluation and management The following med issues have been addressed during hospitalization Dialysis catheter failure patient's dialysis catheter is found have less output in past 3 weeks. his output is normally on 400 and it has been consistently around 250. Consulted general surgeon for catheter replacement Plans replace catheter today End-stage renal disease on hemodialysis, hyperkalemia, fluid overloaded Patient on dialysis Thursday. Patient has catheter failure about 3 weeks Upon arrival in the ED, patient was found have acute hypokalemia, uncontrolled hypertension, fluid overload on chest x-ray Patient received calcium gluconate lokelma, dextrose with insulin push, repeated potassium 4.9 Patient needs dialysis today after catheter replacement ER physician consulted the crane hoist or lift operator Follow-up BMP Patient underwent hemodialysis yesterday. Uncontrolled hypertension, Due to fluid overload Continue home medication lisinopril 40 mg daily p.o., nifedipine 90 mg daily p.o., hydralazine 100 mg q.8 hours p.o., clonidine 0.3 mg t.i.d. p.o., Patient needs dialysis per crane hoist or lift operator Chronic anemia No obvious bleeding Likely resulting from chronic renal failure Patient is on Epogen GERD Continue Protonix 40 mg daily p.o. Patient left AMA, riskd of AMA were explained to the patient, including short of breath, acute heart failure, even . the patient expressed he understood Time Spent with Patient Time attestation: Total time spent providing and/or coordinating discharge services: Exam Narrative: GENERAL: Pleasant, in no acute distress. Well-nourished. - EYES: EOMI. Anicteric. - HENT: Moist mucous membranes. - LUNGS: Coarse breath sound bilateral base, tachypnea - CARDIOVASCULAR: Regular rate and rhyth m. No murmur. No JVD. - ABDOMEN: Soft, non-tender and non-dist ended. No palpable masses. - EXTREMITIES: No edema. Peripheral puls es 2+. Non-tender. - NEUROLOGIC: No focal neurological defi cits. CN II-XII grossly intact. - PSYCHIATRIC: Awake, Alert and oriented x 3. Appropriate mood and affect. - SKIN: No rashes or lesions. Warm. - LYMPH: No cervical lymphadenopathy. DS: Data Data Completed and Pending Labs on day of discharge: Labs from last 24 hours 04/20/24 04/19/24 04/19/24 05:48 20:31 17:40 WBC 7.3 RBC 3.84 L Hgb 11.0 L Hct 35.2 L MCV 91.7 MCH 28.6 MCHC 31.3 L RDW 17.3 H Plt Count 209 MPV 9.9 Sodium 136 L Potassium 4.7 Chloride 97 L Carbon Dioxide 29 Anion Gap 10 BUN 49 H D Creatinine 10.17 H Estim Creat Clear Calc 8 Estimated GFR 7 L Glucose 94 POC Capillary Glucose 146 H 117 H Calcium 10.0 Magnesium 2.8 H Total Bilirubin 0.5 AST 16 L ALT 10 Alkaline Phosphatase 126 Total Protein 7.0 Albumin 3.9 04/19/24 11:27 WBC RBC Hgb Hct MCV MCH MCHC RDW Plt Count MPV Sodium Potassium Chloride Carbon Dioxide Anion Gap BUN Creatinine Estim Creat Clear Calc Estimated GFR Glucose POC Capillary Glucose 119 H Calcium Magnesium Total Bilirubin AST ALT Alkaline Phosphatase Total Protein Albumin Discharge Plan Discharge Consulting providers: Kimo Candelario; Brett Healy Patient Disposition: Left Against Medical Advice Patient Language: Persian Discharge Medications: No Action carvedilol 25 mg tablet 25 mg PO BID Qty: 60 0RF atorvastatin 20 mg tablet 20 mg PO HS Qty: 30 0RF clonidine HCl 0.3 mg tablet 0.3 mg PO TID Qty: 90 0RF citalopram 20 mg tablet 20 mg PO DAILY Qty: 30 0RF nifedipine 90 mg Tablet Extended Release 24hr 90 mg PO DAILY Qty: 30 0RF hydralazine 100 mg tablet 100 mg PO Q8H Qty: 90 0RF pantoprazole 40 mg tablet,delayed release (DR/EC) 40 mg PO QAM Qty: 30 0RF hydroxyzine HCl 25 mg Tablet 25 mg PO BID PRN (Reason: Itching) Qty: 30 0RF lisinopril 40 mg tablet 40 mg PO DAILY Qty: 30 0RF escitalopram oxalate 10 mg tablet 10 mg PO DAILY Qty: 30 0RF calcium acetate(phosphat bind) 667 mg capsule 1,334 mg PO TIDWM Qty: 60 0RF Epogen 10,000 unit/mL Solution 10,000 units IVPUSH MOWEFR Qty: 0 0RF Rx Instructions: [facility] carvedilol 25 mg tablet 25 mg PO BID nifedipine 90 mg tablet extended release 90 mg PO DAILY clonidine HCl 0.3 mg tablet 0.3 mg PO TID hydralazine 100 mg tablet 100 mg PO TID lisinopril 40 mg tablet 40 mg PO DAILY citalopram 20 mg tablet 20 mg PO DAILY pantoprazole 40 mg tablet,delayed release (DR/EC) 40 mg PO DAILY megestrol 40 mg tablet 40 mg PO DAILY hydroxyzine HCl 25 mg tablet 25 mg PO BID PRN (Reason: Itching) cholecalciferol (vitamin D3) 1,250 mcg (50,000 unit) capsule 1,250 mcg PO WEEKLY Rx Instructions: pt takes Thursday sevelamer carbonate 800 mg tablet 800 mg PO TID Date of admission: 04/19/24 04:19 Primary Care Provider: UNKNOWN,DOCTOR Admitting Provider: Christopher Lagos V. Attending physician on admission: Claudio Crawley Condition: Stable
--- NOTE | 2024-04-20 14:23 | PM.PNGS ---
Progress Note: A&P Assessment and Plan (1) Hemodialysis catheter malfunction: Code(s): T82.41XA - Breakdown (mechanical) of vascular dialysis catheter, initial encounter Status: Acute Assessment and Plan: I discussed the case with Nephrology, who reports having some issues about custodial through his dialysis treatment yesterday even after giving him alteplase. Nephrology is requesting to replace his tunneled hemodialysis catheter. I discussed the details of the procedure, risks, benefits, and alternatives were discussed with the patient in detail. He agrees to move forward with surgery but remains agitated about his NPO status. Will keep him NPO and will add him onto the surgery schedule this afternoon as he ate solid food this morning against his NPO order. (2) End-stage renal disease on hemodialysis: Code(s): N18.6 - End stage renal disease; Z99.2 - Dependence on renal dialysis Status: Acute Plan I have discussed the patient's case and plan of care with Dr. Healy. We were called later in the day by nursing staff and notified that the patient left AMA, therefore his surgery has been cancelled. Subjective Subjective Date/Time Seen: 04/20/24 08:53 Interval history: Patient seen this morning and is NPO for procedure. He is agitated about not being able to eat or drink this morning. I explained to him numerous times the reason for being NPO prior to surgery and the risks it would pose to eat prior to anesthesia. He was eating Bernard crackers when I walked in the room even knowing he was NPO. Other than his complaints about not eating or drinking right now, he has no other complaints at this time. Exam Narrative: Left chest tunneled hemodialysis catheter with dressing dry and intact Const: General: no acute distress and other (Agitated but comfortable) Orientation/consciousness: patient oriented x3 Objective Data Vital Signs Vital Signs: Vital Signs - 24 hr 04/19/24 14:30 04/19/24 14:45 04/19/24 15:00 Temperature Pulse Rate 93 90 88 Respiratory Rate Blood Pressure 134/82 132/81 124/81 Pulse Oximetry Oxygen Delivery 04/19/24 15:15 04/19/24 15:30 04/19/24 15:45 Temperature Pulse Rate 87 90 88 Respiratory Rate Blood Pressure 116/75 130/68 132/78 Pulse Oximetry Oxygen Delivery 04/19/24 16:00 04/19/24 16:00 04/19/24 16:00 Temperature Pulse Rate 88 89 89 Respiratory Rate 21 H Blood Pressure 127/74 Pulse Oximetry 98 Oxygen Delivery Room Air 04/19/24 16:00 04/19/24 16:15 04/19/24 16:30 Temperature Pulse Rate 89 88 88 Respiratory Rate 21 H Blood Pressure 127/74 125/78 124/84 Pulse Oximetry 98 Oxygen Delivery 04/19/24 16:45 04/19/24 17:00 04/19/24 17:17 Temperature Pulse Rate 89 90 89 Respiratory Rate Blood Pressure 142/78 H 138/83 137/81 Pulse Oximetry Oxygen Delivery 04/19/24 17:25 04/19/24 18:00 04/19/24 18:00 Temperature 98.1 F Pulse Rate 90 91 92 Respiratory Rate 16 21 H Blood Pressure 130/86 Pulse Oximetry 96 97 Oxygen Delivery 04/19/24 20:00 04/19/24 22:31 04/20/24 00:00 Temperature 97.6 F Pulse Rate 92 84 90 Respiratory Rate 21 H 20 Blood Pressure 139/75 Pulse Oximetry 97 95 Oxygen Delivery Room Air 04/20/24 08:12 04/20/24 08:13 Temperature Pulse Rate 84 Respiratory Rate Blood Pressure Pulse Oximetry Oxygen Delivery Room Air Intake/Output Intake/Output: Intake & Output 04/17/24 04/18/24 04/19/24 04/20/24 23:59 23:59 23:59 23:59 Intake Total 960 1000 Output Total 2500 Balance -1540 1000 Meds/Results Radiology Results: ITS Impressions Chest X-Ray 04/19/24 10:01 IMPRESSION: 1. Mild atelectasis in right lower lung zone. 2. Cardiomegaly. Labs Labs: Laboratory Results - last 24 hr 04/19/24 04/19/24 04/20/24 17:40 20:31 05:48 WBC 7.3 RBC 3.84 L Hgb 11.0 L Hct 35.2 L MCV 91.7 MCH 28.6 MCHC 31.3 L RDW 17.3 H Plt Count 209 MPV 9.9 Sodium 136 L Potassium 4.7 Chloride 97 L Carbon Dioxide 29 Anion Gap 10 BUN 49 H D Creatinine 10.17 H Estim Creat Clear Calc 8 Estimated GFR 7 L Glucose 94 POC Capillary Glucose 117 H 146 H Calcium 10.0 Magnesium 2.8 H Total Bilirubin 0.5 AST 16 L ALT 10 Alkaline Phosphatase 126 Total Protein 7.0 Albumin 3.9
== END 2024-04-20 10:02 | disposition left against medical advice (07) ==
LOC: ANHED 04:14 → ANHIMU 08:17 → ANHICU 08:19 → ANH3MED 21:32
PROVIDERS: Internal Medicine; Internal Medicine Nephrology; Admitting Provider Internal Medicine; Emergency Provider Emergency Medicine; Visit Provider Hospitalist
DX: T82.41XA Breakdown (mechanical) of vascular dialysis catheter, initial encounter (principal); I13.2 Hypertensive heart and chronic kidney disease with heart failure and with stage 5 chronic kidney disease, or end stage renal disease; N18.6 End stage renal disease; I50.9 Heart failure, unspecified; Z99.2 Dependence on renal dialysis; E87.79 Other fluid overload; D63.1 Anemia in chronic kidney disease; E87.5 Hyperkalemia; I25.10 Atherosclerotic heart disease of native coronary artery without angina pectoris; I25.2 Old myocardial infarction; K21.9 Gastro-esophageal reflux disease without esophagitis; E16.2 Hypoglycemia, unspecified; N25.81 Secondary hyperparathyroidism of renal origin; F41.8 Other specified anxiety disorders; Z79.899 Other long term (current) drug therapy; Z87.891 Personal history of nicotine dependence; Z53.29 Procedure and treatment not carried out because of patient's decision for other reasons
CPT/HCPCS: 36415; 71045; 80048; 80053; 82948; 83735; 83880; 85025; 85027; 86706; 87340; 93005; 96374; 96375; 96376; 99285; A9270; G0257; G0378; J0360; J0612; J1644; J1815; J2997; J7030